=== PATIENT | female | born 1955 | race Caucasian/White ===

== ENCOUNTER → 2016-05-16 | Outpatient (CLI) | payer MEDICAID, OTHER ==
[~2016-05-16] MED LIST: CEPH500C PO; CYCL10TA9 PO; HYDR-757 PO; PRD20T PO; RIVA15TA PO; RIVA20TA4 PO; TRAM50TA2 PO
--- OUTSIDE RECORDS SUMMARY | 2016-05-16 11:12 | XMS REPORT | Continuity of Care Document ---
Author Author [facility] Organization [facility] Address Unknown Phone Unavailable Care Team Providers Care Rubber Engraver Name Role Phone Ifeoma Anderson PCP [phone] Source Comments Some departments are not documenting in the electronic medical record. If you do not see the information that you expected, contact Release of Information in the Health Information Management department at [phone] for further assistance in locating additional records.[facility] Active Allergies and Adverse Reactions No Known Allergies Current Medications No known medications Active Problems Not on file Social History Tobacco Use Types Packs/Day Years Used Date Never Smoker Alcohol Use Drinks/Week oz/Week Comments No 0 Standard 0.0 drinks or equivalent Last Filed Vital Signs Vital Sign Reading Time Taken Blood Pressure 128/84 10/31/2015 2:26 PM CDT Pulse 87 10/31/2015 2:26 PM CDT Temperature - - Respiratory Rate 14 10/31/2015 2:26 PM CDT Height 1.549 m (5' 1") 10/31/2015 2:26 PM CDT Weight 77.111 kg (170 lb) 10/31/2015 2:26 PM CDT Body Mass Index 32.14 10/31/2015 2:26 PM CDT Oxygen Saturation 98% 10/31/2015 2:26 PM CDT Plan of Care Health Maintenance Due Date Last Done Comments Hepatitis C Screening 1954 Physical (Comprehensive) 1961 Exam Pertussis Vaccine 1965 Tetanus Vaccine 12/09/1971 Cervical Cancer Screening 12/09/1975 Breast Cancer Screening 1994 Colorectal Cancer 2004 Screening Shingles Vaccine 2014 Influenza Vaccine 12/13/2015 Results from Last 3 Months Not on file
--- NOTE | 2016-05-16 14:30 | Diagnostic Imaging Report ---
PROCEDURE: US Thyroid. TECHNIQUE: Multiple real-time grayscale images were obtained of the thyroid in various projections. INDICATION: Thyroid nodule follow-up FINDINGS: Right lobe of the thyroid measures 3.7 x 1.4 x 1.4 cm. Left lobe of the thyroid measures 3.2 x 1.2 x 1.0 cm. There is a 10 x 12 x 11 mm nodule in the central aspect of the right lobe of the thyroid. It is isoechoic with some areas of cystic transformation consistent with a degenerating colloid nodule. There is no abnormal vascularity or microcalcification. IMPRESSION: Solitary thyroid nodule in the right lobe of the thyroid is not significantly changed from sonogram of 10/03/2015 and has features suggesting a degenerating colloid nodule. Dictated by: Dictated on workstation # [id number]
== END ==
LOC: RAD 11:09
PROVIDERS: ATTEND Family Medicine
DX: E04.1 Nontoxic single thyroid nodule (principal)
CPT/HCPCS: 76536

== ENCOUNTER 2017-04-03 09:35 | Emergency (ER) | payer MEDICAID, OTHER ==
[~2017-04-03] VITALS: Ht 154.9 cm; Wt 77.1 kg
[2017-04-03 10:12] LABS: BASOPHILS % (AUTO) 0 % (0-10); EOSINOPHILS % (AUTO) 0 % (0-10); LYMPHOCYTES # (AUTO) 2.3 X 10^3 (1.0-4.0); LYMPHOCYTES % (AUTO) 10 % (12-44); MEAN CORPUSCULAR HEMOGLOBIN 32 PG (25-34); MEAN CORPUSCULAR HGB CONC 34 G/DL (32-36); MEAN CORPUSCULAR VOLUME 92 FL (80-99); MEAN PLATELET VOLUME 10.3 FL (7.4-10.4); MONOCYTES # (AUTO) 1.8 X 10^3 (0.0-1.0); MONOCYTES % (AUTO) 8 % (0-12); NEUTROPHILS % (AUTO) 82 % (42-75); PLATELET COUNT 333 10^3/uL (130-400); RED BLOOD COUNT 4.67 10^6/uL (4.35-5.85); RED CELL DISTRIBUTION WIDTH 11.9 % (10.0-14.5); WHITE BLOOD COUNT 23.1 10^3/uL (4.3-11.0)
[2017-04-03] MEDS ORDERED: RANI75TA21 PO (10:22)
[2017-04-03 10:29] LABS: ALANINE AMINOTRANSFERASE 30 U/L (0-55); ALBUMIN 4.2 GM/DL (3.2-4.5); ANION GAP 14 MMOL/L (5-14); ASPARTATE AMINO TRANSFERASE 27 U/L (5-34); BILIRUBIN,TOTAL 0.5 MG/DL (0.1-1.0); BLOOD UREA NITROGEN 12 MG/DL (7-18); BUN/CREATININE RATIO 13; CALCIUM 9.7 MG/DL (8.5-10.1); CARBON DIOXIDE 19 MMOL/L (21-32); CHLORIDE 104 MMOL/L (98-107); CREATININE SERUM 0.93 MG/DL (0.60-1.30); GFR ESTIMATED > 60; GLUCOSE 154 MG/DL (70-105); POTASSIUM 4.4 MMOL/L (3.6-5.0); SODIUM 137 MMOL/L (135-145); TOTAL PROTEIN 7.7 GM/DL (6.4-8.2)
[2017-04-03] MEDS ORDERED: ONDANSETRON 4 MG/2 ML (SDV) Z0FRAN ONE (10:36)
--- NOTE | 2017-04-03 10:41 | Diagnostic Imaging Report ---
INDICATION: Fever. Cough. Back pain. COMPARISON: 11/14/2014/ FINDINGS: Single frontal view of the chest demonstrates normal heart size and pulmonary vascularity. The lungs are well aerated and clear. No large pleural effusion or pneumothorax is seen. The visualized osseous structures show no acute abnormalities. IMPRESSION: 1. No acute cardiopulmonary process. Dictated by: Dictated on workstation # [id number]
[2017-04-03 10:50] LABS: LYMPHOCYTES % (MANUAL) 15 %; NEUTROPHILS % (MANUAL) 82 %
--- NOTE | 2017-04-03 11:30 | ED General ---
General Chief Complaint: Fever-Adult/Adol Stated Complaint: SORE THROAT,NAUSEA Nursing Triage Note: PT HAS HAD FEVER, STATES TOOK MOTRIN APPROX 2 HOURS AGO, COUGHING UP YELLOW GREEN SPUTUM, HAS PAIN IN BACK Nursing Sepsis Screen: No Definite Risk Source of Information: Patient Exam Limitations: No Limitations History of Present Illness Time Seen by Provider: 11:00 Initial Comments The patient reports that today she has been ill for about a week. Initially it had to do with a sore throat and a slight cough. His progressed over the week. Over the last 2 days she has been coughing up colored phlegm and has felt chilled and sweaty. She has not taken her temperature. There has been some dyspnea. She has a past history of cigarette smoke. Timing/Duration: 6-7 Days Severity: Moderate Associated Systoms: Cough, Diaphoresis, Fever/Chills, Loss of Appetite, Shortness of Air Allergies and Home Medications Allergies Coded Allergies: No Known Drug Allergies (Unverified , 06/07/13) Home Medications Ranitidine HCl 75 Mg Tablet, Unknown Dose PO, (Reported) Constitutional: see HPI EENTM: nose congestion, throat pain Respiratory: see HPI, cough, dyspnea on exertion, orthopnea, phlegm, short of breath Cardiovascular: no symptoms reported Gastrointestinal: nausea, vomiting Musculoskeletal: muscle pain Skin: no symptoms reported Psychiatric/Neurological: No Symptoms Reported Hematologic/Lymphatic: No Symptoms Reported Immunological/Allergic: no symptoms reported Past Wefznme-Ybxgql-Dyrdqi Hx Patient Social History Recent Foreign Travel: No Contact w/Someone Who Travel: No Recent Infectious Disease Expo: No Recent Hopitalizations: No Seasonal Allergies Seasonal Allergies: No Respiratory Respiratory Disorders: Pulmonary Embolism Cardiovascular Cardiac Disorders: Deep Vein Thrombosis Neurological Neurological Disorders: Brain Tumor Blood Transfusions Adverse Reaction to a Blood Tr: No Family Medical History Significant Family History: No Pertinent Family Hx Physical Exam-Suspected Sepsis Physical Exam Vital Signs Vital Sign - Last 12Hours 04/03/17 09:55 Temp 98.8 Pulse 125 Resp 15 B/P (MAP) 142/80 (100) Capillary Refill : Less Than 3 Seconds Blood Pressure Mean: 100 General Appearance: Other (course and somewhat flushed) Eyes: Bilateral Eye Normal Inspection HEENT: Normal ENT Inspection Neck: Normal Inspection Respiratory: Decreased Breath Sounds Cardiovascular: Regular Rate, Rhythm, No Edema, No Gallop, No JVD, No Murmur Gastrointestinal: Normal Bowel Sounds, No Organomegaly, No Pulsatile Mass, Non Tender, Soft Back: Normal Inspection, No CVA Tenderness, No Vertebral Tenderness Extremity: Normal Capillary Refill, Normal Inspection, Normal Range of Motion, Non Tender, No Calf Tenderness, No Pedal Edema Neurologic/Psychiatric: Alert, Oriented x3 Skin: normal color, warm/dry Lymphatic: No Adenopathy Focused Exam Evaluation Lactate Level Laboratory Tests 04/03/17 09:55: Lactic Acid Level 1.42 Lactic Acid Level Laboratory Tests Test 04/03/17 09:55 Lactic Acid Level 1.42 MMOL/L (0.50-2.00) Progress/Results/Core Measures Suspected Sepsis Recent Fever Within 48 Hours: No Infection Criteria Present: None New/Unexplained Altered Menta: No Sepsis Screen: No Definite Risk Sepsis Diagnosis: SIRS Temperature:98.8 Pulse: 125 Respiratory Rate: 15 Laboratory Tests 04/03/17 09:55: White Blood Count 23.1H Blood Pressure 142 /80 Mean: 100 Laboratory Tests 04/03/17 09:55: Lactic Acid Level 1.42 Laboratory Tests 04/03/17 09:55: Creatinine 0.93, Platelet Count 333, Total Bilirubin 0.5 Results/Orders Lab Results Laboratory Tests Test 04/03/17 09:55 Range/Units White Blood Count 23.1 H 4.3-11.0 10^3/uL Red Blood Count 4.67 4.35-5.85 10^6/uL Hemoglobin 14.8 11.5-16.0 G/DL Hematocrit 43 35-52 % Mean Corpuscular Volume 92 80-99 FL Mean Corpuscular Hemoglobin 32 25-34 PG Mean Corpuscular Hemoglobin Concent 34 32-36 G/DL Red Cell Distribution Width 11.9 10.0-14.5 % Platelet Count 333 130-400 10^3/uL Mean Platelet Volume 10.3 7.4-10.4 FL Neutrophils (%) (Auto) 82 H 42-75 % Lymphocytes (%) (Auto) 10 L 12-44 % Monocytes (%) (Auto) 8 0-12 % Eosinophils (%) (Auto) 0 0-10 % Basophils (%) (Auto) 0 0-10 % Neutrophils # (Auto) 19.0 H 1.8-7.8 X 10^3 Lymphocytes # (Auto) 2.3 1.0-4.0 X 10^3 Monocytes # (Auto) 1.8 H 0.0-1.0 X 10^3 Eosinophils # (Auto) 0.0 0.0-0.3 10^3/uL Basophils # (Auto) 0.0 0.0-0.1 10^3/uL Neutrophils % (Manual) 82 % Lymphocytes % (Manual) 15 % Monocytes % (Manual) 3 % Blood Morphology Comment NORMAL Sodium Level 137 135-145 MMOL/L Potassium Level 4.4 3.6-5.0 MMOL/L Chloride Level 104 98-107 MMOL/L Carbon Dioxide Level 19 L 21-32 MMOL/L Anion Gap 14 5-14 MMOL/L Blood Urea Nitrogen 12 7-18 MG/DL Creatinine 0.93 0.60-1.30 MG/DL Estimat Glomerular Filtration Rate > 60 BUN/Creatinine Ratio 13 Glucose Level 154 H 70-105 MG/DL Lactic Acid Level 1.42 0.50-2.00 MMOL/L Calcium Level 9.7 8.5-10.1 MG/DL Total Bilirubin 0.5 0.1-1.0 MG/DL Aspartate Amino Transf (AST/SGOT) 27 5-34 U/L Alanine Aminotransferase (ALT/SGPT) 30 0-55 U/L Alkaline Phosphatase 105 40-136 U/L Total Protein 7.7 6.4-8.2 GM/DL Albumin 4.2 3.2-4.5 GM/DL Micro Results Microbiology 04/03/17 Influenza Types A,B Antigen (ALEJANDRO) - Final, Complete My Orders Orders - LANCE HOLCOMB MD Cbc With Automated Diff (04/03/17 10:04) Comprehensive Metabolic Panel (04/03/17 10:04) Ua Culture If Indicated (04/03/17 10:04) Blood Culture (04/03/17 10:04) Influenza A And B Antigens (04/03/17 10:04) Sputum Culture (04/03/17 10:04) Chest 1 View, Ap/Pa Only (04/03/17 10:04) Lactic Acid Analyzer (04/03/17 10:04) Manual Differential (04/03/17 09:55) Ondansetron Injection (Zofran Injectio (04/03/17 10:36) Ns Iv 1000 Ml (Sodium Chloride 0.9%) (04/03/17 11:45) Ceftriaxone Injection (Rocephin Injectio (04/03/17 11:45) Medications Given in ED Current Medications Medications Dose Ordered Sig/Nisa Route Start Time Stop Time Status Last Admin Dose Admin Ondansetron HCl 4 mg STK-MED ONCE .ROUTE 04/03/17 10:36 04/03/17 10:39 DC 04/03/17 10:40 4 MG Vital Signs/I&O Vital Sign - Last 12Hours 04/03/17 09:55 Temp 98.8 Pulse 125 Resp 15 B/P (MAP) 142/80 (100) Capillary Refill : Less Than 3 Seconds Blood Pressure Mean: 100 Departure Impression Impression: Primary Impression: bronchitis Disposition: 01 HOME, SELF-CARE Condition: Stable/Unchanged Departure-Patient Inst. Decision time for Depature: 12:31 Referrals: ELHAM MARTINO MD (PCP/Family) Primary Care Physician Add. Discharge Instructions: All discharge instructions reviewed with patient and/or family. Voiced understanding. Beginning tomorrow morning take the Omnicef twice daily until gone. Lots of liquids If condition declines return to emergency room Scripts Cefdinir (Cefdinir) 300 Mg Capsule 300 MG PO TWICE A DAY, #14 CAP Prov: LANCE HOLCOMB MD 04/03/17 LANCE HOLCOMB MD Apr 03, 2017 11:29
[2017-04-03] MEDS ORDERED: NS IV 1000 ML 1,000 ML IV SCH (11:45)
[2017-04-03] MEDS ORDERED: cefTRIAXone INJECTION 1,000 MG in NS (IVPB) 50 ML IV ONE (11:45)
[2017-04-03] MEDS ORDERED: CEFD300C3 PO (12:36)
[2017-04-03] MEDS ORDERED: ONDA8TAB9 PO (12:52)
[2017-04-03 13:38] VITALS: BP 142/80
== END 2017-04-03 13:38 | disposition home or self-care (01) ==
LOC: EDUNIT# 09:35 → ER 09:38
DX: J40 Bronchitis, not specified as acute or chronic (principal); Z86.718 Personal history of other venous thrombosis and embolism; Z86.711 Personal history of pulmonary embolism; Z86.012 Personal history of benign carcinoid tumor
CPT/HCPCS: 36415; 71010; 80053; 83605; 85007; 85027; 87040; 87804; 96374; 96375

== ENCOUNTER → 2017-05-05 | Outpatient (CLI) | payer MEDICAID ==
[~2017-05-05] MED LIST changes: +CEFD300C3 PO; +ONDA8TAB9 PO; +RANI75TA21 PO
--- NOTE | 2017-05-05 12:13 | Diagnostic Imaging Report ---
INDICATION: Routine screening. COMPARISON: Comparison is made with prior exams from 11/15/2013 and 01/21/2012. FINDINGS: Moderate density is noted bilaterally. The parenchymal pattern is stable. No dominant mass or malignant appearing microcalcifications are seen. The axillae are unremarkable. IMPRESSION: No mammographic features suspicious for malignancy are identified. ACR BI-RADS Category 1: Negative. Result letter will be mailed to the patient. Note: At least 10% of breast cancer is not imaged by mammography. Dictated by: Dictated on workstation # [id number]
== END ==
LOC: RAD 10:49
PROVIDERS: ATTEND Physician Assistant
DX: Z12.31 Encounter for screening mammogram for malignant neoplasm of breast (principal)
CPT/HCPCS: 77067

== ENCOUNTER → 2017-05-05 | Outpatient (CLI) | payer MEDICAID ==
--- NOTE | 2017-05-06 08:45 | Diagnostic Imaging Report ---
INDICATION: 19-ftff-eguw history of smoking. Screening protocol. Intermittent chest pain and shortness of air. COMPARISON: None. TECHNIQUE: Low-dose CT of the chest was performed per department protocol for low dose chest screening. COMPARISON: CT angio chest dated 10/18/2014. FINDINGS: Evaluation of lung carrera demonstrates small 6 mm groundglass micronodular density within the posterior left lower lobe. More superiorly within the anterolateral margins of the left lower lobe, there are 2 additional 6 mm groundglass micronodular densities as well (images 178 and 142, series 5). No other distinct pulmonary nodules or masses are seen. There is mild air trapping consistent with background of emphysematous disease. There is no focal consolidation, pleural effusion, or pneumothorax. Cardiomediastinal structures are suboptimally evaluated given the low-dose noncontrast nature of the exam, but the heart size is within normal limits. There is no large pericardial effusion. 8 mm paratracheal lymph node is noted interposed between the azygos vein and trachea. This is stable. Otherwise, no pathologically enlarged or morphologically abnormal adenopathy is seen within the mediastinum, cynthia, nor axilla. Bony structures show no acute abnormalities. Included portions of the upper abdomen are unremarkable. IMPRESSION: 1. Three separate 6 mm groundglass micronodules within the left lower lobe as described above. Continued annual screening with low-dose CT of the chest is recommended. 2. Otherwise, no acute cardiopulmonary process. LungRads Category: 2 Modifiers: None. Other significant findings: None. Dictated by: Dictated on workstation # [id number]
== END ==
LOC: RAD 10:51
PROVIDERS: ATTEND Physician Assistant
DX: Z12.2 Encounter for screening for malignant neoplasm of respiratory organs (principal); R92.8 Other abnormal and inconclusive findings on diagnostic imaging of breast; Z87.891 Personal history of nicotine dependence

== ENCOUNTER 2017-10-29 05:33 | Outpatient (CLI) | payer MEDICAID ==
[~2017-10-29] VITALS: Ht 154.9 cm; Wt 77.1 kg
[2017-10-29] MEDS ORDERED: RANI150T46 PO (10:36)
[2017-10-29] MEDS ORDERED: CALC500T7 PO (10:36)
== END 2017-10-29 10:43 ==
LOC: PREOP 05:33
PROVIDERS: ATTEND Surgery
DX: Z01.818 Encounter for other preprocedural examination (principal)

== ENCOUNTER 2017-11-02 09:09 | Emergency (ER) | payer MEDICAID ==
[~2017-11-02] VITALS: Ht 154.9 cm; Wt 77.1 kg
[~2017-11-02 09:09] MED LIST changes: +CALC500T7 PO; +RANI150T46 PO
--- OUTSIDE RECORDS SUMMARY | 2017-11-02 09:15 | XMS REPORT | Clinical Summary ---
Author Author [facility] Organization [facility] Address Unknown Phone Unavailable Care Team Providers Care Crankshaft Straightener Name Role Phone Ifeoma Anderson MD PCP Sade Helm MD Unavailable Source Comments Some departments are not documenting in the electronic medical record. If you do not see the information that you expected, contact Release of Information in the Health Information Management department at [phone] for further assistance in locating additional records.[facility] Allergies No Known Allergies Current Medications No known medications Active Problems Not on file Family History Medical History Relation Name Comments Cancer Father Relation Name Status Comments Father Mother Social History Tobacco Use Types Packs/Day Years Used Date Never Smoker Alcohol Use Drinks/Week oz/Week Comments No 0 Standard 0.0 drinks or equivalent Sex Assigned at Date Recorded Not on file Last Filed Vital Signs Vital Sign Reading Time Taken Blood Pressure 128/84 10/31/2015 2:26 PM CDT Pulse 87 10/31/2015 2:26 PM CDT Temperature - - Respiratory Rate 14 10/31/2015 2:26 PM CDT Oxygen Saturation 98% 10/31/2015 2:26 PM CDT Inhaled Oxygen - - Concentration Weight 77.1 kg (170 lb) 10/31/2015 2:26 PM CDT Height 154.9 cm (5' 1") 10/31/2015 2:26 PM CDT Body Mass Index 32.12 10/31/2015 2:26 PM CDT Plan of Treatment Health Maintenance Due Date Last Done Comments HEPATITIS C SCREENING 1955 PHYSICAL (COMPREHENSIVE) 1961 EXAM PERTUSSIS VACCINE 1965 HIV SCREENING 1969 TETANUS VACCINE 12/09/1971 CERVICAL CANCER SCREENING 1984 BREAST CANCER SCREENING 1994 COLORECTAL CANCER 2004 SCREENING SHINGLES RECOMBINANT 2004 VACCINE (1 of 2) INFLUENZA VACCINE 01/11/2018 Results Not on filefrom Last 3 Months
--- OUTSIDE RECORDS SUMMARY | 2017-11-02 09:17 | XMS REPORT | Clinical Summary ---
Author Author User, [employer] Organization Count Includes [facility] Physician [place] Address Unknown Phone Unavailable Allergies, Adverse Reactions, Alerts Allergy Name Reaction Description Start Date Severity Status Provider No Known Allergies Salazar Neo Conditions or Problems Problem Name Problem Code Onset Date Status Entry Date Provider Comment Standard Description Annotate NEUROPATHY, IDIOPATHIC PERIPHERAL 356.9 Resolved Che Loera Unspecified idiopathic peripheral neuropathy BACK PAIN 724.5 Resolved Che Loera Backache, unspecified ABDOMINAL PAIN, RIGHT LOWER QUADRANT 789.03 Resolved Che Loera Abdominal pain, right lower quadrant NAUSEA 787.02 Resolved Che Loera Nausea alone FLANK PAIN, LEFT 789.09 Resolved Che Loera Abdominal pain, other specified site; multiple sites ABNORMAL VAGINAL BLEEDING 626.9 Resolved Che Loera Unspecified disorders of menstruation and other abnormal bleeding from female genital tract SINUSITIS, SPHENOIDAL, ACUTE 461.3 Resolved Che Loera Acute sphenoidal sinusitis BRONCHITIS 490 Resolved Che Loera Bronchitis, not specified as acute or chronic INFLUENZA W/RESPIRATORY MANIFESTATION NEC 487.1 Inactive Che Loera Influenza with other respiratory manifestations LUMBAR RADICULOPATHY, LEFT 724.4 Active Che Loera Thoracic or lumbosacral neuritis or radiculitis, unspecified WELL WOMAN V70.0 Resolved Che Loera Routine general medical examination at a health care facility DIZZINESS 780.4 Active Che Loera Dizziness and giddiness NECK PAIN 723.1 Active Che Loera Cervicalgia DISORDERS OF MENINGES, NOT ELSEWHERE CLASSIFIED 349.2 Active Che Loera Disorders of meninges, not elsewhere classified ULCERATIVE (CHRONIC) PROCTITIS 556.2 Active Che Loera Ulcerative (chronic) proctitis THYROID NODULE 241.0 Active Che Loera Nontoxic uninodular goiter DVT 451.19 Active Che Loera Phlebitis and thrombophlebitis of other deep vessels of lower extremities OTHER PULMONARY EMBOLISM AND INFARCTION 415.19 Active Che Loera Other pulmonary embolism and infarction UTI 599.0 Active Che Loera Urinary tract infection, site not specified NONTRAUMATIC RUPTURE OF ACHILLES TENDON 727.67 Active Che Loera Nontraumatic rupture of achilles tendon Medication List Medication Instructions Start Date Stop Date Generic Name NDC Status Provider Patient Instruction XARELTO 20 MG TABS 1 po daily beginning 11/08/14 RIVAROXABAN 42851175556 Active Che Loera CALMOSEPTINE 0.44-20.625 % OINT Apply to affected areas TID prn MENTHOL-ZINC OXIDE 93708049274 Active Che Loera VALIUM 2 MG TAB 1 PO one hour before MRI and may repeat if needed DIAZEPAM 89081286753 No Longer Active Che Loera AUGMENTIN 875-125 MG TAB 1 PO BID AMOXICILLIN-POT CLAVULANATE 44715633988 No Longer Active Che ROSALES'S NASAL SPRAY (DEXAMETHASONE, GENTAMICIN, SALINE) 2 puffs each nostril TID for [address] ROSALES'S NASAL SPRAY ( DEXAMETHASONE, GENTAMICIN, SALINE) No Longer Active Che Loera ATENOLOL 25 MG TABS 1 po daily ATENOLOL 62206353047 No Longer Active Che Loera MULTIVITAMINS TABS 1 po daily MULTIPLE VITAMIN 71831271875 Active Che Loera Vital Signs Date Name Value Unit Range Description blood pressure, diastolic - 8462-4 75 mm[Hg] BP whatley blood pressure, systolic - 8480-6 130 mm[Hg] BP sys pulse rate E&M - 8867-4 78 /min Heart rate respiratory rate E&M - 9279-1 14 /min Resp rate temperature E&M 99.2 [degF] Body temperature weight E&M - 3141-9 169 [lb_av] Weight Measured blood pressure, diastolic - 8462-4 80 mm[Hg] BP whatley blood pressure, systolic - 8480-6 120 mm[Hg] BP sys pulse rate E&M - 8867-4 84 /min Heart rate respiratory rate E&M - 9279-1 14 /min Resp rate temperature E&M 97.8 [degF] Body temperature weight E&M - 3141-9 170 [lb_av] Weight Measured blood pressure, diastolic - 8462-4 88 mm[Hg] BP whatley blood pressure, systolic - 8480-6 134 mm[Hg] BP sys pulse rate E&M - 8867-4 74 /min Heart rate respiratory rate E&M - 9279-1 14 /min Resp rate weight E&M - 3141-9 173 [lb_av] Weight Measured blood pressure, diastolic - 8462-4 96 mm[Hg] BP whatley blood pressure, systolic - 8480-6 140 mm[Hg] BP sys pulse rate E&M - 8867-4 74 /min Heart rate respiratory rate E&M - 9279-1 14 /min Resp rate weight E&M - 3141-9 174 [lb_av] Weight Measured blood pressure, diastolic - 8462-4 85 mm[Hg] BP whatley blood pressure, systolic - 8480-6 135 mm[Hg] BP sys pulse rate E&M - 8867-4 102 /min Heart rate respiratory rate E&M - 9279-1 14 /min Resp rate temperature E&M 97.8 [degF] Body temperature weight E&M - 3141-9 176 [lb_av] Weight Measured Diagnostic Results Date Name Value Unit Range Description Clinical Lists Update: CBC,CMP,FLP,TSH,HGA1C,ESR - Chemistry protein, total, serum 6.9 g/dL glucose, plasma fasting 101 mg/dL chloride, serum 110 mmol/L cholesterol, serum 253 mg/dL bilirubin, serum, total 0.4 mg/dL carbon dioxide, venous blood 20 mmol/L triglyceride, serum, fasting 135 mg/dL creatinine, serum 0.88 mg/dL very low density lipoproteins 27 mg/dL albumin, serum 4.1 g/dL aspartate aminotransferase (SGOT), serum 20 U/L alkaline phosphatase, serum 80 U/L Estimated Glomerular Filtration Rate (calc) >60 mL/min/1.73m2 urea nitrogen, blood 20 mg/dL alanine aminotransferase (SGPT), serum 19 U/L calcium, serum 9.6 mg/dL sodium, serum 141 mmol/L potassium, serum 4.5 mmol/L LDL cholesterol, serum 175 mg/dL thyroid stimulating hormone, serum 2.06 u[iU]/mL hemoglobin A1C, blood, as % of total hemoglobin 5.7 % HDL cholesterol, serum 62 mg/dL Clinical Lists Update: CBC,CMP,FLP,TSH,HGA1C,ESR - Hematology erythrocyte sedimentation rate 15 mm/h hematocrit, blood 42 % hemoglobin, blood 14.6 g/dL platelet count 332 10*3/mm3 red blood cell distribution width 12.1 % erythrocyte (RBC) count 4.53 10*6/mm3 mean corpuscular volume, RBC 94 fL leukocyte count, blood 8.0 10*3/mm3 Clinical Lists Update: ER LABS - Chemistry albumin, serum 4.5 g/dL alkaline phosphatase, serum 82 U/L urea nitrogen, blood 11 mg/dL calcium, serum 9.9 mg/dL chloride, serum 105 mmol/L carbon dioxide, venous blood 27 mmol/L creatinine, serum 1.08 mg/dL potassium, serum 4.3 mmol/L protein, total, serum 7.3 g/dL aspartate aminotransferase (SGOT), serum 18 U/L alanine aminotransferase (SGPT), serum 20 U/L bilirubin, serum, total 0.6 mg/dL sodium, serum 139 mmol/L glucose, plasma fasting 169 mg/dL Estimated Glomerular Filtration Rate (calc) 52 mL/min/1.73m2 Clinical Lists Update: ER LABS - Coagulation PTT patient 26 s international normalized ratio (INR) 1.0 prothrombin time (patient) 13.1 s Clinical Lists Update: ER LABS - Hematology mean corpuscular volume, RBC 93 fL hemoglobin, blood 15.3 g/dL hematocrit, blood 46 % erythrocyte (RBC) count 4.88 10*6/mm3 red blood cell distribution width 12.2 % leukocyte count, blood 10.2 10*3/mm3 platelet count 311 10*3/mm3 Clinical Lists Update: ER LABS 10-19-14 - Chemistry Estimated Glomerular Filtration Rate (calc) >60 mL/min/1.73m2 glucose, plasma fasting 108 mg/dL sodium, serum 139 mmol/L bilirubin, serum, total 0.6 mg/dL alanine aminotransferase (SGPT), serum 18 U/L aspartate aminotransferase (SGOT), serum 17 U/L protein, total, serum 6.4 g/dL potassium, serum 4.3 mmol/L creatinine, serum 0.8 mg/dL carbon dioxide, venous blood 25 mmol/L chloride, serum 107 mmol/L calcium, serum 9.5 mg/dL urea nitrogen, blood 8 mg/dL alkaline phosphatase, serum 77 U/L albumin, serum 4.0 g/dL Clinical Lists Update: ER LABS 10-19-14 - Coagulation international normalized ratio (INR) 1.0 PTT patient 26 s prothrombin time (patient) 13.1 s Clinical Lists Update: ER LABS 10-19-14 - Hematology erythrocyte (RBC) count 4.75 10*6/mm3 leukocyte count, blood 12.0 10*3/mm3 hematocrit, blood 44 % hemoglobin, blood 14.9 g/dL platelet count 293 10*3/mm3 red blood cell distribution width 12.3 % mean corpuscular volume, RBC 93 fL Clinical Lists Update: ER LABS 10-19-14 - Urinalysis pH, urine, semiquantitative 5 nitrite, urine, semiquantitative neg ketones, urine, by test strip 1+ bilirubin, urine neg glucose, urine, semiquantitative neg specific gravity, urine 1.020 urobilinogen, urine, semiquantitative (dipstick) normal appearance, urine Cloudy Yellow WBC urine on microscopy 5-10 {Cells}/[HPF] RBC urine by microscopy 0-2 bacteria, urine microscopy few hyaline casts, urine none /[LPF] protein, urine, semiquantitative (dipstick) 2+ mucus on urinalysis small blood in urine (hemoglobin) by dipstick 1+ epithelial cells, urine 0-2 /[LPF] Clinical Lists Update: ER LABS 10-18-14 - Chemistry Estimated Glomerular Filtration Rate (calc) 52 mL/min/1.73m2 glucose, plasma fasting 169 mg/dL albumin, serum 4.5 g/dL alkaline phosphatase, serum 82 U/L urea nitrogen, blood 11 mg/dL calcium, serum 9.9 mg/dL chloride, serum 105 mmol/L carbon dioxide, venous blood 27 mmol/L creatinine, serum 1.08 mg/dL potassium, serum 4.3 mmol/L protein, total, serum 7.3 g/dL sodium, serum 139 mmol/L bilirubin, serum, total 0.6 mg/dL alanine aminotransferase (SGPT), serum 20 U/L aspartate aminotransferase (SGOT), serum 18 U/L Clinical Lists Update: ER LABS 10-18-14 - Coagulation international normalized ratio (INR) 1.0 PTT patient 26 s prothrombin time (patient) 13.1 s Clinical Lists Update: ER LABS 10-18-14 - Hematology leukocyte count, blood 10.2 10*3/mm3 hematocrit, blood 46 % hemoglobin, blood 15.3 g/dL platelet count 311 10*3/mm3 erythrocyte (RBC) count 4.88 10*6/mm3 red blood cell distribution width 12.2 % mean corpuscular volume, RBC 93 fL Clinical Lists Update: ER LABS 11-14-14 - Chemistry Estimated Glomerular Filtration Rate (calc) 56 mL/min/1.73m2 glucose, plasma fasting 110 mg/dL albumin, serum 4.2 g/dL alkaline phosphatase, serum 73 U/L urea nitrogen, blood 18 mg/dL calcium, serum 9.6 mg/dL chloride, serum 105 mmol/L carbon dioxide, venous blood 24 mmol/L anion gap, serum 9 sodium, serum 138 mmol/L bilirubin, serum, total 0.4 mg/dL alanine aminotransferase (SGPT), serum 18 U/L aspartate aminotransferase (SGOT), serum 20 U/L protein, total, serum 6.7 g/dL potassium, serum 4.3 mmol/L creatinine, serum 1.01 mg/dL Clinical Lists Update: ER LABS 11-14-14 - Hematology erythrocyte (RBC) count 4.52 10*6/mm3 leukocyte count, blood 9.9 10*3/mm3 mean corpuscular volume, RBC 93 fL red blood cell distribution width 12.0 % hemoglobin, blood 14.2 g/dL platelet count 358 10*3/mm3 hematocrit, blood 42 % Encounters Code Encounter Date Provider Facility CPT-52118 Ofc Vst, Est Level IV 21:36:45 CDT Che Loera DO, FACP CPT-54594 Ofc Vst, Est Level IV 11:23:40 CDT Che Marina Luz Maria Loera, DO, FACP CPT-94767 Ofc Vst, Est Level IV 17:08:05 OCCUPATIONAL THERAPY AIDE Che Marina Luz Maria Loera, DO, FACP CPT-48248 Ofc Vst, Est Level IV 12:58:01 OCCUPATIONAL THERAPY AIDE Che Marina Luz Maria Loera, DO, FACP CPT-60100 Ofc Vst, Est Level IV 17:05:52 OCCUPATIONAL THERAPY AIDE Che Marina Luz Maria Loera, DO, FACP CPT-13015 Ofc Vst, Est Level III 12:04:27 OCCUPATIONAL THERAPY AIDE Che Marina Luz Maria Loera, DO, FACP CPT-26371 Ofc Vst, Est Level III 08:05:55 OCCUPATIONAL THERAPY AIDE Che Marina Luz Maria Loera, DO, FACP CPT-46329 Ofc Vst, New Level III 15:16:23 CDT Che Marina Luz Maria Loera, DO, FACP CPT-62553 Ofc Vst, Est Level III 10:03:49 CDT Che Loera Count Includes [facility] Physician [place] CPT-04459 Ofc Vst, New Level III 09:46:58 CDT Che Loera [facility] [place] Procedures Code Procedure Name Date Entry Date Standard Description CPT-46367 Preventive, Est, (40-64) 12:36:52 CDT
--- OUTSIDE RECORDS SUMMARY | 2017-11-02 09:18 | XMS REPORT ---
Author Author SHANA EDGE [facility] [employer] Address Unknown Phone Unavailable Care Team Providers Care Early Breastfeeding Care Specialist Name Role Phone SHANA EDGE CP Unavailable Allergies, Adverse Reactions, Alerts Substance Reaction Event Type Sulfamethoxazole questionable allergy Drug Allergy Problems Problem Type Condition Code Onset Dates Condition Status Problem Meningioma D32.9 Active Problem Thyroid nodule E04.1 Active Problem DVT (deep venous thrombosis), unspecified laterality I82.409 Active Problem Pure hypercholesterolemia E78.0 Active Assessment Dental examination Z01.20 Active Medications Medication Code System Code Instructions Start Date End Date Status Dosage Nystatin [facility] [address]-32 572522 UNIT/GM Externally Three times a day until rash gone x 2 days Dec 15, 2014 1 application to affected area Xarelto [facility] [address]-09 20 MG Orally Once a day November 08, 2014 1 tablet with food Keflex [facility] [address]-00 500 MG Orally 3 times a day Jan 24, 2015 Feb 03, 2015 1 capsule Procedures Procedure Coding System Code Date INTRAORL-PERIAPICAL 1 FILM 65563 CPT-4 D0220 Jan 30, 2015 INTRAORL-PERIAPICAL EA ADD FILM CPT-4 D0230 Jan 30, 2015 LTD ORAL EVALUATION - PROBLEM FOCUS CPT-4 D0140 Jan 30, 2015 Vital Signs Date/Time: Jan 30, 2015 Blood Pressure Diastolic 89 mmHg Blood Pressure Systolic 131 mmHg Results No Known Results Summary Purpose [employer] Submission
--- OUTSIDE RECORDS SUMMARY | 2017-11-02 09:18 | XMS REPORT ---
Author Author YOHANA SANDS Organization [employer] Address Unknown Phone Unavailable Care Team Providers Care Peer Financial Counselor Name Role Phone YOHANA SANDS CP Unavailable Allergies, Adverse Reactions, Alerts Substance Reaction Event Type Sulfamethoxazole questionable allergy Drug Allergy Problems Problem Type Condition ICD-9 Code Onset Dates Condition Status Problem Meningioma 225.2 Active Problem Thyroid nodule 241.0 Active Problem Venous thromboembolism (VTE) 453.9 Active Problem Hyperlipidemia 272.4 Active Assessment Dental examination V72.2 Active Medications No Known Medications Procedures Procedure Coding System Code Date INTRAORL-PERIAPICAL EA ADD FILM CPT-4 D0230 Dec 29, 2014 INTRAORL-PERIAPICAL EA ADD FILM CPT-4 D0230 Dec 29, 2014 PERIODIC ORAL EXAMINATION CPT-4 D0120 Dec 25, 2014 TOPICAL FLUORIDE VARNISH CPT-4 D1206 Dec 25, 2014 Periodontal maint procedures CPT-4 D4910 Dec 25, 2014 INTRAORL-PERIAPICAL 1 FILM 17138 CPT-4 D0220 Dec 25, 2014 INTRAORL-PERIAPICAL 1 FILM 46626 CPT-4 D0220 Dec 25, 2014 BITEWINGS - FOUR FILMS CPT-4 D0274 Dec 25, 2014 INTRAORL-PERIAPICAL 1 FILM 21833 CPT-4 D0220 Dec 25, 2014 Vital Signs Date/Time: Dec 25, 2014 Blood Pressure Diastolic 73 mmHg Blood Pressure Systolic 129 mmHg Results No Known Results Summary Purpose [employer] Submission
--- OUTSIDE RECORDS SUMMARY | 2017-11-02 09:18 | XMS REPORT ---
Author Author ELHAM MARTINO Organization [facility] Address [address] [place] [address] Care Team Providers Care Pasteuriser Operator Name Role Phone ELHAM MARTINO Unavailable PROBLEMS Type Condition ICD9-CM Code WUW76-CP Code Onset Dates Condition Status SNOMED Code Problem Thyroid nodule E04.1 Active 069356887 Problem Postmenopausal bleeding N95.0 Active 26335399 Problem Personal history of pulmonary embolism Z86.711 Active 154338904 Problem Prediabetes R73.03 Active 305078041 Problem Meningioma D32.9 Active 574989771 Problem History of DVT (deep vein thrombosis) Z86.718 Active 177148775 Problem Moderate single current episode of major depressive disorder F32.1 Active 06149581 Problem Pure hypercholesterolemia E78.00 Active 315725075 Problem Scoliosis, unspecified scoliosis type, unspecified spinal region M41.9 Active 545182635 Problem Left leg weakness M62.81 Active 055320764 Problem Other chronic pain G89.29 Active 41945278 Problem Low back pain M54.5 Active 742882493 ALLERGIES Substance Reaction Event Type Date Status Sulfamethoxazole questionable allergy Drug Allergy Apr, Active SOCIAL HISTORY Never Assessed PLAN OF CARE Activity Details Follow Up Next Avail for wellness visit with Selin Reason: VITAL SIGNS Height 61 in 2016-05-06 Weight 178 lbs 2016-05-06 Temperature 98.0 degrees Fahrenheit 2016-05-06 Heart Rate 90 bpm 2016-05-06 Respiratory Rate 20 2016-05-06 BMI 33.63 kg/m2 2016-05-06 Blood pressure systolic 138 mmHg 2016-05-06 Blood pressure diastolic 84 mmHg 2016-05-06 MEDICATIONS Medication Instructions Dosage Frequency Start Date End Date Duration Status Zantac 150 Maximum Strength 150 MG Orally Once a day 1 tablet at bedtime 24h Active Aleve 220 MG Active RESULTS Name Result Date Reference Range Ultrasound : Thyroid 2016-05-16 PROCEDURES No Known procedures IMMUNIZATIONS No Known Immunizations MEDICAL (GENERAL) HISTORY Type Description Date Medical History Thyroid has growth on it. Biospy was done by Dr. 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 Flores, Echo done Medical History partial hearing loss from reaction to antibiotic as child Medical History DVT/PE x2 (approx 1984 & 2014) Medical History hx of basal cell carcinoma to left cheek (2013) Medical History partial tear/rupture to Achilles, left knee pain, treated by Dr. Alvarado, but no surgery, not cleared by cardiology Medical History hx of ovarian cysts Surgical History Biopsy of thyroid 06/2014 Surgical History skin cancer removal cheek 12/2013 Surgical History right knee surgery at age 2 (drained the joint to r/o rheumatic fever) Surgical History Left leg ablasion 08/2015 Hospitalization History hospitalization for febrile illness, r/o rheumatic fever (lost hearing, had to learn to speak and walk again) 1957 Hospitalization History DVT/PE 1984 Hospitalization History DVT/PE 10/2014
--- OUTSIDE RECORDS SUMMARY | 2017-11-02 09:18 | XMS REPORT ---
Author Author ELHAM MARTINO Organization [facility] Address [address] [place] [address] Care Team Providers Care Form Block Maker Name Role Phone ELHAM MARTINO Unavailable PROBLEMS Type Condition ICD9-CM Code [id number] Code Onset Dates Condition Status SNOMED Code Problem Thyroid nodule E04.1 Active 736453503 Problem Postmenopausal bleeding N95.0 Active 14912709 Problem Personal history of pulmonary embolism Z86.711 Active 711353246 Problem Prediabetes R73.03 Active 242009692 Problem Meningioma D32.9 Active 875391522 Problem History of DVT (deep vein thrombosis) Z86.718 Active 382916950 Problem Moderate single current episode of major depressive disorder F32.1 Active 09947477 Problem Pure hypercholesterolemia E78.00 Active 705663221 Problem Scoliosis, unspecified scoliosis type, unspecified spinal region M41.9 Active 528662049 Problem Left leg weakness M62.81 Active 050551920 Problem Other chronic pain G89.29 Active 03287627 Problem Low back pain M54.5 Active 351557115 ALLERGIES No Known Allergies SOCIAL HISTORY No smoking Hx information available PLAN OF CARE VITAL SIGNS MEDICATIONS No Known Medications RESULTS No Results PROCEDURES No Known procedures IMMUNIZATIONS No Known Immunizations
--- OUTSIDE RECORDS SUMMARY | 2017-11-02 09:18 | XMS REPORT ---
Author Author ELHAM MARTINO Organization [facility] Address [address] [place] [address] Care Team Providers Care Mid Level Java Developer Name Role Phone ELHAM MARTINO Unavailable PROBLEMS Type Condition ICD9-CM Code [id number] Code Onset Dates Condition Status SNOMED Code Problem Thyroid nodule E04.1 Active 808442133 Problem Postmenopausal bleeding N95.0 Active 41484967 Problem Personal history of pulmonary embolism Z86.711 Active 187020698 Problem Prediabetes R73.03 Active 233470106 Problem Meningioma D32.9 Active 459864327 Problem History of DVT (deep vein thrombosis) Z86.718 Active 065509630 Problem Moderate single current episode of major depressive disorder F32.1 Active 36032628 Problem Pure hypercholesterolemia E78.00 Active 905407779 Problem Scoliosis, unspecified scoliosis type, unspecified spinal region M41.9 Active 401544227 Problem Left leg weakness M62.81 Active 843866715 Problem Other chronic pain G89.29 Active 36975279 Problem Low back pain M54.5 Active 657717305 ALLERGIES No Information SOCIAL HISTORY Never Assessed PLAN OF CARE VITAL SIGNS MEDICATIONS No [...]
--- OUTSIDE RECORDS SUMMARY | 2017-11-02 09:18 | XMS REPORT | Clinical Summary ---
Author Author User, REBECA Organization [facility]ician [facility] Address Unknown Phone Unavailable Allergies, Adverse Reactions, [...] Loera Routine general medical examination at a [facility] care facility DIZZINESS 780.4 Active Che Loera [...] TABS 1 po daily beginning 11/08/14 RIVAROXABAN 19295216568 Active Che Loera CALMOSEPTINE 0.44-20.625 % OINT Apply to affected areas TID prn MENTHOL-ZINC OXIDE 47137560058 Active Che Loera VALIUM 2 MG TAB 1 PO one hour before MRI and may repeat if needed DIAZEPAM 82393479949 No Longer Active Che Loera AUGMENTIN 875-125 MG TAB 1 PO BID AMOXICILLIN-POT CLAVULANATE 64734199974 No Longer Active Che ROSALES'S NASAL SPRAY (DEXAMETHASONE, GENTAMICIN, SALINE) 2 puffs each nostril TID for [address] ROSALES'S NASAL SPRAY ( DEXAMETHASONE, GENTAMICIN, SALINE) No Longer Active Che Loera ATENOLOL 25 MG TABS 1 po daily ATENOLOL 10851325996 No Longer Active Che Loera MULTIVITAMINS TABS 1 po daily MULTIPLE VITAMIN 38110400215 Active Che Loera Vital Signs Date Name Value Unit Range Description blood pressure, diastolic - 8462-4 95 mm[Hg] BP whatley blood pressure, systolic - 8480-6 150 mm[Hg] BP sys pulse rate E&M - 8867-4 78 /min Heart rate respiratory rate E&M - 9279-1 14 /min Resp rate temperature E&M 98.6 [degF] Body temperature weight E&M - 3141-9 169 [lb_av] Weight Measured blood pressure, diastolic - 8462-4 75 mm[Hg] [...] Description Clinical Lists Update: CBC,CMP,FLP,TSH,HGA1C,ESR - Chemistry Estimated Glomerular Filtration Rate (calc) >60 mL/min/1.73m2 glucose, plasma fasting 101 mg/dL albumin, serum 4.1 g/dL alkaline phosphatase, serum 80 U/L urea nitrogen, blood 20 mg/dL calcium, serum 9.6 mg/dL chloride, serum 110 mmol/L cholesterol, serum 253 mg/dL carbon dioxide, venous blood 20 mmol/L very low density lipoproteins 27 mg/dL sodium, serum 141 mmol/L triglyceride, serum, fasting 135 mg/dL bilirubin, serum, total 0.4 mg/dL alanine aminotransferase (SGPT), serum 19 U/L aspartate aminotransferase (SGOT), serum 20 U/L protein, total, serum 6.9 g/dL potassium, serum 4.5 mmol/L LDL cholesterol, serum 175 mg/dL thyroid stimulating hormone, serum 2.06 u[iU]/mL hemoglobin A1C, blood, as % of total hemoglobin 5.7 % HDL cholesterol, serum 62 mg/dL creatinine, serum 0.88 mg/dL Clinical Lists Update: CBC,CMP,FLP,TSH,HGA1C,ESR - Hematology red blood cell distribution width 12.1 % hematocrit, blood 42 % hemoglobin, blood 14.6 g/dL platelet count 332 10*3/mm3 erythrocyte (RBC) count 4.53 10*6/mm3 leukocyte count, blood 8.0 10*3/mm3 mean corpuscular volume, RBC 94 fL erythrocyte sedimentation rate 15 mm/h Clinical Lists Update: ER LABS - Chemistry carbon dioxide, venous blood 27 mmol/L glucose, plasma fasting 169 mg/dL Estimated Glomerular Filtration Rate (calc) 52 mL/min/1.73m2 albumin, serum 4.5 g/dL alkaline phosphatase, serum 82 U/L urea nitrogen, blood 11 mg/dL calcium, serum 9.9 mg/dL chloride, serum 105 mmol/L sodium, serum 139 mmol/L creatinine, serum 1.08 mg/dL potassium, serum 4.3 mmol/L protein, total, serum 7.3 g/dL aspartate aminotransferase (SGOT), serum 18 U/L alanine aminotransferase (SGPT), serum 20 U/L bilirubin, serum, total 0.6 mg/dL Clinical Lists Update: ER LABS - Coagulation international normalized ratio (INR) 1.0 PTT patient 26 s prothrombin time (patient) 13.1 s Clinical Lists Update: ER LABS - Hematology hemoglobin, blood 15.3 g/dL hematocrit, blood 46 % platelet count 311 10*3/mm3 erythrocyte (RBC) count 4.88 10*6/mm3 leukocyte count, blood 10.2 10*3/mm3 mean corpuscular volume, RBC 93 fL red blood cell distribution width 12.2 % Clinical Lists Update: ER LABS 10-19-14 - Chemistry potassium, serum 4.3 mmol/L albumin, serum 4.0 g/dL aspartate aminotransferase (SGOT), serum 17 U/L alanine aminotransferase (SGPT), serum 18 U/L bilirubin, serum, total 0.6 mg/dL protein, total, serum 6.4 g/dL alkaline phosphatase, serum 77 U/L urea nitrogen, blood 8 mg/dL calcium, serum 9.5 mg/dL chloride, serum 107 mmol/L carbon dioxide, venous blood 25 mmol/L creatinine, serum 0.8 mg/dL Estimated Glomerular Filtration Rate (calc) >60 mL/min/1.73m2 glucose, plasma fasting 108 mg/dL sodium, serum 139 mmol/L Clinical Lists Update: ER LABS 10-19-14 - Coagulation PTT patient 26 s prothrombin time (patient) 13.1 s international normalized ratio (INR) 1.0 Clinical Lists Update: ER LABS 10-19-14 - Hematology red blood cell distribution width 12.3 % hemoglobin, blood 14.9 g/dL platelet count 293 10*3/mm3 mean corpuscular volume, RBC 93 fL leukocyte count, blood 12.0 10*3/mm3 erythrocyte (RBC) count 4.75 10*6/mm3 hematocrit, blood 44 % Clinical Lists Update: ER LABS 10-19-14 - Urinalysis glucose, urine, semiquantitative neg protein, urine, semiquantitative (dipstick) 2+ blood in urine (hemoglobin) by dipstick 1+ mucus on urinalysis small epithelial cells, urine 0-2 /[LPF] hyaline casts, urine none /[LPF] bacteria, urine microscopy few RBC urine by microscopy 0-2 WBC urine on microscopy 5-10 {Cells}/[HPF] appearance, urine Cloudy Yellow urobilinogen, urine, semiquantitative (dipstick) normal specific gravity, urine 1.020 pH, urine, semiquantitative 5 nitrite, urine, semiquantitative neg ketones, urine, by test strip 1+ bilirubin, urine neg Clinical Lists Update: ER LABS 10-18-14 - Chemistry Estimated Glomerular Filtration Rate (calc) 52 mL/min/1.73m2 glucose, plasma fasting 169 mg/dL sodium, serum 139 mmol/L bilirubin, serum, total 0.6 mg/dL alanine aminotransferase (SGPT), serum 20 U/L aspartate aminotransferase (SGOT), serum 18 U/L protein, total, serum 7.3 g/dL potassium, serum 4.3 mmol/L creatinine, serum 1.08 mg/dL carbon dioxide, venous blood 27 mmol/L chloride, serum 105 mmol/L calcium, serum 9.9 mg/dL urea nitrogen, blood 11 mg/dL alkaline phosphatase, serum 82 U/L albumin, serum 4.5 g/dL Clinical Lists Update: ER LABS 10-18-14 - Coagulation prothrombin time (patient) 13.1 s PTT patient 26 s international normalized ratio (INR) 1.0 Clinical Lists Update: ER LABS 10-18-14 - Hematology hemoglobin, blood 15.3 g/dL hematocrit, blood 46 % platelet count 311 10*3/mm3 erythrocyte (RBC) count 4.88 10*6/mm3 leukocyte count, blood 10.2 10*3/mm3 mean corpuscular volume, RBC 93 fL red blood cell distribution width 12.2 % Clinical Lists Update: ER LABS 11-14-14 - Chemistry bilirubin, serum, total 0.4 mg/dL sodium, serum 138 mmol/L aspartate aminotransferase (SGOT), serum 20 U/L protein, total, serum 6.7 g/dL alkaline phosphatase, serum 73 U/L albumin, serum 4.2 g/dL anion gap, serum 9 glucose, plasma fasting 110 mg/dL Estimated Glomerular Filtration Rate (calc) 56 mL/min/1.73m2 alanine aminotransferase (SGPT), serum 18 U/L potassium, serum 4.3 mmol/L creatinine, serum 1.01 mg/dL carbon dioxide, venous blood 24 mmol/L chloride, serum 105 mmol/L calcium, serum 9.6 mg/dL urea nitrogen, blood 18 mg/dL Clinical Lists Update: ER LABS 11-14-14 - Hematology hematocrit, blood 42 % hemoglobin, blood 14.2 g/dL platelet count 358 10*3/mm3 erythrocyte (RBC) count 4.52 10*6/mm3 leukocyte count, blood 9.9 10*3/mm3 mean corpuscular volume, RBC 93 fL red blood cell distribution width 12.0 % Encounters Code Encounter Date Provider Facility CPT-76168 Ofc Vst, Est Level IV 12:54:43 CDT Che Loera, DO, FACP CPT-08038 Ofc Vst, Est Level IV 21:36:45 CDT Che Marina Loera, DO, FACP CPT-40352 Ofc Vst, Est Level IV 11:23:40 CDT Che Loera, DO, FACP CPT-86464 Ofc Vst, Est Level IV 17:08:05 COMPILATION CLERK Che Loera, DO, FACP CPT-14601 Ofc Vst, Est Level IV 12:58:01 COMPILATION CLERK Che Loera, DO, FACP CPT-38018 Ofc Vst, Est Level IV 17:05:52 COMPILATION CLERK Che Loera, DO, FACP CPT-60745 Ofc Vst, Est Level III 12:04:27 COMPILATION CLERK Che Loera, DO, FACP CPT-70498 Ofc Vst, Est Level III 08:05:55 COMPILATION CLERK Che Loera, DO, FACP CPT-07745 Ofc Vst, New Level III 15:16:23 CDT Che Loera, DO, FACP CPT-51986 Ofc Vst, Est Level III 10:03:49 CDT Che Loera [facility] CPT-18562 Ofc Vst, New Level III 09:46:58 CDT Che Loera [facility] Procedures Code Procedure Name Date Entry Date Standard Description CPT-84651 Preventive, Est, (40-64) 12:36:52 CDT
--- OUTSIDE RECORDS SUMMARY | 2017-11-02 09:19 | XMS REPORT ---
Author Author ODETTE MICHEL [facility] eClinicalWorks Address Unknown Phone Unavailable Care Team Providers Care Awning Hanger Helper Name Role Phone ODETTE MICHEL CP Unavailable Allergies, Adverse Reactions, Alerts Substance Reaction Event Type Sulfamethoxazole questionable allergy Drug Allergy Problems Problem Type Condition ICD-9 Code Onset Dates Condition Status Problem Meningioma 225.2 Active Problem Thyroid nodule 241.0 Active Problem Venous thromboembolism (VTE) 453.9 Active Assessment Thyroid nodule 241.0 Active Assessment Venous thromboembolism (VTE) 453.9 Active Assessment Meningioma 225.2 Active Medications Medication Code System Code Instructions Start Date End Date Status Dosage Xarelto [facility] [address]-01 20 MG Orally Once a day November 08, 2014 1 tablet with food Procedures Procedure Coding System Code Date Office Visit, Est Pt., Level 4 CPT-4 34881 Dec 06, 2014 Vital Signs Date/Time: Dec 06, 2014 Temperature 98.3 F Weight 170.4 lbs Height 61 in BMI 32.19 Index Blood Pressure Diastolic 82 mmHg Blood Pressure Systolic 136 mmHg Cardiac Monitoring Heart Rate 88 bpm Results No Known Results Summary Purpose eClinicalWorks Submission
--- OUTSIDE RECORDS SUMMARY | 2017-11-02 09:19 | XMS REPORT ---
Author Author ELHAM MARTINO Organization [facility] Address [address] [place] [address] Care Team Providers Care Progressive Care Unit Registered Nurse Name Role Phone ELHAM MARTINO Unavailable PROBLEMS Type Condition ICD9-CM Code LEG96-ED Code Onset Dates Condition Status SNOMED Code Problem Postmenopausal bleeding N95.0 Active 86237490 Problem Scoliosis, unspecified scoliosis type, unspecified spinal region M41.9 Active 049797582 Problem Left leg weakness M62.81 Active 131102559 Problem Major depressive disorder, single episode, mild F32.0 Active 43825843 Problem Reflux esophagitis K21.0 Active 113093220 Problem Other chronic pain G89.29 Active 38126750 Problem Low back pain M54.5 Active 580343310 Problem Dysphagia, unspecified type R13.10 Active 40380139 Problem Pure hypercholesterolemia E78.00 Active 108493391 Problem Meningioma D32.9 Active 558771725 Problem History of DVT (deep vein thrombosis) Z86.718 Active 812450124 Problem Thyroid nodule E04.1 Active 943026076 Problem Prediabetes R73.03 Active 079516251 Problem Personal history of pulmonary embolism Z86.711 Active 706083527 ALLERGIES No Information ENCOUNTERS Encounter Location Date Diagnosis [facility] [id number] [place] [address]44- [address]293 Sep, [facility] [id number] [place] [address]444- [address]17 Sep, [facility] [id number] [place] [address]60 [address] August, Insect bite (nonvenomous), right lower leg, initial encounter S80.861A and Bitten or stung by nonvenomous insect and other nonvenomous arthropods, initial encounter W57.XXXA [place] [id number] [place] [address] 90531- 7976 August, Thyroid nodule E04.1 ; Prediabetes R73.03 ; Pure hypercholesterolemia E78.00 ; Low back pain M54.5 and Need for hepatitis C screening test Z11.59 [address] [place] [id number] [place] [address] 40608- 1458 04 Apr, 2017 Screening for breast cancer Z12.[address] [address] 29 Mar, 2017 Well woman exam (no gynecological exam) Z00.00 ; Pure hypercholesterolemia E78.00 ; Prediabetes R73.03 ; Acute bronchitis, unspecified organism J20.9 ; Thyroid nodule E04.1 ; Encounter for screening for lung cancer Z12.2 and Encounter for screening for malignant neoplasm of colon Z12.11 [address] [place] [id number] [place] [address] 12312- 9352 Mar, [place] [id number] [place] [address] 62474- 4992 15 Feb, 2017 Moderate single current episode of major depressive disorder F32.1 ; Major depressive disorder, single episode, mild F32.0 and Other chronic pain G89.29 [address] [place] [id number] [place] [address] 91929- 0046 13 Feb, 2017 Reflux esophagitis K21.0 ; Dysphagia, unspecified type R13.10 ; Bereavement Z63.4 ; Low back pain M54.5 and Other chronic pain G89.29 [address] [place] [id number] [place] [address] 27313- 3834 13 May, 2016 Fever, unspecified fever cause R50.9 and Sinus pressure J34.89 [address] [place] [id number] [place] [address] 58701- 4671 07 May, 2016 Thyroid nodule E04.1 [place] [id number] [place] [address] 17638- 8367 06 May, 2016 [place] [id number] [place] [address] 53993- 7421 Apr, Dizziness R42 ; Thyroid nodule E04.1 and History of DVT ( deep vein thrombosis) Z86.718 [facility] [id number] [place] [address] 81924- 6508 Apr, [place] [id number] [place] [address] 89519- 0879 Mar, Other chronic pain G89.29 and Moderate single current episode of major depressive disorder F32.1 [place] [id number] [place] [address] 12247- 5902 Mar, [place] [id number] [place] [address] 78204- 6994 Mar, [place] [id number] [place] [address] 69681- 0247 Mar, Pain of left calf M79.662 and Swelling of left lower extremity M79.89 [place] [id number] [place] [address] 29960- 7714 Feb, Low back pain M54.5 [place] [id number] [place] [address] 69965- 4810 Feb, Pure hypercholesterolemia E78.00 [place] [id number] [place] [address] 24789- 3541 Feb, Low back pain M54.5 ; Other chronic pain G89.29 and Pure hypercholesterolemia E78.00 [place] [address] [place] [address] 20424- 7143 August, Left leg weakness M62.81 and Scoliosis, unspecified scoliosis type, unspecified spinal region M41.9 [place] [id number] [place] [address] 92150- 8324 August, Left leg weakness M62.81 and Scoliosis of thoracic spine, unspecified scoliosis type M41.9 [place] [address] [address] August, [facility] [id number] [place] [address] 76997- 6594 17 May, 2015 [facility] [id number] [id number] 29 Apr, 2015 Dental examination Z01.20 [place] [id number] [place] [address] 64364- 8363 14 Apr, 2015 [place] [id number] [place] [address] 18022- 0368 07 Apr, 2015 DVT (deep venous thrombosis), left I82.402 ; Pain in right knee M25.561 ; Pain in left knee M25.562 ; Meningioma D32.9 and Family history of coronary artery disease Z82.49 [place] [id number] [place] [address] 47278- 6573 Mar, Well woman exam Z01.419 [place] [id number] [place] [address] 28470- 2722 Mar, [place] [id number] [place] [address] 71979- 5622 Feb, [place] [address] [place] [address] 89538- 6739 Feb, Well woman exam Z01.419 ; Encounter for screening for malignant neoplasm of cervix Z12.4 ; BMI 32.0-32.9,adult Z68.32 ; Personal history of pulmonary embolism Z86.711 ; History of blood clots Z86.718 ; History of thyroid nodule Z86.39 ; Postmenopausal bleeding N95.0 ; Right lower quadrant pain R10.31 ; Friable cervix N88.8 ; Dense breast tissue R92.2 ; Depressed mood F32.9 and Abdominal cramping R10.9 [place] [address] [place] [address] 45407- 3045 Feb, [place] [id number] [place] [address] 77988- 2529 Feb, [facility] [address] 8[address]- 8363 Jan, DVT (deep venous thrombosis), unspecified laterality I82.409 and Chest pain, unspecified chest pain type R07.9 [facility] [address] 95[address]- 0696 Jan, Insect bite W57.XXXA and DVT (deep venous thrombosis), left I82.402 [facility] [address] [id number] Jan, Dental examination Z01.20 [place] [address] 06462- 8773 Jan, Infected tooth K04.7 [facility] [address] 5[address]- 4663 Dec, [facility] [address] [id number] Dec, Dental examination V72.2 [facility] [address] 94480- 8382 Dec, Candidal skin infection 112.3 [facility] [address] 74160- 3511 Dec, Hyperlipidemia 272.4 [facility] [address] 38535- 8700 Nov, Venous thromboembolism (VTE) 453.9 ; Meningioma 225.2 and Thyroid nodule 241.0 [facility] [address] 47546- 6815 Oct, [facility] [address] 55603- 2206 Oct, [facility] [address] 58048- 5802 Sep, 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 [facility] [address] [address] 18 Sep, 2014 Upper back pain 724.5 and Chronic cough 786.2 [facility] [address] [id number] August, Conjunctivitis 372.30 [facility] [address] [address]- 3[address] Jul, [facility] [address] [address]- 8897 Jul, [facility] [id number] [place] [address] 20880- 7685 Jan, [facility] [id number] [place] [address] 11044- 2956 Jan, [facility] [id number] [place] [address] 47178- 9556 Jan, [facility] [address] [address]- 2786 Jan, [facility] [id number] [place] [address] 29052- 5377 Jan, [facility] [address] [address]- 4486 Jan, [facility] [address] [address]- 5[address] Mar, [facility] [address] [address]- [address] Mar, IMMUNIZATIONS No Known Immunizations SOCIAL HISTORY Never Assessed REASON FOR VISIT Mammogram order PLAN OF CARE VITAL SIGNS MEDICATIONS Unknown Medications RESULTS No Results PROCEDURES No Known procedures INSTRUCTIONS MEDICATIONS ADMINISTERED No Known Medications MEDICAL (GENERAL) HISTORY Type Description Date Medical [...]
--- OUTSIDE RECORDS SUMMARY | 2017-11-02 09:19 | XMS REPORT ---
Author Author TREY Muniz Organization [facility] Address [address] [place] [address] Care Team Providers Care Fire Control Technician B Name Role Phone TREY Muniz Unavailable PROBLEMS Type Condition ICD9-CM Code [id number] Code Onset Dates Condition Status SNOMED Code Problem Postmenopausal bleeding N95.0 Active 30919184 Problem Scoliosis, unspecified scoliosis type, unspecified spinal region M41.9 Active 912339549 Problem Left leg weakness M62.81 Active 602332833 Problem Major depressive disorder, single episode, mild F32.0 Active 34781515 Problem Reflux esophagitis K21.0 Active 488970682 Problem Other chronic pain G89.29 Active 96278407 Problem Low back pain M54.5 Active 043567180 Problem Dysphagia, unspecified type R13.10 Active 12384571 Problem Pure hypercholesterolemia E78.00 Active 511225208 Problem Meningioma D32.9 Active 167050674 Problem History of DVT (deep vein thrombosis) Z86.718 Active 962003711 Problem Thyroid nodule E04.1 Active 466869395 Problem Prediabetes R73.03 Active 272957896 Problem Personal history of pulmonary embolism Z86.711 Active 045099094 ALLERGIES Substance Reaction Event Type Date Status Sulfamethoxazole questionable allergy Drug Allergy Mar, Active ENCOUNTERS Encounter Location Date Diagnosis [facility] [address] [facility] [id number] [address] Sep, [facility] [id number] [place] [address] Sep, [facility] [id number] [address] August, Insect bite (nonvenomous), right lower leg, initial encounter S80.861A and Bitten or stung by nonvenomous insect and other nonvenomous arthropods, initial encounter W57.XXXA [place] [id number] [place] [address] 16135- [address] August, Thyroid nodule E04.1 ; Prediabetes R73.03 ; Pure hypercholesterolemia E78.00 ; Low back pain M54.5 and Need for hepatitis C screening test Z11.[address] [address]- [address] 04 Apr, 2017 Screening for breast cancer Z12.[address] [address]- [address] Mar, Well woman exam (no gynecological exam) Z00.00 ; Pure hypercholesterolemia E78.00 ; Prediabetes R73.03 ; Acute bronchitis, unspecified organism J20.9 ; Thyroid nodule E04.1 ; Encounter for screening for lung cancer Z12.2 and Encounter for screening for malignant neoplasm of colon Z12.11 [place] [id number] [place] [address]240- [address] Mar, [address] [address]- [address] 15 Feb, 2017 Moderate single current episode of major depressive disorder F32.1 ; Major depressive disorder, single episode, mild F32.0 and Other chronic pain G89.29 [place] [id number] [place] [address] 02582- 1660 Feb, Reflux esophagitis K21.0 ; Dysphagia, unspecified type R13.10 ; Bereavement Z63.4 ; Low back pain M54.5 and Other chronic pain G89.29 [place] [id number] [place] [address] 54673- 1639 13 May, 2016 Fever, unspecified fever cause R50.9 and Sinus pressure J34.89 [place] [id number] [place] [address] 32039- 1140 07 May, 2016 Thyroid nodule E04.1 [address] [address] May, [place] [address] [address] Apr, Dizziness R42 ; Thyroid nodule E04.1 and History of DVT ( deep vein thrombosis) Z86.718 [place] [address] 6[address]- 2631 Apr, [place] [address] 8[address]- 2449 Mar, Other chronic pain G89.29 and Moderate single current episode of major depressive disorder F32.[address] [address]- [address] Mar, [place] [address] 6[address]- 5632 Mar, [address] [address]- [address] Mar, Pain of left calf M79.662 and Swelling of left lower extremity M79.[address] 89[address]- 8951 Feb, Low back pain M54.[address] 7[address]39- 5971 Feb, Pure hypercholesterolemia E78.00 [place] [address] 28[address]- 9109 Feb, Low back pain M54.5 ; Other chronic pain G89.29 and Pure hypercholesterolemia E78.00 [place] [address] [address] August, Left leg weakness M62.81 and Scoliosis, unspecified scoliosis type, unspecified spinal region M41.[address] [address]- [address] August, Left leg weakness M62.81 and Scoliosis of thoracic spine, unspecified scoliosis type M41.9 [place] [id number] [place] [address] 68630- 9426 August, [place] [id number] [place] [address] 67046- 3495 May, [facility] [address] [place] [id number] Apr, Dental examination Z01.20 [place] [address] 61492- 56[address] Apr, [place] [address] 94[address]- 5399 Apr, DVT (deep venous thrombosis), left I82.402 ; Pain in right knee M25.561 ; Pain in left knee M25.562 ; Meningioma D32.9 and Family history of coronary artery disease Z82.49 [place] [address] [address]- 98[address] Mar, Well woman exam Z01.419 [place] [address] 0[address]24- 9675 Mar, [place] [address] 40[address]- 6[address] 24 Feb, 2015 [place] [address] 65061- 6880 Feb, Well woman exam Z01.419 ; Encounter [...] Depressed mood F32.9 and Abdominal cramping R10.9 [place] [address] 80393573- 97[address] Feb, [facility] [id number] [place] [address] 38679- 5133 Feb, [facility] [id number] [place] [address] 761812- 7946 Jan, DVT (deep venous thrombosis), unspecified laterality I82.409 and Chest pain, unspecified chest pain type R07.9 [facility] [id number] [place] [address] 78462- 4631 Jan, Insect bite W57.XXXA and DVT (deep venous thrombosis), left I82.402 [facility] [address] [id number] Jan, Dental examination Z01.20 [place] [id number] [place] [address] 26563- 8457 Jan, Infected tooth K04.7 [facility] [id number] [place] [address] 23268- 6821 Dec, [facility] [id number] [place] [id number] Dec, Dental examination V72.2 [facility] [id number] [place] [address] 13015- 5477 Dec, Candidal skin infection 112.3 [place] [id number] [place] [address] 78520- 0583 Dec, Hyperlipidemia 272.4 [facility] [id number] [place] [address] 03908- 7[address] Nov, Venous thromboembolism (VTE) 453.9 ; Meningioma 225.2 and Thyroid nodule 241.0 [facility] [id number] [place] [address] 53714- 3936 Oct, [facility] [id number] [place] [address] 71339824- 4983 Oct, [facility] [address] [place] [address] Sep, 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 [facility] [id number] [place] [address] 19768- 6474 Sep, Upper back pain 724.[address] [facility] [address] [id number] August, Conjunctivitis 372.30 [facility] [id number] [place] [address] 69946- 9500 Jul, [facility] [id number] [place] [address] 81253- 2220 Jul, [facility] [id number] [address] Jan, [facility] [address] [address] Jan, [facility] [address] [address] Jan, [facility] [address] [address] Jan, [facility] [address] [address] Jan, [facility] [address] [address] Jan, [facility] [address] [address] Mar, [facility] [address] [address] Mar, IMMUNIZATIONS No Known Immunizations SOCIAL HISTORY Never Assessed REASON FOR VISIT Breast exam- would like mammogram Chace REYNOSO, has had a cough and been on antibiotics for x 6 days and last dose was this morning but does not feel like she has fully gotten better- would like to know if she can extend the antibiotics for another few days PLAN OF CARE Activity Details Follow Up as discussed for CHM Reason: VITAL SIGNS Height 61 in 2017-04-10 Weight 171.8 lbs 2017-04-10 Temperature 97.8 degrees Fahrenheit 2017-04-10 Heart Rate 80 bpm 2017-04-10 Respiratory Rate 20 2017-04-10 BMI 32.46 kg/m2 2017-04-10 Blood pressure systolic 132 mmHg 2017-04-10 Blood pressure diastolic 90 mmHg 2017-04-10 MEDICATIONS Medication Instructions Dosage Frequency Start Date End Date Duration Status Aleve 220 MG Not-Taking Zantac 150 Maximum Strength 150 MG Orally Once a day 1 tablet at bedtime 24h Active Cefdinir 300 MG Orally every 12 hrs 1 capsule 12h Mar, Apr, 03 days Active Tums 500 MG Orally Once a day 1 tablet 24h Not-Taking Omeprazole 20 mg Orally Once a day 1 capsule 24h Feb, 30 day(s ) Not-Taking Cymbalta 30 MG Orally Twice a day 1 capsule 12h Mar, 30 day(s) Not-Taking Atorvastatin Calcium 20 MG Orally Once a day 1 tablet 24h Mar, Not-Taking RESULTS Name Result Date Reference Range A1C (IN HOUSE) 2017-04-10 A1C IN HOUSE 5.6 4.3 - 5.6 % Previous A1c Lot [id number] Exp date 06/2018 CT Scan : Chest, low dose (Screening) 2017-05-05 PROCEDURES Procedure Date Ordered Result Body Site GLYCATED HEMOGLOBIN TEST Apr 10, 2017 INSTRUCTIONS MEDICATIONS ADMINISTERED No Known Medications MEDICAL [...]
--- OUTSIDE RECORDS SUMMARY | 2017-11-02 09:19 | XMS REPORT ---
Author Author SHERRY APODACA [facility] [place] eClinicalWorks Address Unknown Phone Unavailable Care Team Providers Care Automation Specialist Name Role Phone SHERRY APODACA CP Unavailable Allergies, Adverse Reactions, Alerts Substance Reaction Event Type Sulfamethoxazole questionable allergy Drug Allergy Problems Problem Type Condition Code Onset Dates Condition Status Problem Meningioma D32.9 Active Problem Thyroid nodule E04.1 Active Problem DVT (deep venous thrombosis), unspecified laterality I82.409 Active Assessment DVT (deep venous thrombosis), left I82.402 Active Problem Pure hypercholesterolemia E78.0 Active Assessment Insect bite W57.XXXA Active Medications Medication Code System Code Instructions Start Date End Date Status Dosage Keflex [facility] [address]-58 250 MG Orally Four times a day Feb 06, 2015 1 capsule Xarelto [facility] [address]-51 20 MG Orally Once a day November 08, 2014 1 tablet with food Procedures Procedure Coding System Code Date Office Visit, Est Pt., Level 3 CPT-4 69518 Feb 01, 2015 Vital Signs Date/Time: Feb 01, 2015 Temperature 98.0 F Weight 170 lbs Height 61 in BMI 32.12 Index Blood Pressure Diastolic 80 mmHg Blood Pressure Systolic 130 mmHg Cardiac Monitoring Heart Rate 70 bpm Results No Known Results Summary Purpose eClinicalWorks Submission
--- OUTSIDE RECORDS SUMMARY | 2017-11-02 09:19 | XMS REPORT ---
Author Author RAUDEL DIXON Organization [facility] Address [address] [place] [address] Care Team Providers Care Steamboat Captain Name Role Phone RAUDEL DIXON Unavailable PROBLEMS Type Condition ICD9-CM Code CVE16-YR Code Onset Dates Condition Status SNOMED Code Problem Postmenopausal bleeding N95.0 Active 69652061 Problem Scoliosis, unspecified scoliosis type, unspecified spinal region M41.9 Active 007416765 Problem Left leg weakness M62.81 Active 622403399 Problem Major depressive disorder, single episode, mild F32.0 Active 02225701 Problem Reflux esophagitis K21.0 Active 993678098 Problem Other chronic pain G89.29 Active 70686781 Problem Low back pain M54.5 Active 052653642 Problem Dysphagia, unspecified type R13.10 Active 72864114 Problem Pure hypercholesterolemia E78.00 Active 234022126 Problem Meningioma D32.9 Active 708247740 Problem History of DVT (deep vein thrombosis) Z86.718 Active 712102750 Problem Thyroid nodule E04.1 Active 855785689 Problem Prediabetes R73.03 Active 775903298 Problem Personal history of pulmonary embolism Z86.711 Active 839923806 ALLERGIES No Information ENCOUNTERS Encounter Location Date Diagnosis [place] [id number] [place] [address] August, Thyroid nodule E04.1 ; Prediabetes R73.03 ; Pure hypercholesterolemia E78.00 ; Low back pain M54.5 and Need for hepatitis C screening test Z11.59 [place] [id number] [place] [address]33- 0657 Apr, Screening for breast cancer Z12.31 [place] [address] [place] [id number] [place] [address] 06412- 3593 29 Dec, 2017 Well woman exam (no gynecological exam) Z00.00 ; Pure hypercholesterolemia E78.00 ; Prediabetes R73.03 ; Acute bronchitis, unspecified organism J20.9 ; Thyroid nodule E04.1 ; Encounter for screening for lung cancer Z12.2 and Encounter for screening for malignant neoplasm of colon Z12.[address] 6[address]- 8695 28 Mar, [address] [address]- 9621 15 Feb, 2017 Moderate single current episode of major depressive disorder F32.1 ; Major depressive disorder, single episode, mild F32.0 and Other chronic pain G89.[address] [address]- 3347 13 Feb, 2017 Reflux esophagitis K21.0 ; Dysphagia, unspecified type R13.10 ; Bereavement Z63.4 ; Low back pain M54.5 and Other chronic pain G89.[address] 69605- 8077 13 May, 2016 Fever, unspecified fever cause R50.9 and Sinus pressure J34.[address] 93321- 6327 07 May, 2016 Thyroid nodule E04.[address] 55013- 8643 06 May, [address] 57522- 1103 Apr, Dizziness R42 ; Thyroid nodule E04.1 and History of DVT ( deep vein thrombosis) Z86.[address] 86380- 9878 09 Apr, [address] 14012- 5405 13 Mar, 2016 Other chronic pain G89.29 and Moderate single current episode of major depressive disorder F32.1 [facility] [address] [place] [address] 66756- 5604 Mar, [facility] [id number] [place] [address] 61962- 0944 Mar, [facility] [id number] [place] [address] 84094- 8753 Mar, Pain of left calf M79.662 and Swelling of left lower extremity M79.89 [facility] [id number] [place] [address] 18961- 0384 Feb, Low back pain M54.5 [place] [id number] [place] [address] 22960- 7211 Feb, Pure hypercholesterolemia E78.00 [place] [id number] [place] [address] 97640- 3436 Feb, Low back pain M54.5 ; Other chronic pain G89.29 and Pure hypercholesterolemia E78.00 [facility] [id number] [place] [address] 23097- 3034 August, Left leg weakness M62.81 and Scoliosis, unspecified scoliosis type, unspecified spinal region M41.9 [place] [id number] [place] [address] 61272- 5243 August, Left leg weakness M62.81 and Scoliosis of thoracic spine, unspecified scoliosis type M41.9 [place] [address] [place] [address] 50860- 9408 August, [facility] [id number] [place] [address] 86029- 3576 May, [facility] [id number] [place] [address] [id number] Apr, Dental examination Z01.20 [facility] [id number] [place] [address] 55326- 7040 Apr, [facility] [id number] [place] [address] 29375- 6912 Apr, DVT (deep venous thrombosis), left I82.402 ; Pain in right knee M25.561 ; Pain in left knee M25.562 ; Meningioma D32.9 and Family history of coronary artery disease Z82.49 [facility] [id number] [place] [address] 95231- 7367 Mar, Well woman exam Z01.419 [place] [address] 92525- 1540 Mar, [facility] [address] [address]164- 7968 Feb, [place] [address] 82728- 0093 Feb, Well woman exam Z01.419 ; Encounter [...] Depressed mood F32.9 and Abdominal cramping R10.9 [facility] [id number] [place] [address] 33789- 4279 Feb, [place] [address] 14928- 2579 Feb, [place] [address] 56735- 0231 Jan, DVT (deep venous thrombosis), unspecified laterality I82.409 and Chest pain, unspecified chest pain type R07.9 [place] [id number] [place] [address] 24265- 0579 Jan, Insect bite W57.XXXA and DVT (deep venous thrombosis), left I82.402 [facility] [address] [place] [address] [id number] Jan, Dental examination Z01.20 [facility] [address] 56941- 6501 Jan, Infected tooth K04.7 [facility] [id number] [place] [address] 19969- 0583 23 Dec, 2014 [facility] [address] [id number] 14 Dec, 2014 Dental examination V72.2 [facility] [address] 160717- 3794 04 Dec, 2014 Candidal skin infection 112.3 [place] [address] 38124539- 2665 03 Dec, 2014 Hyperlipidemia 272.4 [facility] [address] 77626- 1021 Nov, Venous thromboembolism (VTE) 453.9 ; Meningioma 225.2 and Thyroid nodule 241.0 [facility] [id number] [place] [address] 83134- 6843 Oct, [facility] [address] 02330- 0914 Oct, [facility] [id number] [place] [address] 44624- 6514 Sep, 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 [facility] [address] 97346- 7879 Sep, Upper back pain 724.5 and Chronic cough 786.2 [facility] [address] [id number] August, Conjunctivitis 372.30 [facility] [address] 34825519- 0521 14 Jul, 2014 [facility] [address] [id number]- 0418 Jul, [facility] [id number] [address]- 6[address] Jan, [facility] [address] [address]- 2546 Jan, [facility] [address] [address]- 2546 Jan, [facility] [id number] [address]- 2546 Jan, [facility] [address] [address]- 2546 Jan, [facility] [address] [address]- 2546 Jan, [facility] [address] [address]- 2546 Mar, [facility] [address] [address]- 2546 Mar, IMMUNIZATIONS No Known Immunizations SOCIAL HISTORY Never Assessed REASON FOR VISIT intake PLAN OF CARE Activity Details Follow Up 2 Weeks, 1 hour Reason: VITAL SIGNS MEDICATIONS Medication Instructions Dosage Frequency Start Date End Date Duration Status Tums 500 MG Orally Once a day 1 tablet 24h Active Omeprazole 20 mg Orally Once a day 1 capsule 24h Feb, 30 day(s ) Active RESULTS No Results PROCEDURES Procedure Date Ordered Result Body Site Psych diagnostic evaluation, established patient Feb 25, 2017 INSTRUCTIONS MEDICATIONS ADMINISTERED No Known Medications [...]
--- OUTSIDE RECORDS SUMMARY | 2017-11-02 09:19 | XMS REPORT ---
Author Author ODETTE MICHEL Organization [facility] Address [address] [place] [address] Care Team Providers Care Batch Freezer Name Role Phone ODETTE MICHEL Unavailable PROBLEMS Type Condition ICD9-CM Code XYH90-IN Code Onset Dates Condition Status SNOMED Code Problem History of DVT (deep vein thrombosis) Z86.718 Active 091647471 Problem Personal history of pulmonary embolism Z86.711 Active 154034851 Problem Postmenopausal bleeding N95.0 Active 92266871 Assessment Pure hypercholesterolemia E78.00 Feb, Active 380246194 Problem Prediabetes R73.03 Active 732304025 Problem Thyroid nodule E04.1 Active 005798929 Problem Meningioma D32.9 Active 732564912 Problem Moderate single current episode of major depressive disorder F32.1 Active 64951800 Problem Other chronic pain G89.29 Active 71297553 Problem Left leg weakness M62.81 Active 365969891 Problem Scoliosis, unspecified scoliosis type, unspecified spinal region M41.9 Active 292683078 Problem Low back pain M54.5 Active 441239327 Problem Pure hypercholesterolemia E78.00 Active 756747029 ALLERGIES Unknown Allergies SOCIAL HISTORY No smoking Hx information available PLAN OF CARE VITAL SIGNS MEDICATIONS Unknown Medications RESULTS No Results PROCEDURES Procedure Date Ordered Related Diagnosis Body Site COMPLETE CBC W/AUTO DIFF WBC Mar 12, 2016 LIPID PANEL Mar 12, 2016 VENIPUNCT, ROUTINE* Mar 12, 2016 COMPREHEN METABOLIC PANEL Mar 12, 2016 IMMUNIZATIONS No Known Immunizations
--- OUTSIDE RECORDS SUMMARY | 2017-11-02 09:19 | XMS REPORT ---
Author Author YANCY DEAL [facility] Address [address] [place] [address] Care Team Providers Care Element Winding Machine Tender Name Role Phone YANCY DEAL Unavailable PROBLEMS Type Condition ICD9-CM Code GRO72-ZF Code Onset Dates Condition Status SNOMED Code Problem History of DVT (deep vein thrombosis) Z86.718 Active 144382681 Problem Personal history of pulmonary embolism Z86.711 Active 371197215 Problem Postmenopausal bleeding N95.0 Active 38222635 Assessment Low back pain M54.5 Feb, Active 021164537 Problem Prediabetes R73.03 Active 168252168 Problem Thyroid nodule E04.1 Active 761005093 Problem Meningioma D32.9 Active 573733555 Problem Moderate single current episode of major depressive disorder F32.1 Active 24276022 Problem Other chronic pain G89.29 Active 28061937 Problem Left leg weakness M62.81 Active 959760773 Problem Scoliosis, unspecified scoliosis type, unspecified spinal region M41.9 Active 507479410 Problem Low back pain M54.5 Active 004766057 Problem Pure hypercholesterolemia E78.00 Active 093867578 ALLERGIES Unknown Allergies SOCIAL HISTORY No smoking Hx information available PLAN OF CARE VITAL SIGNS MEDICATIONS Unknown Medications RESULTS No Results PROCEDURES Procedure Date Ordered Related Diagnosis Body Site PT EVALUATION Mar 12, 2016 THERAPEUTIC EXERCISES Mar 12, 2016 IMMUNIZATIONS No Known Immunizations
--- OUTSIDE RECORDS SUMMARY | 2017-11-02 09:20 | XMS REPORT ---
Author Author ODETTE MICHEL [facility] eClinicalWorks Address Unknown Phone Unavailable Care Team Providers Care Foot Cutter Name Role Phone ODETTE MICHEL CP Unavailable Allergies, Adverse Reactions, Alerts Substance Reaction Event Type Sulfamethoxazole questionable allergy Drug Allergy Problems Problem Type Condition Code Onset Dates Condition Status Assessment Meningioma D32.9 Active Assessment Pain in right knee M25.561 Active Assessment Pain in left knee M25.562 Active Assessment Family history of coronary artery disease Z82.49 Active Problem Personal history of pulmonary embolism Z86.711 Active Problem Postmenopausal bleeding N95.0 Active Problem DVT (deep venous thrombosis), left I82.402 Active Problem Pure hypercholesterolemia E78.0 Active Assessment DVT (deep venous thrombosis), left I82.402 Active Problem Meningioma D32.9 Active Problem Thyroid nodule E04.1 Active Medications Medication Code System Code Instructions Start Date End Date Status Dosage Xarelto [facility] [address]-05 20 MG Orally Once a day November 08, 2014 1 tablet with food Procedures Procedure Coding System Code Date Office Visit, Est Pt., Level 4 CPT-4 74722 Apr 19, 2015 Vital Signs Date/Time: Apr 19, 2015 Temperature 98.6 F Weight 169.6 lbs Height 61 in BMI 32.04 Index Blood Pressure Diastolic 88 mmHg Blood Pressure Systolic 128 mmHg Cardiac Monitoring Heart Rate 82 bpm Results No Known Results Summary Purpose eClinicalWorks Submission
--- OUTSIDE RECORDS SUMMARY | 2017-11-02 09:20 | XMS REPORT ---
Author Author ODETTE MICHEL [facility] eClinicalWorks Address Unknown Phone Unavailable Care Team Providers Care Sandblast Carver Name Role Phone ODETTE MICHEL CP Unavailable Allergies, Adverse Reactions, Alerts Substance Reaction Event Type Sulfamethoxazole questionable allergy Drug Allergy Problems Problem Type Condition ICD-9 Code Onset Dates Condition Status Problem Meningioma 225.2 Active Problem Thyroid nodule 241.0 Active Problem Venous thromboembolism (VTE) 453.9 Active Problem Hyperlipidemia 272.4 Active Assessment Candidal skin infection 112.3 Active Medications Medication Code System Code Instructions Start Date End Date Status Dosage Xarelto [facility] [address]-47 20 MG Orally Once a day November 08, 2014 1 tablet with food Nystatin [facility] [address]-22 931358 UNIT/GM Externally Three times a day until rash gone x 2 days Dec 15, 2014 1 application to affected area Procedures Procedure Coding System Code Date Office Visit, Est Pt., Level 3 CPT-4 23122 Dec 15, 2014 Vital Signs Date/Time: Dec 15, 2014 Temperature 98.5 F Weight 167.0 lbs Height 61 in BMI 31.55 Index Blood Pressure Diastolic 88 mmHg Blood Pressure Systolic 136 mmHg Cardiac Monitoring Heart Rate 84 bpm Results No Known Results Summary Purpose eClinicalWorks Submission
--- OUTSIDE RECORDS SUMMARY | 2017-11-02 09:20 | XMS REPORT ---
Author Author ODETTE MICHEL eClinicalWorks Address Unknown Phone Unavailable Care Team Providers Care Cash Applications Coordinator Name Role Phone ODETTE MICHEL CP Unavailable Allergies, Adverse Reactions, Alerts Substance Reaction Event Type Sulfamethoxazole questionable allergy Drug Allergy Problems Problem Type Condition Code Onset Dates Condition Status Problem Thyroid nodule E04.1 Active Problem History of DVT (deep vein thrombosis) Z86.718 Active Problem Meningioma D32.9 Active Problem Low back pain M54.5 Active Problem Pure hypercholesterolemia E78.00 Active Problem Other chronic pain G89.29 Active Problem Personal history of pulmonary embolism Z86.711 Active Problem Postmenopausal bleeding N95.0 Active Problem Left leg weakness M62.81 Active Problem Scoliosis, unspecified scoliosis type, unspecified spinal region M41.9 Active Assessment Pure hypercholesterolemia E78.00 Active Assessment Other chronic pain G89.29 Active Assessment Low back pain M54.5 Active Medications Medication Code System Code Instructions Start Date End Date Status Dosage Aleve [facility] [address]-16 220 MG Orally not defined Procedures Procedure Coding System Code Date Office Visit, Est Pt., Level 3 CPT-4 77956 Feb 26, 2016 Vital Signs Date/Time: Feb 26, 2016 Cardiac Monitoring Heart Rate 82 bpm Weight 181.4 lbs Height 61 in BMI 34.27 Index Blood Pressure Diastolic 72 mmHg Blood Pressure Systolic 138 mmHg Results No Known Results Summary Purpose eClinicalWorks Submission
--- OUTSIDE RECORDS SUMMARY | 2017-11-02 09:20 | XMS REPORT ---
Author Author ODETTE MICHEL eClinicalWorks Address Unknown Phone Unavailable Care Team Providers Care Jr. Java Developer Name Role Phone ODETTE MICHEL CP Unavailable Allergies No Known Allergies Problems Problem Type Condition Code Onset Dates Condition Status Problem Pure hypercholesterolemia E78.0 Active Problem History of blood clots Z86.718 Active Problem History of thyroid nodule Z86.39 Active Problem Personal history of pulmonary embolism Z86.711 Active Problem Meningioma D32.9 Active Problem Thyroid nodule E04.1 Active Problem Postmenopausal bleeding N95.0 Active Problem DVT (deep venous thrombosis), unspecified laterality I82.409 Active Medications No Known Medications Results No Known Results Summary Purpose eClinicalWorks Submission
--- OUTSIDE RECORDS SUMMARY | 2017-11-02 09:20 | XMS REPORT ---
Author Author TREY Muniz Organization [facility] Address [address] [place] [address] Care Team Providers Care Microsoft Dynamics Consultant Name Role Phone TREY Muniz Unavailable PROBLEMS Type Condition ICD9-CM Code [id number] Code Onset Dates Condition Status SNOMED Code Problem Postmenopausal bleeding N95.0 Active 53075624 Problem Scoliosis, unspecified scoliosis type, unspecified spinal region M41.9 Active 713077352 Problem Left leg weakness M62.81 Active 329080642 Problem Major depressive disorder, single episode, mild F32.0 Active 48047856 Problem Reflux esophagitis K21.0 Active 066197645 Problem Other chronic pain G89.29 Active 11141867 Problem Low back pain M54.5 Active 048623993 Problem Dysphagia, unspecified type R13.10 Active 79215304 Problem Pure hypercholesterolemia E78.00 Active 177195410 Problem Meningioma D32.9 Active 259611409 Problem History of DVT (deep vein thrombosis) Z86.718 Active 532538630 Problem Thyroid nodule E04.1 Active 496415990 Problem Prediabetes R73.03 Active 369955656 Problem Personal history of pulmonary embolism Z86.711 Active 080357428 ALLERGIES No Information ENCOUNTERS Encounter Location Date Diagnosis [facility] [id number] [address] Sep, [facility] [id number] [address] Sep, [facility] [id number] [place] [address] August, Insect bite (nonvenomous), right lower leg, initial encounter S80.861A and Bitten or stung by nonvenomous insect and other nonvenomous arthropods, initial encounter W57.XXXA [address] [id number] [place] [address] August, Thyroid nodule E04.1 ; Prediabetes R73.03 ; Pure hypercholesterolemia E78.00 ; Low back pain M54.5 and Need for hepatitis C screening test Z11.59 [address] [address] [id number] [place] [address] 04 Apr, 2017 Screening for breast cancer Z12.[address] [address] 29 Mar, 2017 Well woman exam (no gynecological exam) Z00.00 ; Pure hypercholesterolemia E78.00 ; Prediabetes R73.03 ; Acute bronchitis, unspecified organism J20.9 ; Thyroid nodule E04.1 ; Encounter for screening for lung cancer Z12.2 and Encounter for screening for malignant neoplasm of colon Z12.[address] [address] Mar, [address] [address] 15 Feb, 2017 Moderate single current episode of major depressive disorder F32.1 ; Major depressive disorder, single episode, mild F32.0 and Other chronic pain G89.29 [address] [id number] [place] [address] 13 Feb, 2017 Reflux esophagitis K21.0 ; Dysphagia, unspecified type R13.10 ; Bereavement Z63.4 ; Low back pain M54.5 and Other chronic pain G89.29 [address] [id number] [place] [address] 13 May, 2016 Fever, unspecified fever cause R50.9 and Sinus pressure J34.89 [address] [id number] [place] [address]- [address] 07 May, 2016 Thyroid nodule E04.[address] [address] May, [id number] [place] [address] Apr, Dizziness R42 ; Thyroid nodule E04.1 and History of DVT ( deep vein thrombosis) Z86.718 [place] [id number] [place] [address] Apr, [address] [address] [address] Mar, Other chronic pain G89.29 and Moderate single current episode of major depressive disorder F32.1 [address] [address] Mar, [address] [address] [address] Mar, [place] [address] [address] Mar, Pain of left calf M79.662 and Swelling of left lower extremity M79.89 [place] [id number] [place] [address] Feb, Low back pain M54.5 [place] [id number] [place] [address] Feb, Pure hypercholesterolemia E78.00 [place] [id number] [place] [address] 269[address] Feb, Low back pain M54.5 ; Other chronic pain G89.29 and Pure hypercholesterolemia E78.00 [place] [id number] [place] [address] 15[address]- 2017 August, Left leg weakness M62.81 and Scoliosis, unspecified scoliosis type, unspecified spinal region M41.9 [place] [id number] [place] [address] August, Left leg weakness M62.81 and Scoliosis of thoracic spine, unspecified scoliosis type M41.9 [place] [id number] [place] [address] August, [place] [id number] [place] [address] 8[address] May, [facility] [address] [place] [id number] Apr, Dental examination Z01.20 [address] [address] [address] 14 Apr, 2015 [place] [address] [address] Apr, DVT (deep venous thrombosis), left I82.402 ; Pain in right knee M25.561 ; Pain in left knee M25.562 ; Meningioma D32.9 and Family history of coronary artery disease Z82.49 [address] [address] [address] Mar, Well woman exam Z01.419 [place] [id number] [place] [address] Mar, [place] [address] [address] Feb, [place] [id number] [place] [address] 7[address] Feb, Well woman exam Z01.419 ; Encounter [...] Depressed mood F32.9 and Abdominal cramping R10.9 [place] [id number] [place] [address]- 2[address] Feb, [place] [id number] [place] [address] 15238- 46[address] Feb, [facility] [id number] [place] [address] 67[address] Jan, DVT (deep venous thrombosis), unspecified laterality I82.409 and Chest pain, unspecified chest pain type R07.9 [facility] [address] [address] Jan, Insect bite W57.XXXA and DVT (deep venous thrombosis), left I82.402 [facility] [address] [id number] Jan, Dental examination Z01.20 [facility] [id number] [place] [address] 14698- 4713 Jan, Infected tooth K04.7 [facility] [address] [address] Dec, [facility] [id number] [place] [id number] Dec, Dental examination V72.2 [place] [id number] [place] [address] 76799- [address]6 Dec, Candidal skin infection 112.3 [place] [id number] [place] [address]- [address] Dec, Hyperlipidemia 272.4 [facility] [id number] [place] [address] 45609[address] 6[address] Nov, Venous thromboembolism (VTE) 453.9 ; Meningioma 225.2 and Thyroid nodule 241.0 [facility] [address] [id number] Oct, [facility] [id number] [place] [address] [id number]- [address]996 Oct, [facility] [address] [address] Sep, 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 [facility] [address] [address] Sep, Upper back pain 724.5 and Chronic cough 786.2 [facility] [address] [id number] August, Conjunctivitis 372.30 [facility] [id number] [place] [address] 70662[address] 9[address] Jul, [facility] [address] [address] Jul, [facility] [id number] [place] [address] 859298- 1810 Jan, [facility] [id number] [address] Jan, [facility] [address] [address] Jan, [facility] [address] [address] Jan, [facility] [address] [address] Jan, [facility] [address] [address] Jan, [facility] [address] [address] Mar, [facility] [id number] [address] Mar, IMMUNIZATIONS No Known Immunizations SOCIAL HISTORY Never Assessed REASON FOR VISIT Mammogram order PLAN OF CARE VITAL SIGNS MEDICATIONS Unknown Medications RESULTS Name Result Date Reference Range Mammogram, Bilateral Screening 2017-05-05 PROCEDURES No Known procedures INSTRUCTIONS MEDICATIONS ADMINISTERED [...]
--- OUTSIDE RECORDS SUMMARY | 2017-11-02 09:20 | XMS REPORT ---
Author Author ODETTE MICHEL [facility] eClinicalWorks Address Unknown Phone Unavailable Care Team Providers Care Residential Installer Name Role Phone ODETTE MICHEL Unavailable Allergies No Known Allergies Problems Problem Type Condition Code Onset Dates Condition Status Problem Meningioma D32.9 Active Problem Thyroid nodule E04.1 Active Problem DVT (deep venous thrombosis), unspecified laterality I82.409 Active Problem Pure hypercholesterolemia E78.0 Active Medications No Known Medications Results No Known Results Summary Purpose eClinicalWorks Submission
--- OUTSIDE RECORDS SUMMARY | 2017-11-02 09:20 | XMS REPORT ---
Author Author ODETTE MICHEL [facility] eClinicalWorks Address Unknown Phone Unavailable Care Team Providers Care Financial Service Rep Name Role Phone ODETTE MICHEL CP Unavailable Allergies No Known Allergies Problems Problem Type Condition ICD-9 Code Onset Dates Condition Status Problem Meningioma 225.2 Active Problem Thyroid nodule 241.0 Active Problem Venous thromboembolism (VTE) 453.9 Active Problem Hyperlipidemia 272.4 Active Assessment Hyperlipidemia 272.4 Active Medications No Known Medications Results No Known Results Summary Purpose eClinicalWorks Submission
--- OUTSIDE RECORDS SUMMARY | 2017-11-02 09:20 | XMS REPORT ---
Author Author ODETTE MICHEL [employer]ClinicalWorks Address Unknown Phone Unavailable Care Team Providers Care Audio Visual Production Specialist Name Role Phone ODETTE MICHEL CP Unavailable [...]
--- OUTSIDE RECORDS SUMMARY | 2017-11-02 09:20 | XMS REPORT ---
Author Author ODETTE MICHEL Organization [facility] Address [address] [place] [address] Care Team Providers Care Extruder Operator Name Role Phone ODETTE MICHEL Unavailable PROBLEMS Type Condition ICD9-CM Code [id number] Code Onset Dates Condition Status SNOMED Code Problem Thyroid nodule E04.1 Active 409985975 Problem Postmenopausal bleeding N95.0 Active 49305383 Problem Personal history of pulmonary embolism Z86.711 Active 035362768 Problem Prediabetes R73.03 Active 103685502 Problem Meningioma D32.9 Active 618940179 Problem History of DVT (deep vein thrombosis) Z86.718 Active 989141606 Problem Moderate single current episode of major depressive disorder F32.1 Active 04650912 Problem Pure hypercholesterolemia E78.00 Active 023220769 Problem Scoliosis, unspecified scoliosis type, unspecified spinal region M41.9 Active 742606813 Problem Left leg weakness M62.81 Active 920907199 Problem Other chronic pain G89.29 Active 76854910 Problem Low back pain M54.5 Active 634654384 ALLERGIES No Known Allergies SOCIAL HISTORY No smoking Hx information available PLAN OF CARE VITAL SIGNS MEDICATIONS No Known Medications RESULTS No Results PROCEDURES No Known procedures IMMUNIZATIONS No Known Immunizations
--- OUTSIDE RECORDS SUMMARY | 2017-11-02 09:20 | XMS REPORT ---
Author Author GLADYS BLAKE [facility] eClinicalWorks Address Unknown Phone Unavailable Care Team Providers Care Behavioral Health Worker Name Role Phone GLADYS BLAKE Unavailable Allergies No Known Allergies Problems Problem Type Condition Code Onset Dates Condition Status Problem Pure hypercholesterolemia E78.0 Active Assessment Well woman exam Z01.419 Active Problem History of blood clots Z86.718 [...]
--- OUTSIDE RECORDS SUMMARY | 2017-11-02 09:20 | XMS REPORT ---
Author Author ODETTE MICHEL [facility] eClinicalWorks Address Unknown Phone Unavailable Care Team Providers Care Assembly Line Supervisor Name Role Phone ODETTE MICHEL CP Unavailable Allergies No Known Allergies Problems Problem Type Condition Code Onset Dates Condition Status Problem Personal history of pulmonary embolism Z86.711 Active Problem Postmenopausal bleeding N95.0 Active Problem DVT (deep venous thrombosis), left I82.402 Active Problem Pure hypercholesterolemia E78.0 Active Problem Meningioma D32.9 Active Problem Thyroid nodule E04.1 Active Medications No Known Medications Results No Known Results Summary Purpose eClinicalWorks Submission
--- OUTSIDE RECORDS SUMMARY | 2017-11-02 09:20 | XMS REPORT ---
Author Author ODETTE MICHEL [facility] eClinicalWorks Address Unknown Phone Unavailable Care Team Providers Care Senior Field Service Engineer Name Role Phone ODETTE MICHEL CP Unavailable Allergies, Adverse Reactions, Alerts Substance Reaction Event Type Sulfamethoxazole questionable allergy Drug Allergy Problems Problem Type Condition Code Onset Dates Condition Status Problem Meningioma D32.9 Active Problem Thyroid nodule E04.1 Active Problem DVT (deep venous thrombosis), unspecified laterality I82.409 Active Assessment Chest pain, unspecified chest pain type R07.9 Active Problem Pure hypercholesterolemia E78.0 Active Assessment DVT (deep venous thrombosis), unspecified laterality I82.409 Active Medications Medication Code System Code Instructions Start Date End Date Status Dosage Xarelto [facility] [address]-42 20 MG Orally Once a day November 08, 2014 1 tablet with food Procedures Procedure Coding System Code Date Office Visit, Est Pt., Level 3 CPT-4 02462 Feb 09, 2015 Vital Signs Date/Time: Feb 09, 2015 Temperature 98.2 F Weight 170.0 lbs Height 61 in BMI 32.12 Index Blood Pressure Diastolic 70 mmHg Blood Pressure Systolic 136 mmHg Results No Known Results Summary Purpose eClinicalWorks Submission
--- OUTSIDE RECORDS SUMMARY | 2017-11-02 09:20 | XMS REPORT ---
Author Author ELHAM MARTINO Organization [facility] Address [address] [place] [address] Care Team Providers Care Sales Representative Education Courses Name Role Phone ELHAM MARTINO Unavailable PROBLEMS Type Condition ICD9-CM Code MWM08-[id number] Code Onset Dates Condition Status SNOMED Code Problem Thyroid nodule E04.1 Active 637654349 Problem Postmenopausal bleeding N95.0 Active 38017739 Problem Personal history of pulmonary embolism Z86.711 Active 468103948 Problem Prediabetes R73.03 Active 370314460 Problem Meningioma D32.9 Active 574180985 Problem History of DVT (deep vein thrombosis) Z86.718 Active 758900519 Problem Moderate single current episode of major depressive disorder F32.1 Active 58364489 Problem Pure hypercholesterolemia E78.00 Active 280817547 Problem Scoliosis, unspecified scoliosis type, unspecified spinal region M41.9 Active 859945512 Problem Left leg weakness M62.81 Active 860463365 Problem Other chronic pain G89.29 Active 61575993 Problem Low back pain M54.5 Active 750717514 ALLERGIES Substance Reaction Event Type Date Status Sulfamethoxazole questionable allergy Drug Allergy May, Active SOCIAL HISTORY Never Assessed PLAN OF CARE Activity Details Follow Up Next available for wellness exam Reason: VITAL SIGNS Height 61 in 2016-05-26 Weight 183 lbs 2016-05-26 Temperature 99.3 degrees Fahrenheit 2016-05-26 Heart Rate 80 bpm 2016-05-26 Respiratory Rate 20 2016-05-26 BMI 34.57 kg/m2 2016-05-26 Blood pressure systolic 118 mmHg 2016-05-26 Blood pressure diastolic 80 mmHg 2016-05-26 MEDICATIONS Medication Instructions Dosage Frequency Start Date End Date Duration Status Zantac 150 Maximum Strength 150 MG Orally Once a day 1 tablet at bedtime 24h Active Aleve 220 MG Active RESULTS Name Result Date Reference Range INFLUENZA A & B (IN HOUSE) 2016-05-26 INFLUENZA A negative INFLUENZA B negative Control + Lot # [id number] Exp date 10/09/2017 STREP A (IN HOUSE) 2016-05-26 STREP A negative Control + Lot # [id number] Exp date 06/10/2017 PROCEDURES Procedure Date Ordered Result Body Site STREP A ASSAY W/OPTIC May 26, 2016 INFLUENZA ASSAY W/OPTIC May 26, 2016 IMMUNIZATIONS No Known Immunizations MEDICAL (GENERAL) HISTORY [...]
--- OUTSIDE RECORDS SUMMARY | 2017-11-02 09:21 | XMS REPORT ---
Author Author SHERRY APODACA [facility] eClinicalWorks Address Unknown Phone Unavailable Care Team Providers Care Personal Protection Specialist Name Role Phone SHERRY APODACA CP Unavailable Allergies, Adverse Reactions, Alerts Substance Reaction Event Type Sulfamethoxazole questionable allergy Drug Allergy Problems Problem Type Condition Code Onset Dates Condition Status Problem Meningioma 225.2 Active Problem Thyroid nodule 241.0 Active Problem Venous thromboembolism (VTE) 453.9 Active Problem Hyperlipidemia 272.4 Active Assessment Infected tooth K04.7 Active Medications Medication Code System Code Instructions Start Date End Date Status Dosage Nystatin [facility] [address]-08 298961 UNIT/GM Externally Three times a day until rash gone x 2 days Dec 15, 2014 1 application to affected area Xarelto [facility] [address]-50 20 MG Orally Once a day November 08, 2014 1 tablet with food Keflex [facility] [address]-36 500 MG Orally 3 times a day Jan 24, 2015 Feb 03, 2015 1 capsule Procedures Procedure Coding System Code Date Office Visit, Est Pt., Level 3 CPT-4 65041 Jan 24, 2015 Vital Signs Date/Time: Jan 24, 2015 Temperature 98.3 F Weight 166.5 lbs Height 61 in BMI 31.46 Index Blood Pressure Diastolic 80 mmHg Blood Pressure Systolic 122 mmHg Cardiac Monitoring Heart Rate 80 bpm Results No Known Results Summary Purpose eClinicalWorks Submission
--- OUTSIDE RECORDS SUMMARY | 2017-11-02 09:21 | XMS REPORT ---
Author Author ODETTE MICHEL [facility] eClinicalWorks Address Unknown Phone Unavailable Care Team Providers Care Molder Labels Name Role Phone ODETTE MICHEL Unavailable Allergies No Known Allergies Problems Problem Type Condition Code Onset Dates Condition Status Problem Meningioma D32.9 Active Problem Thyroid nodule E04.1 Active Problem DVT (deep venous thrombosis), unspecified laterality I82.409 Active Problem Pure hypercholesterolemia E78.0 Active Medications No Known Medications Results No Known Results Summary Purpose eClinicalWorks Submission
--- OUTSIDE RECORDS SUMMARY | 2017-11-02 09:21 | XMS REPORT ---
Author Author GLADYS BLAKE [facility] [employer] Address Unknown Phone Unavailable Care Team Providers Care Indirect Sales Exec Name Role Phone GLADYS BLAKE CP Unavailable Allergies, Adverse Reactions, Alerts Substance Reaction Event Type Sulfamethoxazole questionable allergy Drug Allergy Problems Problem Type Condition Code Onset Dates Condition Status Assessment Encounter for screening for malignant neoplasm of cervix Z12.4 Active Problem Pure hypercholesterolemia E78.0 Active Assessment Well woman exam Z01.419 Active Problem History of blood clots Z86.718 Active Problem History of thyroid nodule Z86.39 Active Problem Personal history of pulmonary embolism Z86.711 Active Problem Meningioma D32.9 Active Problem Thyroid nodule E04.1 Active Problem Postmenopausal bleeding N95.0 Active Problem DVT (deep venous thrombosis), unspecified laterality I82.409 Active Assessment Dense breast tissue R92.2 Active Assessment Friable cervix N88.8 Active Assessment Abdominal cramping R10.9 Active Assessment Depressed mood F32.9 Active Assessment History of thyroid nodule Z86.39 Active Assessment History of blood clots Z86.718 Active Assessment Right lower quadrant pain R10.31 Active Assessment Personal history of pulmonary embolism Z86.711 Active Assessment Postmenopausal bleeding N95.0 Active Assessment BMI 32.0-32.9,adult Z68.32 Active Medications Medication Code System Code Instructions Start Date End Date Status Dosage Xarelto [facility] [place] [address]-05 20 MG Orally Once a day November 08, 2014 1 tablet with food Procedures Procedure Coding System Code Date GLYCATED HEMOGLOBIN TEST CPT-4 88838 Mar 05, 2015 COMPLETE CBC W/AUTO DIFF WBC CPT-4 74633 Mar 05, 2015 SPECIMEN HANDLING CPT-4 71270 Mar 05, 2015 No Charge CPT-4 05314 Mar 05, 2015 COMPREHEN METABOLIC PANEL CPT-4 48362 Mar 05, 2015 Preventive Care Est Pt. Age 40-64 CPT-4 41902 Mar 05, 2015 VENIPUNCT, ROUTINE* CPT-4 67344 Mar 05, 2015 Vital Signs Date/Time: Mar 05, 2015 Temperature 98.7 F Weight 170.9 lbs Height 61 in BMI 32.29 Index Blood Pressure Diastolic 86 mmHg Blood Pressure Systolic 128 mmHg Cardiac Monitoring Heart Rate 80 bpm Results Name Result Date Reference Range Unit Abnormality Flag ROUTINE VENIPUNCTURE Summary Purpose [employer] Submission
--- OUTSIDE RECORDS SUMMARY | 2017-11-02 09:24 | XMS REPORT | Continuity of Care Document ---
Author Author Formerly [facility] Address Unknown Phone Unavailable Allergies Active Description Code Type Severity Reaction Onset Reported/Identified Relationship to Patient Clinical Status Yes No Known Drug Allergies [id number] Drug Allergy Unknown N/A 06/07/2013 Medications There is no data. Problems Date Dx Coded Attending Type Code Diagnosis Diagnosed By 09/18/2010 VICK TORIBIO APRN V06.5 DT, TETANUS-DIPHTHERIA [Td] ,TDAP 03/20/2011 VICK TORIBIO APRN 462 PHARYNGITIS 03/20/2011 VICK TORIBIO APRN 465.9 UPPER RESPIRATORY INFECTION 06/07/2013 PHOENIX GALARZA, MARICRUZ Howe Ot 729.5 PAIN IN LIMB 06/07/2013 PHOENIX GALARZA, MARICRUZ Howe Ot V12.55 PERSONAL HISTORY OF PULMONARY EMBOLISM 01/25/2014 VICK TORIBIO APRN 789.00 ABDOMINAL PAIN UNSPECIFIED SITE 03/08/2014 VICK TORIBIO APRN Ot 789.00 03/28/2014 VICK TORIBIO APRN Ot 789.00 05/31/2014 Ot 786.05 05/31/2014 Ot 786.2 05/31/2014 Ot 627.1 05/31/2014 Ot 787.91 05/31/2014 Ot 627.1 05/31/2014 Ot V76.12 05/31/2014 JOYCE LANG DO Ot 722.52 05/31/2014 PRECIOUS GRUBBS, JOYCE Ot V76.12 05/31/2014 VICK TORIBIO APRN Ot 789.00 06/06/2014 Ot 285.9 06/06/2014 Ot 368.9 06/06/2014 Ot 723.1 06/06/2014 Ot 780.2 06/06/2014 Ot 780.4 06/06/2014 Ot 782.0 06/06/2014 Ot 790.29 06/06/2014 Ot V58.69 08/03/2014 Ot 285.9 08/03/2014 Ot 368.9 08/03/2014 Ot 723.1 08/03/2014 Ot 780.2 08/03/2014 Ot 780.4 08/03/2014 Ot 782.0 08/03/2014 Ot 790.29 08/03/2014 Ot V58.69 08/03/2014 Ot 225.2 08/03/2014 Ot 241.0 08/08/2014 JOYCE ROSALES MD Ot 241.0 08/11/2014 Ot 786.05 08/11/2014 Ot 786.2 08/11/2014 Ot 627.1 08/11/2014 Ot 787.91 08/11/2014 Ot 627.1 08/11/2014 Ot V76.12 08/11/2014 JOYCE LANG DO Ot 722.52 08/11/2014 JOYCE LANG DO Ot V76.12 08/11/2014 VICK TORIBIO APRN Ot 789.00 08/11/2014 Ot 285.9 08/11/2014 Ot 368.9 08/11/2014 Ot 723.1 08/11/2014 Ot 780.2 08/11/2014 Ot 780.4 08/11/2014 Ot 782.0 08/11/2014 Ot 790.29 08/11/2014 Ot V58.69 08/11/2014 Ot 225.2 08/11/2014 Ot 241.0 08/11/2014 JOYCE ROSALES MD Ot 241.0 08/11/2014 Ot 285.9 08/11/2014 Ot 368.9 08/11/2014 Ot 723.1 08/11/2014 Ot 780.2 08/11/2014 Ot 780.4 08/11/2014 Ot 782.0 08/11/2014 Ot 790.29 08/11/2014 Ot V58.69 08/11/2014 Ot 225.2 08/11/2014 Ot 241.0 08/11/2014 Ot 225.2 09/01/2014 Ot 285.9 09/01/2014 Ot 368.9 09/01/2014 Ot 723.1 09/01/2014 Ot 780.2 09/01/2014 Ot 780.4 09/01/2014 Ot 782.0 09/01/2014 Ot 790.29 09/01/2014 Ot V58.69 09/01/2014 Ot 225.2 09/01/2014 Ot 241.0 09/27/2014 CONNIE GALARZA, JOYCE Youssef Ot 241.0 10/03/2014 ATTILA VERA GRADUATE STUDIES DEAN Ot 308.9 ACUTE STRESS REACT NOS 10/03/2014 ATTILA VERA GRADUATE STUDIES DEAN Ot 724.2 LUMBAGO 10/06/2014 HASMUKH BAUTISTA MD Ot 225.2 10/06/2014 HASMUKH BAUTISTA MD Ot 278.00 10/06/2014 HASMUKH BAUTISTA MD Ot 786.50 10/06/2014 HASMUKH BAUTISTA MD Ot V17.3 10/18/2014 RADHA SOLIS Ot 415.19 OTH PULMON EMBOLISM/INFARCT 10/18/2014 RADHA SOLIS Ot 453.41 ACUTE VENOUS EMBOLISM THROMBOSIS DEEP 10/18/2014 RADHA SOLIS Ot 453.42 ACUTE VENOUS EMBOLISM THROMBOSIS DEEP 10/18/2014 RADHA SOLIS Ot 729.5 PAIN IN LIMB 10/19/2014 Ot 786.05 10/19/2014 Ot 786.2 10/19/2014 Ot 627.1 10/19/2014 Ot 787.91 10/19/2014 Ot 627.1 10/19/2014 Ot V76.12 10/19/2014 JOYCE LANG DO Ot 722.52 10/19/2014 JOYCE LANG DO Ot V76.12 10/19/2014 VICK TORIBIO APRN Ot 789.00 10/19/2014 Ot 285.9 10/19/2014 Ot 368.9 10/19/2014 Ot 723.1 10/19/2014 Ot 780.2 10/19/2014 Ot 780.4 10/19/2014 Ot 782.0 10/19/2014 Ot 790.29 10/19/2014 Ot V58.69 10/19/2014 Ot 225.2 10/19/2014 Ot 241.0 10/19/2014 JOYCE ROSALES MD Ot 241.0 10/19/2014 HASMUKH BAUTISTA MD Ot 225.2 10/19/2014 HASMUKH BAUTISTA MD Ot 278.00 10/19/2014 HASMUKH BAUTISTA MD Ot 786.50 10/19/2014 HASMUKH BAUTISTA MD Ot V17.3 10/19/2014 DIAMOND SHELBY FAMILY PRACTITIONER Ot 721.2 10/19/2014 DINO PALOMO MD Ot 415.19 OTH PULMON EMBOLISM/INFARCT 10/19/2014 DINO PALOMO MD Ot 453.40 ACUTE VENOUS EMBOLISM THROMBOSIS UNSP 10/19/2014 DINO PALOMO MD Ot 599.0 URIN TRACT INFECTION NOS 10/19/2014 DINO PALOMO MD Ot 780.2 SYNCOPE AND COLLAPSE 10/19/2014 DINO PALOMO MD Ot 780.4 DIZZINESS AND GIDDINESS 10/19/2014 DINO PALOMO MD Ot V58.69 OTH MED,LT,CURRENT USE 10/27/2014 DIAMOND SHELBY FAMILY PRACTITIONER Ot 721.2 10/31/2014 DAIMOND SHELBY FAMILY PRACTITIONER Ot 721.2 10/31/2014 DIAMOND SHELBY FAMILY PRACTITIONER Ot 721.2 10/31/2014 HASMKUH BAUTISTA MD Ot 225.2 10/31/2014 HASMUKH BAUTISTA MD Ot 278.00 10/31/2014 HASMUKH BAUTISTA MD Ot 786.50 10/31/2014 HASMUKH BAUTISTA MD Ot V17.3 11/14/2014 LANCE HOLCOMB MD Ot 786.50 CHEST PAIN NOS 11/14/2014 LANCE HOLCOMB MD Ot 786.52 PAINFUL RESPIRATION 11/14/2014 LANCE HOLCOMB MD Ot V12.51 HX-VENOUS THROMBOSIS EMBOLISM 11/14/2014 LANCE HOLCOMB MD Ot V12.55 PERSONAL HISTORY OF PULMONARY EMBOLISM 11/14/2014 LANCE HOLCOMB MD Ot V58.61 ANTICOAGULANTS,LT,CURRENT USE 11/22/2014 CONNIE GALARZA, JOYCE P Ot 241.0 11/22/2014 HASMUKH BAUTISTA MD Ot 225.2 11/22/2014 HASMUKH BAUTISTA MD Ot 278.00 11/22/2014 HASMUKH BAUTISTA MD Ot 786.50 11/22/2014 HASMUKH BAUTISTA MD Ot V17.3 11/22/2014 DIAMOND SHELBY FAMILY PRACTITIONER Ot 721.2 11/22/2014 DIAMOND SHELBY FAMILY PRACTITIONER Ot 721.2 11/22/2014 HASMUKH BAUTISTA MD Ot 225.2 11/22/2014 MICHELE GALARZA, HASMUKH Torres Ot 278.00 11/22/2014 HASMUKH BAUTISTA MD Ot 786.50 11/22/2014 HASMUKH BAUTISTA MD Ot V17.3 11/22/2014 CONNIE GALARZA, JOYCE Youssef Ot 241.0 12/04/2014 CONNIE GALARZA, JOYCE Youssef Ot 241.0 12/04/2014 HASMUKH BAUTISTA MD Ot 225.2 12/04/2014 HASMUKH BAUTISTA MD Ot 278.00 12/04/2014 HASMUKH BAUTISTA MD Ot 786.50 12/04/2014 HASMUKH BAUTISTA MD Ot V17.3 12/04/2014 DIAMOND SHELBY Ot 721.2 12/21/2014 HASMUKH BAUTISTA MD Ot 225.2 12/21/2014 HASMUKH BAUTISTA MD Ot 278.00 12/21/2014 HASMUKH BAUTISTA MD Ot 786.50 12/21/2014 HASMUKH BAUTISTA MD Ot V17.3 12/28/2014 GENEVIEVE MARCUS DPM Ot 726.72 02/19/2015 Ot 786.05 02/19/2015 Ot 786.2 02/19/2015 Ot 627.1 02/19/2015 Ot 787.91 02/19/2015 Ot 627.1 02/19/2015 Ot V76.12 02/19/2015 LANG DO, JOYCE Ot 722.52 02/19/2015 PRECIOUS GRUBBS, JOYCE Ot V76.12 02/19/2015 VICK TORIBIO APRN Ot 789.00 02/19/2015 Ot 285.9 02/19/2015 Ot 368.9 02/19/2015 Ot 723.1 02/19/2015 Ot 780.2 02/19/2015 Ot 780.4 02/19/2015 Ot 782.0 02/19/2015 Ot 790.29 02/19/2015 Ot V58.69 02/19/2015 Ot 225.2 02/19/2015 Ot 241.0 02/19/2015 CONNIE GALARZA, JOYCE P Ot 241.0 02/19/2015 HASMUKH BAUTISTA MD Ot 225.2 02/19/2015 HASMUKH BAUTISTA MD Ot 278.00 02/19/2015 MICHELE GALARZA, HASMUKH Torres Ot 786.50 02/19/2015 MICHELE GALARZA, HASMUKH Torres Ot V17.3 02/19/2015 MICHELE GALARZA, HASMUKH Torres Ot 225.2 02/19/2015 MICHELE GALARZA, HASMUKH Torres Ot 278.00 02/19/2015 MICHELE GALARZA, HASMUKH Torres Ot 786.50 02/19/2015 MICHELE GALARZA, HASMUKH Torres Ot V17.3 02/19/2015 DIAOMND SHELBY FAMILY PRACTITIONER Ot 721.2 02/19/2015 AMRIT DPM, GENEVIEVE Q Ot 726.72 02/20/2015 ODETTE MICHEL MD Ot I82.409 02/21/2015 ODETTE MICHEL MD Ot I82.409 04/04/2015 ODETTE MICHEL MD Ot I82.402 04/17/2015 GLADYS BLAKE APRN Ot N95.0 04/17/2015 GLADYS BLAKE APRN Ot R10.31 04/24/2015 ODETTE MICHEL MD Ot I82.402 04/24/2015 GLADYS BLAKE APRN Ot N95.0 04/24/2015 GLADYS BLAKE APRN Ot R10.31 04/27/2015 PHOENIX GALARZA, MARICRUZ Howe Ot M79.662 PAIN IN LEFT LOWER LEG 04/27/2015 PHOENIX GALARZA, MARICRUZ Howe Ot Z53.21 PROC/TRTMT NOT CRD OUT D/T PT LV BEF SEE 04/27/2015 ATTILA VERA APRN Ot I87.002 POSTTHROMBOTIC SYNDROME W/O COMPLICATION 04/27/2015 ATTILA VERA APRN Ot I87.009 04/27/2015 ATTILA VERA APRN Ot M72.2 PLANTAR FASCIAL FIBROMATOSIS 04/27/2015 ATTILA VERA APRN Ot Z79.01 USP (CURRENT) USE OF ANTICOAGULANT 04/27/2015 Ot 627.1 04/27/2015 Ot 787.91 04/27/2015 Ot 627.1 04/27/2015 Ot V76.12 04/27/2015 JOYCE LANG DO Ot 722.52 04/27/2015 LANGJOYCE MCFADDEN DO Ot V76.12 04/27/2015 MALUVICK GRADUATE STUDIES DEAN Ot 789.00 04/27/2015 Ot 285.9 04/27/2015 Ot 368.9 04/27/2015 Ot 723.1 04/27/2015 Ot 780.2 04/27/2015 Ot 780.4 04/27/2015 Ot 782.0 04/27/2015 Ot 790.29 04/27/2015 Ot V58.69 04/27/2015 Ot 225.2 04/27/2015 Ot 241.0 04/27/2015 CONNIE GALARZA, JOYCE Youssef Ot 241.0 04/27/2015 MICHELE GALARZA, HASMUKH Torres Ot 225.2 04/27/2015 MICHELE GALARZA, HASMUKH J Ot 278.00 04/27/2015 MICHELE GALARZA, HASMUKH J Ot 786.50 04/27/2015 MICHELE GALARZA, HASMUKH Torres Ot V17.3 04/27/2015 MICHELE GALARZA, HASMUKH Torres Ot 225.2 04/27/2015 MICHELE GALARZA, HASMUKH J Ot 278.00 04/27/2015 MICHELE GALARZA, HASMUKH J Ot 786.50 04/27/2015 MICHELE GALARZA, HASMUKH Torres Ot V17.3 04/27/2015 DIAMOND SHELBY A FAMILY PRACTITIONER Ot 721.2 04/27/2015 AMRIT DPM, GENEVIEVE Q Ot 726.72 04/27/2015 ANAND GALARZA, ODETTE Orta Ot I82.402 04/27/2015 GLADYS BLAKE APRN Ot N95.0 04/27/2015 GLADYS BLAKE APRN Ot R10.31 07/02/2015 ATTILA VERA GRADUATE STUDIES DEAN Ot I87.002 07/02/2015 ATTLIA VERA GRADUATE STUDIES DEAN Ot M72.2 07/02/2015 ATTILA VERA GRADUATE STUDIES DEAN Ot Z79.01 07/18/2015 GLADYS BLAKE GRADUATE STUDIES DEAN Ot N95.0 07/18/2015 GLADYS BLAKE GRADUATE STUDIES DEAN Ot R10.31 07/20/2015 ZOFIA DURBIN MD Ot I26.99 07/20/2015 ZOFIA DURBIN MD Ot I82.402 07/24/2015 Ot 627.1 07/24/2015 Ot 787.91 07/24/2015 Ot 627.1 07/24/2015 Ot V76.12 07/24/2015 LANG DO, JOYCE Ot 722.52 07/24/2015 LANG DO, JOYCE Ot V76.12 07/24/2015 MALU VICKSHANNAN Hercules APRN Ot 789.00 07/24/2015 Ot 285.9 07/24/2015 Ot 368.9 07/24/2015 Ot 723.1 07/24/2015 Ot 780.2 07/24/2015 Ot 780.4 07/24/2015 Ot 782.0 07/24/2015 Ot 790.29 07/24/2015 Ot V58.69 07/24/2015 Ot 225.2 07/24/2015 Ot 241.0 07/24/2015 CONNIE GALARZA, JOYCE Youssef Ot 241.0 07/24/2015 RAMAKRISHNA GALARZA, ZOFIA Ot I26.99 07/24/2015 RAMAKRISHNA GALARZA, ZOFIA Ot I82.402 07/24/2015 MICHELE GALARZA, HASMUKH Torres Ot 225.2 07/24/2015 MICHELE GALARZA, HASMUKH J Ot 278.00 07/24/2015 MICHELE GALARZA, HASMUKH Torres Ot 786.50 07/24/2015 MICHELE GALARZA, HASMUKH Torres Ot V17.3 07/24/2015 MICHELE GALARZA, HASMUKH Torres Ot 225.2 07/24/2015 MICHELE GALARZA, HASMUKH Torres Ot 278.00 07/24/2015 MICHELE GALARZA, HASMUKH Torres Ot 786.50 07/24/2015 MICHELE GALARZA, HASMUKH Torres Ot V17.3 07/24/2015 DIAMOND SHELBY FAMILY PRACTITIONER Ot 721.2 07/24/2015 AMRIT DPM, GENEVIEVE Q Ot 726.72 07/24/2015 ANAND GALARZA, ODETTE Orta Ot I82.402 07/24/2015 GLADYS BLAKE APRN Ot N95.0 07/24/2015 GLADYS BLAKE APRN Ot R10.31 08/13/2015 RAMAKRISHNA GALARZA, ZOFIA Ot I26.99 OTHER PULMONARY EMBOLISM WITHOUT ACUTE C 08/13/2015 RAMAKRISHNA GALARZA, ZOFIA Ot I82.402 ACUTE EMBOLISM AND THOMBOS UNSP DEEP VEI 09/19/2015 Ot 627.1 POSTMENOPAUSAL BLEEDING 09/19/2015 Ot 787.91 DIARRHEA 09/19/2015 Ot 627.1 POSTMENOPAUSAL BLEEDING 09/19/2015 Ot V76.12 OTH SCREEN MAMMO-MALIGN NEOPLASM OF [place] 09/19/2015 JOYCE LANG DO Ot 722.52 LUMB/LUMBOSAC DISC DEGEN 09/19/2015 JOYCE LANG DO Ot V76.12 OTH SCREEN MAMMO-MALIGN NEOPLASM OF [place] 09/19/2015 VICK TORIBIO GRADUATE STUDIES DEAN Ot 789.00 ABDOMINAL PAIN, UNSPECIFIED SITE 09/19/2015 Ot 285.9 ANEMIA NOS 09/19/2015 Ot 368.9 VISUAL DISTURBANCE NOS 09/19/2015 Ot 723.1 CERVICALGIA 09/19/2015 Ot 780.2 SYNCOPE AND COLLAPSE 09/19/2015 Ot 780.4 DIZZINESS AND GIDDINESS 09/19/2015 Ot 782.0 SKIN SENSATION DISTURB 09/19/2015 Ot 790.29 OTHER ABNORMAL GLUCOSE 09/19/2015 Ot V58.69 OT MED,LT, CURRENT USE 09/19/2015 Ot 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 09/19/2015 Ot 241.0 NONTOX UNINODULAR GOITER 09/19/2015 CONNIE GALARZA, JOYCE Youssef Ot 241.0 NONTOX UNINODULAR GOITER 09/19/2015 HASMUKH BAUTISTA MD Ot 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 09/19/2015 HASMUKH BAUTISTA MD Ot 278.00 OBESITY, NOS 09/19/2015 HASMUKH BAUTISTA MD Ot 786.50 CHEST PAIN NOS 09/19/2015 HASMUKH BAUTITSA MD Ot V17.3 FAM HX-ISCHEM HEART DIS 09/19/2015 HASMUKH BAUTISTA MD Ot 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 09/19/2015 HASMUKH BAUTISTA MD Ot 278.00 OBESITY, NOS 09/19/2015 HASMUKH BAUTISTA MD Ot 786.50 CHEST PAIN NOS 09/19/2015 HASMUKH BAUTISTA MD Ot V17.3 FAM HX-ISCHEM HEART DIS 09/19/2015 DIAMOND SHELBY FAMILY PRACTITIONER Ot 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 SPONDYLOSIS 09/19/2015 AMRIT DPM, GENEVIEVE Q Ot 726.72 TIBIALIS TENDINITIS 09/19/2015 ANAND GALARZA, ODETTE Orta Ot I82.402 ACUTE EMBOLISM AND THOMBOS UNSP DEEP VEI 09/19/2015 GLADYS BLAKE GRADUATE STUDIES DEAN Ot N95.0 POSTMENOPAUSAL BLEEDING 09/19/2015 GLADYS BLAKE GRADUATE STUDIES DEAN Ot R10.31 RIGHT LOWER QUADRANT PAIN 09/19/2015 RAMAKRISHNA GALARZA, AYALAANIBAL Ot I26.99 OTHER PULMONARY EMBOLISM WITHOUT ACUTE C 09/19/2015 RAMAKRISHNA GALARZA, AYALAANIBAL Ot I82.402 ACUTE EMBOLISM AND THOMBOS UNSP DEEP VEI 09/20/2015 JAQUELINE COLLINS FAMILY PRACTITIONER Ot M41.9 SCOLIOSIS, UNSPECIFIED 09/20/2015 JAQUELINE COLLINS FAMILY PRACTITIONER Ot M62.81 MUSCLE WEAKNESS (GENERALIZED) 09/20/2015 OLIVIA GALARZA, MILEY Bryan Ot R60.0 LOCALIZED EDEMA 09/26/2015 JAQUELINE COLLINS FAMILY PRACTITIONER Ot M41.9 SCOLIOSIS, UNSPECIFIED 09/26/2015 JAQUELINE COLLINS FAMILY PRACTITIONER Ot M51.36 OTHER INTERVERTEBRAL DISC DEGENERATION, 09/26/2015 JAQUELINE COLLINS FAMILY PRACTITIONER Ot M62.81 MUSCLE WEAKNESS (GENERALIZED) 10/06/2015 MILEY BAKER MD Ot R60.0 LOCALIZED EDEMA 10/06/2015 JAQUELINE COLLINS FAMILY PRACTITIONER Ot M41.9 SCOLIOSIS, UNSPECIFIED 10/06/2015 JOSE RAFAEL COLLINSA FAMILY PRACTITIONER Ot M51.36 OTHER INTERVERTEBRAL DISC DEGENERATION, 10/06/2015 JOSE RAFAEL COLLINSA FAMILY PRACTITIONER Ot M62.81 MUSCLE WEAKNESS (GENERALIZED) 10/10/2015 MILEY BAKER MD Ot R60.0 LOCALIZED EDEMA 10/18/2015 MILEY BAKER MD Ot E04.1 NONTOXIC SINGLE THYROID NODULE 10/25/2015 JAQUELINE COLLINS FAMILY PRACTITIONER Ot M41.9 SCOLIOSIS, UNSPECIFIED 10/25/2015 JAQUELINE COLLINS FAMILY PRACTITIONER Ot M51.36 OTHER INTERVERTEBRAL DISC DEGENERATION, 10/25/2015 JAQUELINE COLLINS FAMILY PRACTITIONER Ot M62.81 MUSCLE WEAKNESS (GENERALIZED) 10/25/2015 MILEY BAKER MD Ot E04.1 NONTOXIC SINGLE THYROID NODULE 02/04/2016 ATTILA VERA GRADUATE STUDIES DEAN Ot M47.26 OTHER SPONDYLOSIS WITH RADICULOPATHY, AIDA 02/04/2016 ATTILA VERA GRADUATE STUDIES DEAN Ot M54.5 LOW BACK PAIN 02/04/2016 Ot 627.1 POSTMENOPAUSAL BLEEDING 02/04/2016 Ot 787.91 DIARRHEA 02/04/2016 Ot 627.1 POSTMENOPAUSAL BLEEDING 02/04/2016 Ot V76.12 OTH SCREEN MAMMO-MALIGN NEOPLASM OF [place] 02/04/2016 PRECIOUS GRUBBS JOYCE Ot 722.52 LUMB/LUMBOSAC DISC DEGEN 02/04/2016 PRECIOUS GRUBBS JOYCE Ot V76.12 OTH SCREEN MAMMO-MALIGN NEOPLASM OF [place] 02/04/2016 VICK TORIBIO GRADUATE STUDIES DEAN Ot 789.00 ABDOMINAL PAIN, UNSPECIFIED SITE 02/04/2016 Ot 285.9 ANEMIA NOS 02/04/2016 Ot 368.9 VISUAL DISTURBANCE NOS 02/04/2016 Ot 723.1 CERVICALGIA 02/04/2016 Ot 780.2 SYNCOPE AND COLLAPSE 02/04/2016 Ot 780.4 DIZZINESS AND GIDDINESS 02/04/2016 Ot 782.0 SKIN SENSATION DISTURB 02/04/2016 Ot 790.29 OTHER ABNORMAL GLUCOSE 02/04/2016 Ot V58.69 OT MED,LT, CURRENT USE 02/04/2016 Ot 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 02/04/2016 Ot 241.0 NONTOX UNINODULAR GOITER 02/04/2016 CONNIE GALARZA, JYOCE Youssef Ot 241.0 NONTOX UNINODULAR GOITER 02/04/2016 HASMUKH BAUTISTA MD Ot 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 02/04/2016 HASMUKH BAUTISTA MD Ot 278.00 OBESITY, NOS 02/04/2016 HASMUKH BAUTISTA MD Ot 786.50 CHEST PAIN NOS 02/04/2016 HASMUKH BAUTISTA MD Ot V17.3 FAM HX-ISCHEM HEART DIS 02/04/2016 HASMUKH BAUTISTA MD Ot 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 02/04/2016 HASMUKH BAUTISTA MD Ot 278.00 OBESITY, NOS 02/04/2016 HASMUKH BAUTISTA MD Ot 786.50 CHEST PAIN NOS 02/04/2016 HASMUKH BAUTISTA MD Ot V17.3 FAM HX-ISCHEM HEART DIS 02/04/2016 DIAMOND SHELBY FAMILY PRACTITIONER Ot 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 SPONDYLOSIS 02/04/2016 AMRIT DPM, GENEVIEVE Q Ot 726.72 TIBIALIS TENDINITIS 02/04/2016 ANAND GALARZA, ODETTE Orta Ot I82.402 ACUTE EMBOLISM AND THOMBOS UNSP DEEP VEI 02/04/2016 GLADYS BLAKE GRADUATE STUDIES DEAN Ot N95.0 POSTMENOPAUSAL BLEEDING 02/04/2016 GLADYS BLAKE GRADUATE STUDIES DEAN Ot R10.31 RIGHT LOWER QUADRANT PAIN 02/04/2016 RAMAKRISHNA GALARZA, AYALAANIBAL Ot I26.99 OTHER PULMONARY EMBOLISM WITHOUT ACUTE C 02/04/2016 RAMAKRISHNA GALARZA, [facility] Ot I82.402 ACUTE EMBOLISM AND THOMBOS UNSP DEEP VEI 02/04/2016 JAQUELINE COLLINS Ot M41.9 SCOLIOSIS, UNSPECIFIED 02/04/2016 JAQUELINE COLLINSP Ot M62.81 MUSCLE WEAKNESS (GENERALIZED) 02/04/2016 OLIVIA GALARZA, MILEY Bryan Ot R60.0 LOCALIZED EDEMA 02/04/2016 JAQUELINE COLLINS Ot M41.9 SCOLIOSIS, UNSPECIFIED 02/04/2016 JAQUELINE COLLINS FAMILY PRACTITIONER Ot M51.36 OTHER INTERVERTEBRAL DISC DEGENERATION, 02/04/2016 JAQUELINE COLLINS FAMILY PRACTITIONER Ot M62.81 MUSCLE WEAKNESS (GENERALIZED) 02/04/2016 OLIVIA GALARZA, MILEY Bryan Ot E04.1 NONTOXIC SINGLE THYROID NODULE 02/06/2016 ATTILA VERA GRADUATE STUDIES DEAN Ot M47.26 OTHER SPONDYLOSIS WITH RADICULOPATHY, AIDA 02/06/2016 ATTILA VERA GRADUATE STUDIES DEAN Ot M54.5 LOW BACK PAIN 02/11/2016 ATTILA VERA GRADUATE STUDIES DEAN Ot M25.551 PAIN IN RIGHT HIP 02/12/2016 ATTILA VERA GRADUATE STUDIES DEAN Ot M25.551 PAIN IN RIGHT HIP 02/21/2016 Ot 627.1 POSTMENOPAUSAL BLEEDING 02/21/2016 Ot 787.91 DIARRHEA 02/21/2016 Ot 627.1 POSTMENOPAUSAL BLEEDING 02/21/2016 Ot V76.12 OTH SCREEN MAMMO-MALIGN NEOPLASM OF [place] 02/21/2016 JOYCE LANG DO Ot 722.52 LUMB/LUMBOSAC DISC DEGEN 02/21/2016 JOYCE LANG DO Ot V76.12 OTH SCREEN MAMMO-MALIGN NEOPLASM OF [place] 02/21/2016 VICK TORIBIO GRADUATE STUDIES DEAN Ot 789.00 ABDOMINAL PAIN, UNSPECIFIED SITE 02/21/2016 Ot 285.9 ANEMIA NOS 02/21/2016 Ot 368.9 VISUAL DISTURBANCE NOS 02/21/2016 Ot 723.1 CERVICALGIA 02/21/2016 Ot 780.2 SYNCOPE AND COLLAPSE 02/21/2016 Ot 780.4 DIZZINESS AND GIDDINESS 02/21/2016 Ot 782.0 SKIN SENSATION DISTURB 02/21/2016 Ot 790.29 OTHER ABNORMAL GLUCOSE 02/21/2016 Ot V58.69 OTH MED,LT, CURRENT USE 02/21/2016 Ot 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 02/21/2016 Ot 241.0 NONTOX UNINODULAR GOITER 02/21/2016 CONNIE GALARZA, JOYCE Youssef Ot 241.0 NONTOX UNINODULAR GOITER 02/21/2016 HASMUKH BAUTISTA MD Ot 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 02/21/2016 HASMUKH BAUTISTA MD Ot 278.00 OBESITY, NOS 02/21/2016 HASMUKH BAUTISTA MD Ot 786.50 CHEST PAIN NOS 02/21/2016 HASMUKH BAUTISTA MD Ot V17.3 FAM HX-ISCHEM HEART DIS 02/21/2016 HASMUKH BAUTISTA MD Ot 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 02/21/2016 HASMUKH BAUTISTA MD Ot 278.00 OBESITY, NOS 02/21/2016 HASMUKH BAUTISTA MD Ot 786.50 CHEST PAIN NOS 02/21/2016 HASMUKH BAUTISTA MD Ot V17.3 FAM HX-ISCHEM HEART DIS 02/21/2016 DIAMOND SHELBY FAMILY PRACTITIONER Ot 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 SPONDYLOSIS 02/21/2016 AMRIT DPM, GENEVIEVE Q Ot 726.72 TIBIALIS TENDINITIS 02/21/2016 ANAND GALARZA, ODETTE Orta Ot I82.402 ACUTE EMBOLISM AND THOMBOS UNSP DEEP VEI 02/21/2016 GLADYS BLAKE APRN Ot N95.0 POSTMENOPAUSAL BLEEDING 02/21/2016 GLADYS BLAKE APRN Ot R10.31 RIGHT LOWER QUADRANT PAIN 02/21/2016 RAMAKRISHNA GALARZA, ZOFIA Ot I26.99 OTHER PULMONARY EMBOLISM WITHOUT ACUTE C 02/21/2016 ZOFIA DURBIN MD Ot I82.402 ACUTE EMBOLISM AND THOMBOS UNSP DEEP VEI 02/21/2016 JAQUELINE COLLINSP Ot M41.9 SCOLIOSIS, UNSPECIFIED 02/21/2016 JAQUELINE COLLINS FAMILY PRACTITIONER Ot M62.81 MUSCLE WEAKNESS (GENERALIZED) 02/21/2016 OLIVIA GALARZA, MILEY Bryan Ot R60.0 LOCALIZED EDEMA 02/21/2016 JAQUELINE COLLINS FAMILY PRACTITIONER Ot M41.9 SCOLIOSIS, UNSPECIFIED 02/21/2016 JAQUELINE COLLINS FAMILY PRACTITIONER Ot M51.36 OTHER INTERVERTEBRAL DISC DEGENERATION, 02/21/2016 JAQUELINE COLLINS FAMILY PRACTITIONER Ot M62.81 MUSCLE WEAKNESS (GENERALIZED) 02/21/2016 OLIVIA GALARZA, MILEY Bryan Ot E04.1 NONTOXIC SINGLE THYROID NODULE 03/18/2016 ANAND GALARZA, ODETTE Orta Ot M79.662 PAIN IN LEFT LOWER LEG 03/18/2016 ANAND GALARZA, ODETTE Orta Ot M79.89 OTHER SPECIFIED SOFT TISSUE DISORDERS 04/15/2016 ODETTE MICHEL MD Ot M79.662 PAIN IN LEFT LOWER LEG 04/15/2016 ODETTE MICHEL MD N Ot M79.89 OTHER SPECIFIED SOFT TISSUE DISORDERS 05/19/2016 ELHAM MARTINO MD Ot E04.1 NONTOXIC SINGLE THYROID NODULE 06/17/2016 ELHAM MARTINO MD Ot E04.1 NONTOXIC SINGLE THYROID NODULE 07/25/2016 ELHAM MARTINO MD Ot E04.1 NONTOXIC SINGLE THYROID NODULE 07/25/2016 Ot 627.1 POSTMENOPAUSAL BLEEDING 07/25/2016 Ot 787.91 DIARRHEA 07/25/2016 Ot 627.1 POSTMENOPAUSAL BLEEDING 07/25/2016 Ot V76.12 OTH SCREEN MAMMO-MALIGN NEOPLASM OF [place] 07/25/2016 JOYCE LANG DO Ot 722.52 LUMB/LUMBOSAC DISC DEGEN 07/25/2016 JOYCE LANG DO Ot V76.12 OTH SCREEN MAMMO-MALIGN NEOPLASM OF [place] 07/25/2016 VICK TORIBIO APRN Ot 789.00 ABDOMINAL PAIN, UNSPECIFIED SITE 07/25/2016 Ot 285.9 ANEMIA NOS 07/25/2016 Ot 368.9 VISUAL DISTURBANCE NOS 07/25/2016 Ot 723.1 CERVICALGIA 07/25/2016 Ot 780.2 SYNCOPE AND COLLAPSE 07/25/2016 Ot 780.4 DIZZINESS AND GIDDINESS 07/25/2016 Ot 782.0 SKIN SENSATION DISTURB 07/25/2016 Ot 790.29 OTHER ABNORMAL GLUCOSE 07/25/2016 Ot V58.69 OTH MED,LT, CURRENT USE 07/25/2016 Ot 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 07/25/2016 Ot 241.0 NONTOX UNINODULAR GOITER 07/25/2016 CONNIE GALARZA, JOYCE P Ot 241.0 NONTOX UNINODULAR GOITER 07/25/2016 MICHELE GALARZA, HASMUKH Torres Ot 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 07/25/2016 HASMUKH BAUTISTA MD Ot 278.00 OBESITY, NOS 07/25/2016 MICHELE GALARZA, HASMUKH Torres Ot 786.50 CHEST PAIN NOS 07/25/2016 HASMUKH BAUTISTA MD Ot V17.3 FAM HX-ISCHEM HEART DIS 07/25/2016 HASMUKH BAUTISTA MD Ot 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 07/25/2016 HASMUKH BAUTISTA MD Ot 278.00 OBESITY, NOS 07/25/2016 HASMUKH BAUTISTA MD Ot 786.50 CHEST PAIN NOS 07/25/2016 HASMUKH BAUTISTA MD Ot V17.3 FAM HX-ISCHEM HEART DIS 07/25/2016 DIAMOND SHELBY FAMILY PRACTITIONER Ot 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 SPONDYLOSIS 07/25/2016 AMRIT DPM, GENEVIEVE Q Ot 726.72 TIBIALIS TENDINITIS 07/25/2016 ANAND GALARZA, ODETTE Otra Ot I82.402 ACUTE EMBOLISM AND THOMBOS UNSP DEEP VEI 07/25/2016 GLADYS BLAKE GRADUATE STUDIES DEAN Ot N95.0 POSTMENOPAUSAL BLEEDING 07/25/2016 GLADYS BLAKE GRADUATE STUDIES DEAN Ot R10.31 RIGHT LOWER QUADRANT PAIN 07/25/2016 RAMAKRISHNA GALARZA, ZOFIA Ot I26.99 OTHER PULMONARY EMBOLISM WITHOUT ACUTE C 07/25/2016 RAMAKRISHNA GALARZA, ZOFIA Ot I82.402 ACUTE EMBOLISM AND THOMBOS UNSP DEEP VEI 07/25/2016 JAQUELINE COLLINS Ot M41.9 SCOLIOSIS, UNSPECIFIED 07/25/2016 JAQUELINE COLLINSP Ot M62.81 MUSCLE WEAKNESS (GENERALIZED) 07/25/2016 OLIVIA GALARZA, MILEY Bryan Ot R60.0 LOCALIZED EDEMA 07/25/2016 JAQUELINE COLLINS Ot M41.9 SCOLIOSIS, UNSPECIFIED 07/25/2016 JAQUELINE COLLINS Ot M51.36 OTHER INTERVERTEBRAL DISC DEGENERATION, 07/25/2016 JAQUELINE COLLINS Ot M62.81 MUSCLE WEAKNESS (GENERALIZED) 07/25/2016 OLIVIA GALARZA, MILEY Bryan Ot E04.1 NONTOXIC SINGLE THYROID NODULE 07/25/2016 ANAND GALARZA, ODETTE Orta Ot M79.662 PAIN IN LEFT LOWER LEG 07/25/2016 ANAND GALARZA, ODETTE Orta Ot M79.89 OTHER SPECIFIED SOFT TISSUE DISORDERS 07/25/2016 GUNNER GALARZA, ELHAM Hercules Ot E04.1 NONTOXIC SINGLE THYROID NODULE 08/01/2016 GUNNER GALARZA, ELHAM Hercules Ot E04.1 NONTOXIC SINGLE THYROID NODULE 11/27/2016 Ot 627.1 POSTMENOPAUSAL BLEEDING 11/27/2016 Ot 787.91 DIARRHEA 11/27/2016 Ot 627.1 POSTMENOPAUSAL BLEEDING 11/27/2016 Ot V76.12 OTH SCREEN MAMMO-MALIGN NEOPLASM OF [place] 11/27/2016 JOYCE LANG DO Ot 722.52 LUMB/LUMBOSAC DISC DEGEN 11/27/2016 JOYCE LANG DO Ot V76.12 OTH SCREEN MAMMO-MALIGN NEOPLASM OF [place] 11/27/2016 IVCK TORIBIO APRN Ot 789.00 ABDOMINAL PAIN, UNSPECIFIED SITE 11/27/2016 Ot 285.9 ANEMIA NOS 11/27/2016 Ot 368.9 VISUAL DISTURBANCE NOS 11/27/2016 Ot 723.1 CERVICALGIA 11/27/2016 Ot 780.2 SYNCOPE AND COLLAPSE 11/27/2016 Ot 780.4 DIZZINESS AND GIDDINESS 11/27/2016 Ot 782.0 SKIN SENSATION DISTURB 11/27/2016 Ot 790.29 OTHER ABNORMAL GLUCOSE 11/27/2016 Ot V58.69 OTH MED,LT, CURRENT USE 11/27/2016 Ot 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 11/27/2016 Ot 241.0 NONTOX UNINODULAR GOITER 11/27/2016 CONNIE GALARZA, JOYCE Youssef Ot 241.0 NONTOX UNINODULAR GOITER 11/27/2016 MICHELE GALARZA, HASMUKH Torres Ot 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 11/27/2016 HASMUKH BAUTISTA MD Ot 278.00 OBESITY, NOS 11/27/2016 MICHELE GALARZA, HASMUKH Torres Ot 786.50 CHEST PAIN NOS 11/27/2016 HASMUKH BAUTISTA MD Ot V17.3 FAM HX-ISCHEM HEART DIS 11/27/2016 HASMUKH BAUTISTA MD Ot 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 11/27/2016 HASMUKH BAUTISTA MD Ot 278.00 OBESITY, NOS 11/27/2016 MICHELE GALARZA, HASMUKH Torres Ot 786.50 CHEST PAIN NOS 11/27/2016 HASMUKH BAUTISTA MD Ot V17.3 FAM HX-ISCHEM HEART DIS 11/27/2016 DIAMOND SHELBY FAMILY PRACTITIONER Ot 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 SPONDYLOSIS 11/27/2016 AMRIT WRIGHT, GENEVIEVE Lloyd Ot 726.72 TIBIALIS TENDINITIS 11/27/2016 ANAND GALARZA, ODETTE Orta Ot I82.402 ACUTE EMBOLISM AND THOMBOS UNSP DEEP VEI 11/27/2016 GLADYS BLAKE GRADUATE STUDIES DEAN Ot N95.0 POSTMENOPAUSAL BLEEDING 11/27/2016 GLADYS BLAKE APRN Ot R10.31 RIGHT LOWER QUADRANT PAIN 11/27/2016 RAMAKRISHNA GALARZA, ZOFIA Ot I26.99 OTHER PULMONARY EMBOLISM WITHOUT ACUTE C 11/27/2016 RAMAKRISHNA GALARZA, ZOFIA Ot I82.402 ACUTE EMBOLISM AND THOMBOS UNSP DEEP VEI 11/27/2016 JAQUELINE COLLINS Ot M41.9 SCOLIOSIS, UNSPECIFIED 11/27/2016 JAQUELINE COLLINS Ot M62.81 MUSCLE WEAKNESS (GENERALIZED) 11/27/2016 MILEY BAKER MD Ot R60.0 LOCALIZED EDEMA 11/27/2016 JAQUELINE COLLINS Ot M41.9 SCOLIOSIS, UNSPECIFIED 11/27/2016 JAQUELINE COLLINS Ot M51.36 OTHER INTERVERTEBRAL DISC DEGENERATION, 11/27/2016 JAQUELINE COLLINS Ot M62.81 MUSCLE WEAKNESS (GENERALIZED) 11/27/2016 MILEY BAKER MD Ot E04.1 NONTOXIC SINGLE THYROID NODULE 11/27/2016 ANAND GALARZA, ODETTE Orta Ot M79.662 PAIN IN LEFT LOWER LEG 11/27/2016 ANAND GALARZA, ODETTE Orta Ot M79.89 OTHER SPECIFIED SOFT TISSUE DISORDERS 11/27/2016 GUNNER GALARZA, ELHAM R Ot E04.1 NONTOXIC SINGLE THYROID NODULE 12/16/2016 ANAND GALARZA, ODETTE Orta Ot M79.662 PAIN IN LEFT LOWER LEG 12/16/2016 ANAND GALARZA, ODETTE Orta Ot M79.89 OTHER SPECIFIED SOFT TISSUE DISORDERS 04/03/2017 Ot 627.1 POSTMENOPAUSAL BLEEDING 04/03/2017 Ot 787.91 DIARRHEA 04/03/2017 Ot 627.1 POSTMENOPAUSAL BLEEDING 04/03/2017 Ot V76.12 OTH SCREEN MAMMO-MALIGN NEOPLASM OF [place]EPHANIA 04/03/2017 LANG DO, JOYCE Ot 722.52 LUMB/LUMBOSAC DISC DEGEN 04/03/2017 LANGJOYCE MCFADDEN DO Ot V76.12 OTH SCREEN MAMMO-MALIGN NEOPLASM OF [place]PHANIA 04/03/2017 VICK TORIBIO GRADUATE STUDIES DEAN Ot 789.00 ABDOMINAL PAIN, UNSPECIFIED SITE 04/03/2017 Ot 285.9 ANEMIA NOS 04/03/2017 Ot 368.9 VISUAL DISTURBANCE NOS 04/03/2017 Ot 723.1 CERVICALGIA 04/03/2017 Ot 780.2 SYNCOPE AND COLLAPSE 04/03/2017 Ot 780.4 DIZZINESS AND GIDDINESS 04/03/2017 Ot 782.0 SKIN SENSATION DISTURB 04/03/2017 Ot 790.29 OTHER ABNORMAL GLUCOSE 04/03/2017 Ot V58.69 OTH MED,LT, CURRENT USE 04/03/2017 Ot 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 04/03/2017 Ot 241.0 NONTOX UNINODULAR GOITER 04/03/2017 CONNIE GALARZA, JOYCE Youssef Ot 241.0 NONTOX UNINODULAR GOITER 04/03/2017 HASMUKH BAUTISTA MD Ot 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 04/03/2017 HASMUKH BAUTISTA MD Ot 278.00 OBESITY, NOS 04/03/2017 HASMUKH BAUTISTA MD Ot 786.50 CHEST PAIN NOS 04/03/2017 HASMUKH BAUTISTA MD Ot V17.3 FAM HX-ISCHEM HEART DIS 04/03/2017 HASMUKH BAUTISTA MD Ot 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 04/03/2017 HASMUKH BAUTISTA MD Ot 278.00 OBESITY, NOS 04/03/2017 MICHELE GALARZA, HASMUKH Torres Ot 786.50 CHEST PAIN NOS 04/03/2017 MICHELE GALARZA, HASMUKH Torres Ot V17.3 FAM HX-ISCHEM HEART DIS 04/03/2017 DIAMOND SHELBY Jamaal FAMILY PRACTITIONER Ot 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 SPONDYLOSIS 04/03/2017 AMRIT DPM, GENEVIEVE Q Ot 726.72 TIBIALIS TENDINITIS 04/03/2017 ANAND GALARZA, ODETTE Orta Ot I82.402 ACUTE EMBOLISM AND THOMBOS UNSP DEEP VEI 04/03/2017 GLADYS BLAKE APRN Ot N95.0 POSTMENOPAUSAL BLEEDING 04/03/2017 GLADYS BLAKE GRADUATE STUDIES DEAN Ot R10.31 RIGHT LOWER QUADRANT PAIN 04/03/2017 RAMAKRISHNA GALARZA, ZOFIA Ot I26.99 OTHER PULMONARY EMBOLISM WITHOUT ACUTE C 04/03/2017 RAMAKRISHNA GALARZA, ZOFIA Ot I82.402 ACUTE EMBOLISM AND THOMBOS UNSP DEEP VEI 04/03/2017 JAQUELINE COLLINS Ot M41.9 SCOLIOSIS, UNSPECIFIED 04/03/2017 JAQUELINE COLLINS Ot M62.81 MUSCLE WEAKNESS (GENERALIZED) 04/03/2017 OLIVIA GALARZA, MILEY Bryan Ot R60.0 LOCALIZED EDEMA 04/03/2017 JAQUELINE COLLINS Ot M41.9 SCOLIOSIS, UNSPECIFIED 04/03/2017 JAQUELINE COLLINS Ot M51.36 OTHER INTERVERTEBRAL DISC DEGENERATION, 04/03/2017 JAQUELINE COLLINS Ot M62.81 MUSCLE WEAKNESS (GENERALIZED) 04/03/2017 OLIVIA GALARZA, MILEY Bryan Ot E04.1 NONTOXIC SINGLE THYROID NODULE 04/03/2017 ODETTE MICHEL MD Ot M79.662 PAIN IN LEFT LOWER LEG 04/03/2017 ODETTE MICHEL MD Ot M79.89 OTHER SPECIFIED SOFT TISSUE DISORDERS 04/03/2017 GUNNER GALARZA, ELHAM Hercules Ot E04.1 NONTOXIC SINGLE THYROID NODULE 04/03/2017 LANCE HOLCOMB MD Ot J02.9 ACUTE PHARYNGITIS, UNSPECIFIED 04/03/2017 LANCE HOLCOMB MD Ot J40 BRONCHITIS, NOT SPECIFIED ACUTE OR CH 04/03/2017 LANCE HOLCOMB MD Ot Z86.012 PERSONAL HISTORY OF BENIGN CARCINOID EFRA 04/03/2017 LANCE HOLCOMB MD Ot Z86.711 PERSONAL HISTORY OF PULMONARY EMBOLISM 04/03/2017 LANCE HOLCOMB MD Ot Z86.718 PERSONAL HISTORY OF OTHER VENOUS THROMBO 04/10/2017 LANCE HOLCOMB MD Ot J02.9 ACUTE PHARYNGITIS, UNSPECIFIED 04/10/2017 LANCE HOLCOMB MD Ot J40 BRONCHITIS, NOT SPECIFIED ACUTE OR CH 04/10/2017 LANCE HOLCOMB MD Ot Z86.012 PERSONAL HISTORY OF BENIGN CARCINOID EFRA 04/10/2017 LANCE HOLCOMB MD Ot Z86.711 PERSONAL HISTORY OF PULMONARY EMBOLISM 04/10/2017 LANCE HOLCOMB MD Ot Z86.718 PERSONAL HISTORY OF OTHER VENOUS THROMBO 04/12/2017 LANCE HOLCOMB MD Ot J02.9 ACUTE PHARYNGITIS, UNSPECIFIED 04/12/2017 LANCE HOLCOMB MD Ot J40 BRONCHITIS, NOT SPECIFIED ACUTE OR CH 04/12/2017 LANCE HOLCOMB MD Ot Z86.012 PERSONAL HISTORY OF BENIGN CARCINOID EFRA 04/12/2017 LANCE HOLCOMB MD Ot Z86.711 PERSONAL HISTORY OF PULMONARY EMBOLISM 04/12/2017 LANCE HOLCOMB MD Ot Z86.718 PERSONAL HISTORY OF OTHER VENOUS THROMBO 05/06/2017 TREY ROSE Ot Z12.31 ENCNTR SCREEN MAMMOGRAM FOR MALIGNANT NE 05/07/2017 TREY ROSE Ot R92.8 OTH ABN AND INCONCLUSIVE FINDINGS ON DX 05/07/2017 TREY ROSE Ot Z12.2 ENCNTR SCREEN FOR MALIGNANT NEOPLASM OF 05/07/2017 TREY ROSE Ot Z87.891 PERSONAL HISTORY OF NICOTINE DEPENDENCE 05/11/2017 TREY ROSE Ot Z12.31 ENCNTR SCREEN MAMMOGRAM FOR MALIGNANT NE 05/15/2017 TREY ROSE Ot R92.8 OTH ABN AND INCONCLUSIVE FINDINGS ON DX 05/15/2017 TREY ROSE Ot Z12.2 ENCNTR SCREEN FOR MALIGNANT NEOPLASM OF 05/15/2017 TREY ROSE Ot Z87.891 PERSONAL HISTORY OF NICOTINE DEPENDENCE 05/21/2017 TREY ROSE Ot Z12.31 ENCNTR SCREEN MAMMOGRAM FOR MALIGNANT NE Procedures Code Description [place] [address] ROUTINE VENIPUNCTURE 01/25/[address] ABDOMEN & PELVIS W/O CONTRAST 01/25/2014 56655 UA W/ CULTURE IF INDICATED 01/25/2014 28367 SED/ESR RATE (IN HOUSE) 01/25/2014 2234599 GFR CALC (RESULT ONLY) 01/25/2014 69329 CMP 01/25/2014 53854 CBC 01/25/2014 Results Test Result Range Complete blood count (CBC) with automated white blood cell (WBC) differential - 02/11/16 14:35 Blood leukocytes automated count (number/volume) 10.2 10*3/uL 4.3-11.0 Blood erythrocytes automated count (number/volume) 4.64 10*6/uL 4.35-5.85 Venous blood hemoglobin measurement (mass/volume) 14.6 g/dL 11.5-16.0 Blood hematocrit (volume fraction) 44 % 35-52 Automated erythrocyte mean corpuscular volume 94 [foz_us] 80-99 Automated erythrocyte mean corpuscular hemoglobin (mass per erythrocyte) 32 pg 25-34 Automated erythrocyte mean corpuscular hemoglobin concentration measurement ( mass/volume) 33 g/dL 32-36 Automated erythrocyte distribution width ratio 12.2 % 10.0-14.5 Automated blood platelet count (count/volume) 331 10*3/uL 130-400 Automated blood platelet mean volume measurement 9.9 [foz_us] 7.4-10.4 Automated blood neutrophils/100 leukocytes 48 % 42-75 Automated blood lymphocytes/100 leukocytes 41 % 12-44 Blood monocytes/100 leukocytes 10 % 0-12 Automated blood eosinophils/100 leukocytes 2 % 0-10 Automated blood basophils/100 leukocytes 0 % 0-10 Blood neutrophils automated count (number/volume) 4.9 10*3 1.8-7.8 Blood lymphocytes automated count (number/volume) 4.2 10*3 1.0-4.0 Blood monocytes automated count (number/volume) 1.0 10*3 0.0-1.0 Automated eosinophil count 0.2 10*3/uL 0.0-0.3 Automated blood basophil count (count/volume) 0.0 10*3/uL 0.0-0.1 CBC With Differential/Platelet - 03/12/16 08:35 WBC 7.9 x10E3/uL 3.4-10.8 RBC 4.69 x10E6/uL 3.77-5.28 Hemoglobin 14.8 g/dL 11.1-15.9 Hematocrit 44.1 % 34.0-46.6 MCV 94 fL 79-97 MCH 31.6 pg 26.6-33.0 MCHC 33.6 g/dL 31.5-35.7 RDW 13.1 % 12.3-15.4 Platelets 324 x10E3/uL 150-379 Neutrophils 36 % Lymphs 53 % Monocytes 9 % Eos 2 % Basos 0 % Neutrophils (Absolute) 2.8 x10E3/uL 1.4-7.0 Lymphs (Absolute) 4.1 x10E3/uL 0.7-3.1 Monocytes(Absolute) 0.7 x10E3/uL 0.1-0.9 Eos (Absolute) 0.2 x10E3/uL 0.0-0.4 Baso (Absolute) 0.0 x10E3/uL 0.0-0.2 Immature Granulocytes 0 % Immature Grans (Abs) 0.0 x10E3/uL 0.0-0.1 Comp. Metabolic Panel (14) - 03/12/16 08:35 Glucose, Serum 106 mg/dL 65-99 BUN 19 mg/dL 8-27 Creatinine, Serum 0.93 mg/dL 0.57-1.00 eGFR If NonAfricn Am 67 mL/min/1.73 >59 eGFR If Africn Am 77 mL/min/1.73 >59 BUN/Creatinine Ratio 20 11-26 Sodium, Serum 143 mmol/L 136-144 Potassium, Serum 4.7 mmol/L 3.5-5.2 Chloride, Serum 104 mmol/L 97-106 Carbon Dioxide, Total 26 mmol/L 18-29 Calcium, Serum 9.9 mg/dL 8.7-10.3 Protein, Total, Serum 6.6 g/dL 6.0-8.5 Albumin, Serum 4.2 g/dL 3.6-4.8 Globulin, Total 2.4 g/dL 1.5-4.5 A/G Ratio 1.8 1.1-2.5 Bilirubin, Total 0.4 mg/dL 0.0-1.2 Alkaline Phosphatase, S 82 IU/L 39-117 AST (SGOT) 20 IU/L 0-40 ALT (SGPT) 25 IU/L 0-32 Lipid Panel - 03/12/16 08:35 Cholesterol, Total 303 mg/dL 100-199 Triglycerides 209 mg/dL 0-149 HDL Cholesterol 54 mg/dL >39 VLDL Cholesterol Mao 42 mg/dL 5-40 LDL Cholesterol Calc 207 mg/dL 0-99 Comment: Comment Influenza virus A and B antigen detection - 04/03/17 09:48 FLU RESULT NEGATIVE FOR INFLUENZA A AND B ANTIGENS BY [facility] Complete blood count (CBC) with automated white blood cell (WBC) differential - 04/03/17 09:55 Blood leukocytes automated count (number/volume) 23.1 10*3/uL 4.3-11.0 Blood erythrocytes automated count (number/volume) 4.67 10*6/uL 4.35-5.85 Venous blood hemoglobin measurement (mass/volume) 14.8 g/dL 11.5-16.0 Blood hematocrit (volume fraction) 43 % 35-52 Automated erythrocyte mean corpuscular volume 92 [foz_us] 80-99 Automated erythrocyte mean corpuscular hemoglobin (mass per erythrocyte) 32 pg 25-34 Automated erythrocyte mean corpuscular hemoglobin concentration measurement ( mass/volume) 34 g/dL 32-36 Automated erythrocyte distribution width ratio 11.9 % 10.0-14.5 Automated blood platelet count (count/volume) 333 10*3/uL 130-400 Automated blood platelet mean volume measurement 10.3 [foz_us] 7.4-10.4 Automated blood neutrophils/100 leukocytes 82 % 42-75 Automated blood lymphocytes/100 leukocytes 10 % 12-44 Blood monocytes/100 leukocytes 8 % 0-12 Automated blood eosinophils/100 leukocytes 0 % 0-10 Automated blood basophils/100 leukocytes 0 % 0-10 Blood neutrophils automated count (number/volume) 19.0 10*3 1.8-7.8 Blood lymphocytes automated count (number/volume) 2.3 10*3 1.0-4.0 Blood monocytes automated count (number/volume) 1.8 10*3 0.0-1.0 Automated eosinophil count 0.0 10*3/uL 0.0-0.3 Automated blood basophil count (count/volume) 0.0 10*3/uL 0.0-0.1 Blood lactic acid measurement (moles/volume) - 04/03/17 09:55 Blood lactic acid measurement (moles/volume) 1.42 mmol/L 0.50-2.00 Comprehensive metabolic panel - 04/03/17 09:55 Serum or plasma sodium measurement (moles/volume) 137 mmol/L 135-145 Serum or plasma potassium measurement (moles/volume) 4.4 mmol/L 3.6-5.0 Serum or plasma chloride measurement (moles/volume) 104 mmol/L 98-107 Carbon dioxide 19 mmol/L 21-32 Serum or plasma anion gap determination (moles/volume) 14 mmol/L 5-14 Serum or plasma urea nitrogen measurement (mass/volume) 12 mg/dL 7-18 Serum or plasma creatinine measurement (mass/volume) 0.93 mg/dL 0.60-1.30 Serum or plasma urea nitrogen/creatinine mass ratio 13 NRG Serum or plasma creatinine measurement with calculation of estimated glomerular filtration rate > NRG Serum or plasma glucose measurement (mass/volume) 154 mg/dL 70-105 Serum or plasma calcium measurement (mass/volume) 9.7 mg/dL 8.5-10.1 Serum or plasma total bilirubin measurement (mass/volume) 0.5 mg/dL 0.1-1.0 Serum or plasma alkaline phosphatase measurement (enzymatic activity/volume) 105 U/L 40-136 Serum or plasma aspartate aminotransferase measurement (enzymatic activity/ volume) 27 U/L 5-34 Serum or plasma alanine aminotransferase measurement (enzymatic activity/volume ) 30 U/L 0-55 Serum or plasma protein measurement (mass/volume) 7.7 g/dL 6.4-8.2 Serum or plasma albumin measurement (mass/volume) 4.2 g/dL 3.2-4.5 Blood manual differential performed detection - 04/03/17 09:55 Blood monocytes/100 leukocytes 3 % NRG Manual blood segmented neutrophils/100 leukocytes 82 % NRG Manual blood lymphocytes/100 leukocytes 15 % NRG Blood erythrocyte morphology finding identification NORMAL NRG Bacterial blood culture - 04/03/17 09:55 Bacterial blood culture NG NRG Bacterial blood culture - 04/03/17 10:23 Bacterial blood culture NG NRG VITAMIN D, 25-H - 09/01/17 11:31 VITAMIN D,25-OH,TOTAL,IA 28 ng/mL 30-100 Encounters ACCT No. Visit Date/Time Discharge Status Pt. Type Provider Facility Loc./Unit Complaint [id number] 01/25/2014 10:45:00 01/25/2014 23:59:59 CLS Outpatient MALU GRADUATE STUDIES DEANVICK [id number] 03/13/2016 08:44:00 Document Registration [id number] 10/06/2017 09:20:00 10/06/2017 23:59:59 CLS Outpatient ELHAM MARTINO [facility] [id number] 09/01/2017 09:00:00 Document Registration [id number] 05/05/2017 10:51:00 05/05/2017 23:59:59 CLS Outpatient TREY ROSE [facility] RAD SCREENING [id number] 05/05/2017 10:49:00 05/05/2017 23:59:59 CLS Outpatient TREY ROSE [facility] RAD SCREENING [id number] 04/03/2017 09:38:00 04/03/2017 13:38:00 DIS Emergency LANCE HOLCOMB MD [facility] ER SORE THROAT,NAUSEA [id number] 05/16/2016 11:09:00 05/16/2016 23:59:59 CLS Outpatient ELHAM MARTINO MD [facility] RAD F/U PREVIOUS NODULE [id number] 03/14/2016 10:32:00 03/14/2016 23:59:59 CLS Outpatient ODETTE MICHEL MD [facility] RAD PAIN OF LT CALF, SWELLING OF LT LOWER EXTREMITY [id number] 02/11/2016 12:06:00 02/11/2016 15:17:00 DIS Emergency ATTILA VERA APRN [facility] ER RIGHT SIDE PAIN [id number] 02/04/2016 14:01:00 02/04/2016 16:04:00 DIS Emergency ATTILA VERA APRN [facility] ER BACK PAIN [id number] 10/03/2015 11:09:00 10/03/2015 23:59:59 CLS Outpatient MILEY BAKER MD [facility] RAD THYROID NODULE [id number] 09/22/2015 15:00:00 09/22/2015 23:59:59 CLS Outpatient JAQUELINE COLLINS [facility] RAD LEFT LEG WEAKNESS, SCOLIOSIS [id number] 09/19/2015 10:48:00 09/19/2015 23:59:59 CLS Outpatient JAQUELINE COLLINS [facility] RAD LEFT LEG WEAKNESS, SCOLIOSIS [id number] 09/18/2015 10:30:00 09/18/2015 23:59:59 CLS Outpatient MILEY BAKER MD [facility] RAD ABD PAIN, LE EDEMA [id number] 08/14/2015 00:09:00 08/14/2015 23:59:59 CLS Preadmit RAMAKRISHNA GALARZA, ZOFIA [facility] ONC [id number] 06/13/2015 13:51:00 08/13/2015 00:01:00 DIS Outpatient RAMAKRISHNA GALARZA, ZOFIA [facility] ONC [id number] 04/27/2015 15:08:00 05/01/2015 17:06:00 DIS Emergency ATTILA VERA GRADUATE STUDIES DEAN [facility] ER L LEG AND KNEE PAIN [id number] 04/27/2015 11:27:00 04/27/2015 12:10:00 DIS Emergency PHOENIX GALARZA, MARICRUZ Howe [facility] ER LEFT LEG/BOTH KNEES PAIN [id number] 04/03/2015 13:06:00 04/03/2015 23:59:59 CLS Outpatient GLADYS BLAKE GRADUATE STUDIES DEAN [facility] RAD POSTMENOPAUSAL BLEEDING,RLQ PAIN [id number] 02/19/2015 10:01:00 02/19/2015 23:59:59 CLS Outpatient ANAND GALARZA, ODETTE Orta [facility] RAD DVT [id number] 12/15/2014 10:27:00 12/15/2014 23:59:59 CLS Outpatient GENEVIEVE MARCUS DPM Q [facility] RAD ACHILLIES TENDON TEAR [id number] 12/07/2014 13:40:00 12/07/2014 23:59:59 CLS Outpatient HASMUKH BAUTISTA MD [facility] CARD CP,MENINGIOMA, [id number] 11/14/2014 15:22:00 11/14/2014 17:14:00 DIS Emergency ZHANG GALARZA, LANCE Sim [facility] ER CP [id number] 10/19/2014 06:42:00 10/19/2014 08:45:00 DIS Emergency DEWEY GALARZA, DINO Bryan [facility] ER CP,DIZZY [id number] 10/18/2014 11:42:00 10/18/2014 16:51:00 DIS Emergency RADHA SOLIS [facility] ER LEFT LEG PAIN/ SWELLING [id number] 10/13/2014 11:01:00 10/13/2014 23:59:59 CLS Outpatient DIAMOND SHELBY [facility] RAD DJD OF THORACIC SPINE [id number] 10/03/2014 19:30:00 10/03/2014 20:48:00 DIS Emergency ATTILA VERA APRN [facility] ER BACK PAIN [id number] 09/21/2014 14:07:00 09/21/2014 23:59:59 CLS Outpatient MICHELE GALARZA, HASMUKH Torres [facility] RAD CP SYNDROME,MENIGINOMA [id number] 08/04/2014 10:34:00 08/04/2014 23:59:59 CLS Outpatient CONNIE GALARZA, JOYCE Youssef [facility] RAD RIGHT THYROID NODULE [id number] 01/30/2014 12:37:00 01/30/2014 23:59:59 CLS Outpatient VICK TORIBIO GRADUATE STUDIES DEAN [facility] RAD ABD PAIN [id number] 11/15/2013 10:13:00 11/15/2013 23:59:59 CLS Outpatient JOYCE LANG DO [facility] RAD ROUTINE,LUMBAR RADICULOPATHY [id number] 06/07/2013 09:33:00 06/07/2013 12:10:00 DIS Emergency PHOENIX GALARZA, MARICRUZ Howe [facility] ER LEFT CALF PAIN [id number] 11/05/2017 08:00:00 PEN Preadmit ALBINO FARIAS DO [facility] ENDO SCREENING/REFLUX [id number] 06/16/2014 15:10:00 Document Registration [id number] 06/09/2014 10:03:00 Document Registration [id number] 05/31/2014 06:54:00 Document Registration [id number] 01/21/2012 12:51:00 Document Registration [id number] 10/31/2011 09:04:00 Document Registration [id number] 10/16/2009 15:20:00 Document Registration
[2017-11-02] MEDS ORDERED: ASPIRIN 81 MG CHEW (CHILDREN'S ASA) PO ONE (10:15)
[2017-11-02 10:20] LABS: BASOPHILS % (AUTO) 0 % (0-10); EOSINOPHILS # (AUTO) 0.1 10^3/uL (0.0-0.3); EOSINOPHILS % (AUTO) 2 % (0-10); HEMATOCRIT 44 % (35-52); HEMOGLOBIN 14.9 G/DL (11.5-16.0); LYMPHOCYTES # (AUTO) 3.1 X 10^3 (1.0-4.0); LYMPHOCYTES % (AUTO) 44 % (12-44); MEAN CORPUSCULAR HEMOGLOBIN 32 PG (25-34); MEAN CORPUSCULAR HGB CONC 34 G/DL (32-36); MEAN CORPUSCULAR VOLUME 94 FL (80-99); MONOCYTES # (AUTO) 0.8 X 10^3 (0.0-1.0); MONOCYTES % (AUTO) 11 % (0-12); NEUTROPHILS # (AUTO) 3.1 X 10^3 (1.8-7.8); NEUTROPHILS % (AUTO) 44 % (42-75); PLATELET COUNT 350 10^3/uL (130-400); RED BLOOD COUNT 4.72 10^6/uL (4.35-5.85); RED CELL DISTRIBUTION WIDTH 12.5 % (10.0-14.5); WHITE BLOOD COUNT 7.1 10^3/uL (4.3-11.0)
[2017-11-02 10:26] LABS: PROTHROMBIN TIME PATIENT 12.9 SEC (12.2-14.7)
[2017-11-02 10:32] LABS: ALANINE AMINOTRANSFERASE 18 U/L (0-55); ALBUMIN 4.3 GM/DL (3.2-4.5); ALKALINE PHOSPHATASE 82 U/L (40-136); AMYLASE 74 U/L (25-125); BILIRUBIN,TOTAL 0.5 MG/DL (0.1-1.0); BUN/CREATININE RATIO 17; CALCIUM 9.9 MG/DL (8.5-10.1); CARBON DIOXIDE 26 MMOL/L (21-32); CHLORIDE 109 MMOL/L (98-107); CREATININE SERUM 0.92 MG/DL (0.60-1.30); GFR ESTIMATED > 60; GLUCOSE 112 MG/DL (70-105); LIPASE 16 U/L (8-78); MAGNESIUM 2.3 MG/DL (1.8-2.4); POTASSIUM 4.2 MMOL/L (3.6-5.0); SODIUM 142 MMOL/L (135-145); TOTAL PROTEIN 7.2 GM/DL (6.4-8.2)
[2017-11-02 10:38] LABS: MYOGLOBIN SERUM 42.3 NG/ML (10.0-92.0)
--- NOTE | 2017-11-02 10:38 | ED General ---
General Chief Complaint: Abdominal/GI Problems Stated Complaint: LT CALF SWOLLEN/ABD PAIN Nursing Triage Note: PT CO OF ABD PAIN, L UPPER ABD STARTED YESTERDAY, TENDER TO TOUCH RATES 3-10. PT ALSO CO OF L CALF PAIN AND SWELLING NOTICED YESTERDAY STATES HAS HX OF BLOOD CLOT IN L LEG AND PULMONARY EMBOLI. RATES CALF PAIN / Nursing Sepsis Screen: No Definite Risk Source of Information: Patient Exam Limitations: No Limitations History of Present Illness Date Seen by Provider: Nov 02, 2017 Time Seen by Provider: 10:00 Initial Comments Here with complaint of left leg pain and swelling. Has history of blood clots and is concerned about that. Also has some epigastric abdominal pain is been going on for a couple of weeks but worse over the past couple days. Denies nausea or vomiting. Denies breathing problems. Timing/Duration: 1 Week, Getting Worse Severity: Moderate Associated Systoms: No Chest Pain, No Cough, No Fever/Chills, No Nausea/ Vomiting, No Shortness of Air, No Weakness Allergies and Home Medications Allergies Coded Allergies: No Known Drug Allergies (Unverified , 10/29/17) Home Medications Calcium Carbonate 200 Mg Tab.chew, 200 MG PO PRN, (Reported) Ranitidine HCl 150 Mg Tablet, 150 MG PO DAILY, (Reported) Patient Home Medication List Home Medication List Reviewed: Yes Review of Systems Constitutional: see HPI; No chills, No fever EENTM: no symptoms reported Respiratory: no symptoms reported Cardiovascular: no symptoms reported Gastrointestinal: see HPI, abdominal pain (epigastric); No constipation, No diarrhea, No nausea, No vomiting Genitourinary: no symptoms reported Musculoskeletal: see HPI; No joint pain; muscle pain; No muscle stiffness Skin: No change in color, No lesions Psychiatric/Neurological: No Symptoms Reported All Other Systems Reviewed Negative Unless Noted: Yes Past Hkdcqbc-Qjstsh-Msliim Hx Past Med/Social Hx: Reviewed Nursing Past Med/Soc Hx Patient Social History Alcohol Use: Denies Use Recreational Drug Use: No Smoking Status: Former Smoker Former Smoker, Quit: Oct 29, 1992 Recent Foreign Travel: No Contact w/Someone Who Travel: No Recent Infectious Disease Expo: No Recent Hopitalizations: No Physical Abuse: No Sexual Abuse: No Seasonal Allergies Seasonal Allergies: No Past Medical History Surgeries: Yes (R KNEE A CHILD) Respiratory: Yes Pulmonary Embolism Cardiac: Yes Deep Vein Thrombosis Neurological: Yes (DX IN MAY 2014 MONITOR IT ONLY) Brain Tumor Reproductive Disorders: No Sexually Transmitted Disease: No HIV/AIDS: No Genitourinary: No Gastrointestinal: Yes Gastroesophageal Reflux Musculoskeletal: Yes Arthritis, Chronic Back Pain Endocrine: Yes (NODULE ON THYROID) Loss of Vision: Bilateral Hearing Impairment: Denies Cancer: Yes (BASAL CELL) Skin Did You Recieve Any Treatments: Yes Psychosocial: No Nursing Suicide Risk Score: 0 Integumentary: No Blood Disorders: Yes (pe and dvt) Adverse Reaction/Blood Tranf: No (N/A) Family Medical History Reviewed Nursing Family Hx No Pertinent Family Hx Physical Exam Vital Signs Vital Signs - First Documented 11/02/17 09:30 Temp 97.2 Pulse 96 Resp 18 B/P (MAP) 134/95 (108) Pulse Ox 98 Capillary Refill : Less Than 3 Seconds Height, Weight, BMI Height: 5'1.00" Weight: 170lbs. 0.0oz. [id number]; 32.1 BMI Method:Stated General Appearance: No Apparent Distress, WD/WN HEENT: PERRL/EOMI, Pharynx Normal Neck: Non Tender, Supple Respiratory: Chest Non Tender, Lungs Clear, Normal Breath Sounds Cardiovascular: Regular Rate, Rhythm, No Murmur Gastrointestinal: Soft, Tenderness (epigastric) Back: Normal Inspection, No CVA Tenderness, No Vertebral Tenderness Extremity: Normal Range of Motion, Non Tender Neurologic/Psychiatric: Alert, Oriented x3 Skin: Normal Color, Warm/Dry Progress/Results/Core Measures Suspected Sepsis Recent Fever Within 48 Hours: No Infection Criteria Present: None New/Unexplained Altered Menta: No Sepsis Screen: No Definite Risk SIRS Temperature:97.2 Pulse: 96 Respiratory Rate: 18 Laboratory Tests 11/02/17 09:43: White Blood Count 7.1 Blood Pressure 134 /95 Mean: 108 Laboratory Tests 11/02/17 09:43: Creatinine 0.92, INR Comment 1.0, Platelet Count 350, Total Bilirubin 0.5 Results/Orders Lab Results Laboratory Tests Test 11/02/17 09:43 Range/Units White Blood Count 7.1 4.3-11.0 10^3/uL Red Blood Count 4.72 4.35-5.85 10^6/uL Hemoglobin 14.9 11.5-16.0 G/DL Hematocrit 44 35-52 % Mean Corpuscular Volume 94 80-99 FL Mean Corpuscular Hemoglobin 32 25-34 PG Mean Corpuscular Hemoglobin Concent 34 32-36 G/DL Red Cell Distribution Width 12.5 10.0-14.5 % Platelet Count 350 130-400 10^3/uL Mean Platelet Volume 10.0 7.4-10.4 FL Neutrophils (%) (Auto) 44 42-75 % Lymphocytes (%) (Auto) 44 12-44 % Monocytes (%) (Auto) 11 0-12 % Eosinophils (%) (Auto) 2 0-10 % Basophils (%) (Auto) 0 0-10 % Neutrophils # (Auto) 3.1 1.8-7.8 X 10^3 Lymphocytes # (Auto) 3.1 1.0-4.0 X 10^3 Monocytes # (Auto) 0.8 0.0-1.0 X 10^3 Eosinophils # (Auto) 0.1 0.0-0.3 10^3/uL Basophils # (Auto) 0.0 0.0-0.1 10^3/uL Prothrombin Time 12.9 12.2-14.7 SEC INR Comment 1.0 0.8-1.4 Activated Partial Thromboplast Time 26 24-35 SEC Sodium Level 142 135-145 MMOL/L Potassium Level 4.2 3.6-5.0 MMOL/L Chloride Level 109 H 98-107 MMOL/L Carbon Dioxide Level 26 21-32 MMOL/L Anion Gap 7 5-14 MMOL/L Blood Urea Nitrogen 16 7-18 MG/DL Creatinine 0.92 0.60-1.30 MG/DL Estimat Glomerular Filtration Rate > 60 BUN/Creatinine Ratio 17 Glucose Level 112 H 70-105 MG/DL Calcium Level 9.9 8.5-10.1 MG/DL Magnesium Level 2.3 1.8-2.4 MG/DL Total Bilirubin 0.5 0.1-1.0 MG/DL Aspartate Amino Transf (AST/SGOT) 20 5-34 U/L Alanine Aminotransferase (ALT/SGPT) 18 0-55 U/L Alkaline Phosphatase 82 40-136 U/L Myoglobin 42.3 10.0-92.0 NG/ML Troponin I < 0.30 <0.30 NG/ML Total Protein 7.2 6.4-8.2 GM/DL Albumin 4.3 3.2-4.5 GM/DL Amylase Level 74 25-125 U/L Lipase 16 8-78 U/L My Orders Orders - DINO PALOMO MD Cbc With Automated Diff (11/02/17 10:10) Magnesium (11/02/17 10:10) Chest 1 View, Ap/Pa Only (11/02/17 10:10) Ekg Tracing (11/02/17 10:10) Cardiac Profile 1 (11/02/17 10:10) Comprehensive Metabolic Panel (11/02/17 10:10) Myoglobin Serum (11/02/17 10:10) Protime With Inr (11/02/17 10:10) Partial Thromboplastin Time (11/02/17 10:10) O2 (11/02/17 10:10) Monitor-Rhythm Ecg Trace Only (11/02/17 10:10) Lipid Panel (11/03/17 06:00) Aspirin Chewable Tablet (Baby Aspirin Ch (11/02/17 10:15) Saline Lock/Iv-Start (11/02/17 10:10) Lipase (11/02/17 10:10) Amylase (11/02/17 10:10) Us Venous Lower Ext Lt (11/02/17 10:10) Medications Given in ED Current Medications Medications Dose Ordered Sig/Nisa Route Start Time Stop Time Status Last Admin Dose Admin Aspirin 324 mg ONCE ONCE PO 11/02/17 10:15 11/02/17 10:16 DC 11/02/17 10:33 324 MG Vital Signs/I&O 11/02/17 09:30 Temp 97.2 Pulse 96 Resp 18 B/P (MAP) 134/95 (108) Pulse Ox 98 Capillary Refill : Less Than 3 Seconds Blood Pressure Mean: 108 Progress Note : Progress Note Seen and evaluated. IV, labs, EKG and chest x-ray ordered. ASA 324 mg by mouth given. Ultrasound left lower extremity ordered. Monitor patient. 1125: Overall negative workup and exam. Patient feeling better. She does have history of reflux and this may be worsened. She has EGD and colonoscopy scheduled for . We discussed ftun-raw-fdcvoix treatment for reflux for higher level treatment using omeprazole until further instructions from Dr. Martínez. Discharged home with return precautions. Patient verbalize understanding instructions and agreement with plan. ECG Initial ECG Impression Date: Nov 02, 2017 Initial ECG Impression Time: 10:29 Initial ECG Rate: 78 Initial ECG Rhythm: Normal Sinus Initial ECG Impression: Normal Initial ECG Comparisson: Unchanged Comment Sinus rhythm with normal axis. No evidence of ST elevation OK. Unchanged from previous of 14 November 2014. Interpreted by me. Diagnostic Imaging Diagonstic Imaging: Xray Plain Films/CT/US/NM/MRI: chest Comments VIA [place], [place] NAME: MIAN WESTON [facility] REC#: [id number] PT STATUS: REG ER : 1955 PHYSICIAN: DINO PALOMO MD ADMIT DATE: 11/02/17/ER Draft Date of Exam:11/02/17 CHEST 1 VIEW, AP/PA ONLY INDICATION: Abdominal pain. COMPARISON: 04/03/2017. FINDINGS: Upright portable view of the chest is obtained. Heart size is normal. The pulmonary vessels appear unremarkable. There is no pneumothorax, mediastinal widening or pleural fluid. The lungs are clear. IMPRESSION: Negative chest. Dictated on workstation # [id number] Dict: 11/02/17 1037 Trans: 11/02/[address] [place] [address] [id number] Interpreted by: GEN BAKER DO Electronically signed by: Diagonstic Imaging: Ultrasound Plain Films/CT/US/NM/MRI: leg Comments NAME: MIAN WESTON [facility] REC#: [id number] PT STATUS: REG ER : 1955 PHYSICIAN: DINO PALOMO MD ADMIT DATE: 11/02/17/ER Signed Date of Exam: 11/02/17 US VENOUS LOWER EXT LT PROCEDURE: US left lower extremity venous. TECHNIQUE: Multiple real-time grayscale images were obtained over the left lower extremity in various projections. Additional duplex Doppler and color Doppler images were also obtained. INDICATION: Left leg pain. FINDINGS: The left common femoral, superficial femoral, popliteal veins and tibial veins demonstrate normal response to compression, augmentation, and Valsalva. There are no abnormal left lower extremity fluid collections or masses. IMPRESSION: No evidence of deep venous thrombosis in the left lower extremity. Dictated by: Dictated on workstation # [id number] Dict: 11/02/17 1108 Trans: 11/02/17 1113 Interpreted by: BEATRIZ PETERS MD Electronically signed by: BEATRIZ PETERS MD 11/02/17 1113 Departure Impression Primary Impression: Leg pain Additional Impression: Epigastric abdominal pain Disposition: 01 HOME, SELF-CARE Condition: Improved Departure-Patient Inst. Decision time for Depature: 11:32 Referrals: ELHAM MARTINO MD (PCP/Family) Primary Care Physician Patient Instructions: Acute Abdomen (Belly Pain), Adult (DC) Add. Discharge Instructions: All discharge instructions reviewed with patient and/or family. Voiced understanding. Follow-up with your Dr. in a few days for recheck. Keep appointment for upper and lower endoscopy as previously scheduled. You may initiate omeprazole 20 mg 1 tablet daily as needed for stomach upset symptoms. You might need to stay on this long-term but you can talk with Dr. Farias about that. Return for worse pain, fever, vomiting, weakness, breathing problems or other concerns as needed. Copy Copies To 1: ALBINO FARIAS TIMOTHY D MD Nov 02, 2017 10:38
--- NOTE | 2017-11-02 11:12 | Diagnostic Imaging Report ---
PROCEDURE: US left lower extremity venous. TECHNIQUE: Multiple real-time grayscale images were obtained over the left lower extremity in various projections. Additional duplex Doppler and color Doppler images were also obtained. INDICATION: Left leg pain. FINDINGS: The left common femoral, superficial femoral, popliteal veins and tibial veins demonstrate normal response to compression, augmentation, and Valsalva. There are no abnormal left lower extremity fluid collections or masses. IMPRESSION: No evidence of deep venous thrombosis in the left lower extremity. Dictated by: Dictated on workstation # [id number]
[2017-11-02 11:39] VITALS: BP 134/95
== END 2017-11-02 11:39 | disposition home or self-care (01) ==
LOC: EDUNIT# 09:09 → ER 09:11
DX: M79.605 Pain in left leg (principal); R10.13 Epigastric pain; K21.9 Gastro-esophageal reflux disease without esophagitis; Z85.828 Personal history of other malignant neoplasm of skin; Z87.891 Personal history of nicotine dependence; Z86.718 Personal history of other venous thrombosis and embolism
CPT/HCPCS: 36415; 71045; 80053; 82150; 83690; 83735; 83874; 84484; 85025; 85610; 85730; 93005; 93041

== ENCOUNTER 2017-11-05 08:47 | Day surgery (SDC) | payer MEDICAID ==
[~2017-11-05] VITALS: Ht 154.9 cm; Wt 77.1 kg
--- OUTSIDE RECORDS SUMMARY | 2017-11-05 08:50 | XMS REPORT | Clinical Summary ---
Author Author [facility] Organization [facility] Address Unknown Phone Unavailable Care Team Providers Care Electrical Instrument Maker Name Role Phone Ifeoma Anderson MD PCP Sade Helm MD Unavailable Source Comments Some departments are not documenting in the electronic medical record. If you do not see the information that you expected, contact Release of Information in the Health Information Management department at [phone] for further assistance in locating additional records.[facility] Allergies No Known Allergies Current Medications No [...]
--- OUTSIDE RECORDS SUMMARY | 2017-11-05 08:53 | XMS REPORT ---
Author Author ELAHM MARTINO Organization [facility] Address [address] [place] [address] Care Team Providers Care National Business Director Name Role Phone ELHAM MARTINO Unavailable PROBLEMS Type Condition ICD9-CM Code ZAM30-DU Code Onset Dates Condition Status SNOMED Code Problem Postmenopausal bleeding N95.0 Active 85323333 Problem Scoliosis, unspecified scoliosis type, unspecified spinal region M41.9 Active 969231979 Problem Left leg weakness M62.81 Active 456028933 Problem Major depressive disorder, single episode, mild F32.0 Active 52806580 Problem Reflux esophagitis K21.0 Active 139454710 Problem Other chronic pain G89.29 Active 38051681 Problem Low back pain M54.5 Active 126839808 Problem Dysphagia, unspecified type R13.10 Active 59150118 Problem Pure hypercholesterolemia E78.00 Active 304653649 Problem Meningioma D32.9 Active 203650660 Problem History of DVT (deep vein thrombosis) Z86.718 Active 099379823 Problem Thyroid nodule E04.1 Active 037108209 Problem Prediabetes R73.03 Active 705412842 Problem Personal history of pulmonary embolism Z86.711 Active 794184955 ALLERGIES Substance Reaction Event Type Date Status Sulfamethoxazole questionable allergy Drug Allergy Feb, Active ENCOUNTERS Encounter Location Date Diagnosis [facility] [id number] [place] [phone] Sep, Reflux esophagitis K21.0 and Dysphagia, unspecified type R13.10 [facility] [id number] [place] [address] Sep, [facility] [address] [place] [phone] August, Insect bite (nonvenomous), right lower leg, initial encounter S80.861A and Bitten or stung by nonvenomous insect and other nonvenomous arthropods, initial encounter W57.XXXA [address] [address] August, Thyroid nodule E04.1 ; Prediabetes R73.03 ; Pure hypercholesterolemia E78.00 ; Low back pain M54.5 and Need for hepatitis C screening test Z11.[address] [address] 04 Apr, 2017 Screening for breast cancer Z12.[address] [address] 29 Mar, 2017 Well woman exam (no gynecological exam) Z00.00 ; Pure hypercholesterolemia E78.00 ; Prediabetes R73.03 ; Acute bronchitis, unspecified organism J20.9 ; Thyroid nodule E04.1 ; Encounter for screening for lung cancer Z12.2 and Encounter for screening for malignant neoplasm of colon Z12.[address] [address] Mar, [address] [address] 15 Feb, 2017 Moderate single current episode of major depressive disorder F32.1 ; Major depressive disorder, single episode, mild F32.0 and Other chronic pain G89.[address] [address] 13 Feb, 2017 Reflux esophagitis K21.0 ; Dysphagia, unspecified type R13.10 ; Bereavement Z63.4 ; Low back pain M54.5 and Other chronic pain G89.[address] [address] 13 May, 2016 Fever, unspecified fever cause R50.9 and Sinus pressure J34.[address] [address] 07 May, 2016 Thyroid nodule E04.1 [facility] [id number] [place] [address] May, [place] [address] [address] Apr, Dizziness R42 ; Thyroid nodule E04.1 and History of DVT ( deep vein thrombosis) Z86.718 [place] [address] [address] Apr, [place] [address] [address] Mar, Other chronic pain G89.29 and Moderate single current episode of major depressive disorder F32.1 [place] [address] [address] Mar, [place] [address] [address] Mar, [place] [address] [address] Mar, Pain of left calf M79.662 and Swelling of left lower extremity M79.89 [place] [address] [address] Feb, Low back pain M54.[address] [address] Feb, Pure hypercholesterolemia E78.00 [place] [address] [address] Feb, Low back pain M54.5 ; Other chronic pain G89.29 and Pure hypercholesterolemia E78.00 [place] [address] [address] August, Left leg weakness M62.81 and Scoliosis, unspecified scoliosis type, unspecified spinal region M41.[address] [address] August, Left leg weakness M62.81 and Scoliosis of thoracic spine, unspecified scoliosis type M41.9 [facility] [id number] [place] [address] August, [place] [id number] [place] [address]- [address] 17 May, 2015 [facility] [id number] [place] [phone] Apr, Dental examination Z01.20 [place] [address] [address] Apr, [place] [address] [address] Apr, DVT (deep venous thrombosis), left I82.402 ; Pain in right knee M25.561 ; Pain in left knee M25.562 ; Meningioma D32.9 and Family history of coronary artery disease Z82.49 [place] [id number] [place] [address]- [address] 15 Mar, 2015 Well woman exam Z01.419 [place] [address] [address] Mar, [place] [id number] [place] [address]- [address] Feb, [place] [id number] [place] [address]41- [address] Feb, Well woman exam Z01.419 ; Encounter [...] F32.9 and Abdominal cramping R10.9 [place] [address] [place] [address] Feb, [facility] [id number] [place] [address]- [address] Feb, [facility] [id number] [place] [address]- [address] Jan, DVT (deep venous thrombosis), unspecified laterality I82.409 and Chest pain, unspecified chest pain type R07.9 [facility] [address] [address] Jan, Insect bite W57.XXXA and DVT (deep venous thrombosis), left I82.402 [facility] [address] [id number] Jan, Dental examination Z01.20 [place] [id number] [place] [address]- [address] Jan, Infected tooth K04.7 [facility] [address] [address] Dec, [facility] [id number] [place] [phone] Dec, Dental examination V72.2 [place] [id number] [place] [address] Dec, Candidal skin infection 112.3 [place] [id number] [place] [address] 03454- 8947 Dec, Hyperlipidemia 272.4 [facility] [id number] [place] [address] Nov, Venous thromboembolism (VTE) 453.9 ; Meningioma 225.2 and Thyroid nodule 241.0 [facility] [id number] [place] [address] [phone] Oct, [facility] [id number] [place] [address] 04349- [address]365 Oct, [place] [address] [address] Sep, 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 [facility] [id number] [place] [address]- [address] Sep, Upper back pain 724.5 and Chronic cough 786.2 [facility] [address] [place] [address] [phone] August, Conjunctivitis 372.30 [facility] [id number] [place] [address] 60[address]- [address] Jul, [facility] [id number] [place] [address]37- [address] Jul, [facility] [id number] [place] [address] 73548- 8[address] Jan, [facility] [id number] [place] [address] 90446- [address] Jan, [facility] [id number] [place] [address] 48261- [address] Jan, [facility] [id number] [place] [address] 83254- 4316 Jan, [facility] [address] [place] [address] 59470- [address] Jan, [facility] [address] [place] [address] 36748- 3096 Jan, [facility] [address] [address] Mar, [facility] [id number] [place] [address]01- [address] Mar, IMMUNIZATIONS No Known Immunizations SOCIAL HISTORY Never Assessed REASON FOR VISIT wellness visit per progress notes-tcuppettRN, -Mid to upper back pain recently that is constant PLAN OF CARE Activity Details Follow Up 2 Months with Selin xiong Reason: VITAL SIGNS Height 61 in 2017-02-23 Weight 177.7 lbs 2017-02-23 Temperature 97.8 degrees Fahrenheit 2017-02-23 Heart Rate 84 bpm 2017-02-23 Respiratory Rate 20 2017-02-23 BMI 33.57 kg/m2 2017-02-23 Blood pressure systolic 138 mmHg 2017-02-23 Blood pressure diastolic 90 mmHg 2017-02-23 MEDICATIONS Medication Instructions Dosage Frequency Start Date End Date Duration Status Aleve 220 MG Not-Taking Omeprazole 20 mg Orally Once a day 1 capsule 24h Feb, 30 day(s ) Active Zantac 150 Maximum Strength 150 MG Orally Once a day 1 tablet at bedtime 24h Active Atorvastatin Calcium 20 MG Orally Once a day 1 tablet 24h Mar, Not-Taking Tums 500 MG Orally Once a day 1 tablet 24h Active Cymbalta 30 MG Orally Twice a day 1 capsule 12h Mar, 30 day(s) Not-Taking RESULTS Name Result Date Reference Range H PYLORI (IN HOUSE) 2017-02-23 H. PYLORI negative Control + Lot # [id number] Exp date 02/2017 PROCEDURES Procedure Date Ordered Result Body Site IMMUNOASSAY,INFECTIOUS AGENT Feb 23, 2017 INSTRUCTIONS MEDICATIONS ADMINISTERED No Known Medications [...]
[2017-11-05] MEDS ORDERED: LACTATED RINGERS 1,000 ML IV STA (08:57)
[2017-11-05] MEDS ORDERED: HURRICAINE EXT TUBE (BENZOCAINE) XX PRN (09:00)
[2017-11-05] MEDS ORDERED: D5 LR IV SOLUTION 1,000 ML IV ONE (09:27)
[2017-11-05 09:33] VITALS: BP 141/94
[2017-11-05] MEDS ORDERED: PROPOFOL INJECTION 50 ML IV ONE (09:44)
--- NOTE | 2017-11-05 09:47 | Progress Note-Pre Operative ---
Pre-Operative Progress Note H&P Reviewed The H&P was reviewed, patient examined and no changes noted. Time Seen by Provider: 09:44 Date H&P Reviewed: Nov 05, 2017 Time H&P Reviewed: 09:46 Pre-Operative Diagnosis: Gastritis, Screening Colonoscopy ALBINO FARIAS DO Nov 05, 2017 09:47
[2017-11-05] MEDS ORDERED: LIDOCAINE PF 2% 5 ML (XYLOCAINE) VIAL ONE (09:50)
[2017-11-05] MEDS ORDERED: GLYCOPYRROLATE 0.2 MG/ML (ROBINUL) 2 ML VIAL ONE (10:02)
--- NOTE | 2017-11-05 10:26 | Progress Note-Post Operative ---
Post-Operative Progess Note Surgeon (s)/District Attorney (s) Surgeon ALBINO FARIAS DO District Attorney: none Pre-Operative Diagnosis Gastritis, Screening Colonoscopy Post-Operative Diagnosis Gastritis, Duodenitis, Hiatal Hernia Diverticula, Internal hemorrhoids Procedure & Operative Findings Date of Procedure 11/05/17 Procedure Performed/Findings EGD with bx Colonoscopy Anesthesia Type IV sedation by SECURITY AND PRIVACY CONSULTANT Estimated Blood Loss Estimated blood loss (mL): scant Specimens/Packing Specimens Removed Duodenal bx Antral bx GE jxn bx ALBINO FARIAS DO Nov 05, 2017 10:26
--- NOTE | 2017-11-05 10:27 | Endoscopy Discharge Instruct ---
Endo Procedure/Findings Findings 1.: Gastritis 2.: Hiatal Hernia 3.: Diverticulosis 4.: Internal Hemorrhoids Discharge Instructions - Activity: You might feel a little sleepy until tomorrow. This is due to the medicine you received to relax you. Until tomorrow, you should: NOT drive a car, operate machinery or power tools. NOT drink any alcoholic beverages. NOT make any important decisions or sign importortant papers. Do not return to work until tomorrow, unless otherwise instructed. Resume previous activities tomorrow. Diet: Start by taking liquids. If you tolerate liquids, advance to solid food. Make appointment for one week. Notify Physician - If you experience excessive bleeding, unusual abdominal pain, fever, or chest pain, contact your doctor immediately. Follow-Up: - I have received and understand the above instructions and will call my doctor if I have any further questions. Patient Signature Date Nurse Signature Other (Relationship) ALBINO FARIAS DO Nov 05, 2017 10:27
[2017-11-05 10:40] VITALS: BP 101/62
[2017-11-05 11:10] VITALS: BP 113/77
[2017-11-05 11:15] VITALS: BP 113/77
--- NOTE | 2017-11-05 12:52 | OPERATIVE REPORT ---
DATE OF SERVICE: 11/05/2017 PREOPERATIVE DIAGNOSES: 1. Gastritis. 2. Screening colonoscopy. POSTOPERATIVE DIAGNOSES: 1. Gastritis. 2. Duodenitis. 3. Hiatal hernia. 4. Diverticula. 5. Internal hemorrhoids. PROCEDURES: 1. EGD with biopsy. 2. Colonoscopy. SURGEON: Phil Lobo DO. PARCEL WRAPPER: None. ANESTHESIA: IV sedation by the INNOVATION ANALYST. SPECIMEN: Biopsy from the duodenum as well as one from the antrum and one from the GE junction. BLOOD LOSS: Scant. FLUIDS: Per anesthesia. POSTOPERATIVE CONDITION: Stable. INDICATION FOR PROCEDURE: The patient is a 61-year-old female, who has been having some chronic gastritis. She has also not had a colonoscopy and needs one for screening. DESCRIPTION OF PROCEDURE: The patient had some inflammation in the stomach as well as in the duodenum almost looked like areas of ulcers and she had a hiatal hernia with some change in the Z line at the GE junction. Colonoscopy showed some diverticula and some internal hemorrhoids. No other obvious pathology. PROCEDURE NOTE: After informed consent was obtained, the patient was brought to the endoscopy suite and placed in the left lateral decubitus position. She was administered IV sedation by the INNOVATION ANALYST, who then monitored her vitals the entire time, heart rate, blood pressure, pulse ox and the scope was inserted down the mouth into the esophagus and down in the stomach. Upon entering the stomach, noted some inflammation in the antrum, pushed into the duodenum and looked like there was some inflammation here and looked like there may have been like ulcer, did a biopsy of the duodenum, pulled back in the antrum, saw another area that needed biopsy and biopsy of this. Then retroflexed the scope, saw hiatal hernia, took a picture and then pulled into the esophagus at the GE junction, looked like there was some creeping up of this and changes between the stomach and the esophagus, did a biopsy right here at the GE junction, pulled up, the rest of the esophagus looked good and then pulled the scope out. Switched scopes, switched gloves and went to the other side. Inserted the scope into the rectum and then pushed all the way to 140 cm, able to get at the cecum, took a picture of appendiceal orifice, noted the ileocecal valve and then slowly withdrew the scope insufflating to look circumferentially at the purcell, looking at the cecum up the ascending colon to hepatic flexure and then down the transverse colon and splenic flexure, into the descending colon and finally into the sigmoid, saw some very small diverticula in the sigmoid. Continued down into the rectum, retroflexed the rectal vault, saw some very minimal internal hemorrhoids and then removed the scope. The patient tolerated the procedure and she was recovered in the endoscopy suite. Job ID: [id number] DocumentID: [id number] Dictated Date: 11/05/2017 11:09:29 [employer] Developer Date: 11/05/2017 12:51:56 Dictated By: DO PRANEETH LAWLER
--- NOTE | 2017-11-05 13:58 | Anesthesia-General Post-Op ---
MAC Patient Condition Mental Status/LOC: Same as Preop Cardiovascular: Satisfactory Nausea/Vomiting: Absent Respiratory: Satisfactory Pain: Controlled Complications: Absent Post Op Complications Complications None Follow Up Care/Instructions Patient Instructions None needed. Anesthesiology Discharge Order Discharge Order Patient is doing well, no complaints, stable vital signs, no apparent adverse anesthesia problems. No complications reported per nursing. JOSE BUENROSTRO CRNA Nov 05, 2017 13:58
== END 2017-11-05 11:15 | disposition home or self-care (01) ==
LOC: ENDO 08:47
PROVIDERS: ATTEND Surgery
DX: K57.30 Diverticulosis of large intestine without perforation or abscess without bleeding (principal); Z12.11 Encounter for screening for malignant neoplasm of colon; K64.8 Other hemorrhoids; K29.70 Gastritis, unspecified, without bleeding; K29.80 Duodenitis without bleeding; K44.9 Diaphragmatic hernia without obstruction or gangrene; Z86.711 Personal history of pulmonary embolism; Z86.718 Personal history of other venous thrombosis and embolism; Z87.891 Personal history of nicotine dependence

== ENCOUNTER → 2018-02-08 | Outpatient (CLI) | payer MEDICARE, MEDICAID ==
[~2018-02-08] MED LIST changes: +HYDR-4226 PO; -HYDR-757 PO
--- NOTE | 2018-02-08 16:21 | Diagnostic Imaging Report ---
PROCEDURE: US carotid duplex, bilateral. TECHNIQUE: Multiple real-time grayscale images were obtained over the carotid arteries in various projections, bilaterally. Additional duplex Doppler and color Doppler images were also obtained. INDICATION: Stenosis of bilateral carotid arteries. FINDINGS: No significant plaquing is seen in either carotid system. Velocities are normal bilaterally. No significant velocity elevation or stenosis is identified. There is no occlusion. Both vertebral arteries show antegrade flow. Parameters based on the consensus panel Parry-Scale and Doppler ultrasound criteria published February 2003, Radiology, Volume 229. DOPPLER (peak systolic velocity M/S Right Left CCA .73 .76 ICA Proximal .45 .68 ICA Mid .64 .99 ICA Distal .84 .95 RATIO 1.1 1.3 ECA .70 .62 VERT .48 .34 IMPRESSION: No evidence of a hemodynamically significant stenosis. Dictated by: Dictated on workstation # [id number]
== END ==
LOC: RAD 14:45
PROVIDERS: ATTEND Family Medicine
DX: I65.23 Occlusion and stenosis of bilateral carotid arteries (principal); Z86.718 Personal history of other venous thrombosis and embolism
CPT/HCPCS: 93880

== ENCOUNTER → 2018-02-19 | Outpatient (CLI) | payer MEDICARE, MEDICAID ==
[~2018-02-19] MED LIST changes: +IOHEXOL 350 MG/ML 100 ML (OMNIPAQUE 350) VIAL IV ONE; +NS 250 ML (IVPB) BAG IV ONE; +RECEIVED CONTRAST (Hold Metformin) IV SCH
[2018-02-19 12:58] LABS: BUN/CREATININE RATIO 22; CREATININE SERUM 0.88 MG/DL (0.60-1.30); GFR ESTIMATED > 60
--- NOTE | 2018-02-19 13:38 | Diagnostic Imaging Report ---
PROCEDURE: CT chest with contrast only. TECHNIQUE: Multiple contiguous axial images were obtained through the chest after administration of intravenous contrast. INDICATION: Chest pain, shortness of air. COMPARISON: Prior screening chest CT from 05/05/2017. FINDINGS: No axillary lymphadenopathy is seen. No definite hilar or mediastinal lymphadenopathy is seen. No pericardial or pleural fluid is detected. The thoracic aorta is of normal caliber. No dissection is seen. The central pulmonary arteries are unremarkable. The previously noted micronodules in the region of the superior segment of the left lower lobe are no longer appreciated. There is some minimal scarring or atelectasis in the lingula. The nodule more inferiorly in the left lower lobe on the prior study is no longer appreciated. No new parenchymal abnormalities are seen. The upper abdomen is unremarkable. IMPRESSION: Unremarkable CT of the chest with contrast. No thoracic lymphadenopathy or pulmonary mass is seen. The previously noted micronodules in the left lung are no longer identified. Dictated by: Dictated on workstation # [id number]
== END ==
LOC: RAD 12:13
PROVIDERS: ATTEND Internal Medicine Interventional Cardiology
DX: R07.9 Chest pain, unspecified (principal); R06.02 Shortness of breath; Z86.718 Personal history of other venous thrombosis and embolism
CPT/HCPCS: 36415; 71260; 82565; 84520

== ENCOUNTER → 2018-03-05 | Outpatient (CLI) | payer MEDICARE, MEDICAID ==
[~2018-03-05] MED LIST changes: -IOHEXOL 350 MG/ML 100 ML (OMNIPAQUE 350) VIAL IV ONE; -NS 250 ML (IVPB) BAG IV ONE; -RECEIVED CONTRAST (Hold Metformin) IV SCH
--- NOTE | 2018-03-05 11:59 | Diagnostic Imaging Report ---
PROCEDURE: US left lower extremity venous. TECHNIQUE: Multiple real-time grayscale images were obtained over the left lower extremity in various projections. Additional duplex Doppler and color Doppler images were also obtained. INDICATION: Pain, deep venous thrombosis. COMPARISON: 11/02/2017. FINDINGS: Normal flow, compression, and augmentation within the visualized deep venous structures of the left lower extremity. IMPRESSION: No evidence of deep venous thrombosis within the left lower extremity. Dictated by: Dictated on workstation # [id number]
== END ==
LOC: RAD 08:42
PROVIDERS: ATTEND Internal Medicine Interventional Cardiology
DX: M79.89 Other specified soft tissue disorders (principal); I26.99 Other pulmonary embolism without acute cor pulmonale

== ENCOUNTER → 2018-03-18 | Outpatient (CLI) | payer MEDICARE, MEDICAID | LOC: CARD 12:41 | PROVIDERS: ATTEND Internal Medicine Interventional Cardiology | DX: R07.9 Chest pain, unspecified (principal); I82.409 Acute embolism and thrombosis of unspecified deep veins of unspecified lower extremity; E78.5 Hyperlipidemia, unspecified; I26.99 Other pulmonary embolism without acute cor pulmonale; R06.02 Shortness of breath | CPT/HCPCS: 93306 ==

== ENCOUNTER → 2018-05-07 | Outpatient (CLI) | payer MEDICARE, MEDICAID ==
--- NOTE | 2018-05-07 17:28 | Diagnostic Imaging Report ---
INDICATION: Routine screening. COMPARISON: Prior mammogram from 05/05/2017 and 11/15/2013. FINDINGS: 2D and 3D bilateral screening mammography was performed with CAD. The current study was also evaluated with a Computer Aided Detection (CAD) system. FINDINGS: Scattered fibroglandular densities are identified, bilaterally. The parenchymal pattern is stable. No mass or malignant appearing microcalcifications are seen. The axillae are unremarkable. IMPRESSION: No mammographic features suspicious for malignancy are identified. ACR BI-RADS Category 1: Negative. Result letter will be mailed to the patient. Note: At least 10% of breast cancer is not imaged by mammography. Dictated on workstation # [id number]
== END ==
LOC: RAD 09:20
PROVIDERS: ATTEND Family Medicine
DX: Z12.31 Encounter for screening mammogram for malignant neoplasm of breast (principal)
CPT/HCPCS: 77067

== ENCOUNTER → 2018-09-02 | Outpatient (CLI) | payer MEDICARE, MEDICAID ==
--- NOTE | 2018-09-02 20:14 | Diagnostic Imaging Report ---
EXAMINATION: Magnetic resonance imaging of the left ankle without contrast. DATE: September 02, 2018. COMPARISON: MRI left ankle, December 15, 2014. HISTORY: 62-year-old female, left ankle pain and swelling. TECHNIQUE: Magnetic Resonance Imaging sequences were performed of the ankle without contrast. [< >] FINDINGS: TENDONS AND LIGAMENTS: The Achilles tendon is unremarkable. The posterior flexor tendons - tibialis posterior, flexor digitorum longus, flexor hallucis longus - are intact. The peroneal tendons - peroneus longus and peroneus brevis - are intact. The anterior extensor tendons - tibialis anterior, extensor hallucis longus and extensor digitorum longus tendons - are intact. The anterior and posterior syndesmotic ligaments are intact. The anterior talofibular, posterior talofibular, calcaneofibular and deltoid ligaments are intact. The plantar fascia is intact. JOINTS: The ankle mortise is intact. The subtalar and visualized joints of the mid-foot are intact. BONE: The bones all have normal configuration. The bone marrow signal is within normal limits. Specifically, negative for fracture, osteomyelitis, osteonecrosis, or marrow replacing process. The talar dome is intact. BURSAE AND SOFT TISSUES: The bursae and soft tissues surrounding the ankle are unremarkable. IMPRESSION: Unremarkable MRI of the left ankle. Dictated on workstation # [id number]
== END ==
LOC: RAD 12:52
DX: M76.822 Posterior tibial tendinitis, left leg (principal)
CPT/HCPCS: 73721

== ENCOUNTER → 2018-12-24 | Outpatient (CLI) | payer MEDICARE, MEDICAID ==
[~2018-12-24] MED LIST changes: +GADOBUTROL 7.5 MMOL/7.5 ML (GADAVIST) VIAL IV ONE; +RANI-324 PO; +RANI-613 PO; -RANI150T46 PO; -RANI75TA21 PO
--- NOTE | 2018-12-24 10:33 | Diagnostic Imaging Report ---
PROCEDURE: MR imaging of the brain with and without contrast. TECHNIQUE: Multiplanar, multisequence MR imaging of the brain was performed with and without contrast. INDICATION: Meningioma. COMPARISON: Comparison made to prior examination 06/09/2014. FINDINGS: The ventricles and sulci are within normal limits. There is no hydrocephalus. No midline shift. There are no areas of diffusion restriction appreciated to suggest an acute CVA. Note is again made of a small homogeneous enhancing extra-axial mass along the lateral aspect of the posterior right frontal lobe measuring 8 mm. This is unchanged. There is no other mass, hemorrhage, or extra-axial fluid collection. There are no other abnormal areas of contrast enhancement. The frontal ethmoid, sphenoid, and maxillary sinuses are clear. Mastoid air cells are clear. The globes and intraorbital structures are unremarkable. The central arterial and dural venous sinus flow-voids are preserved. IMPRESSION: 1. Unchanged 8 mm homogeneously enhancing extra-axial mass along the posterior lateral right frontal lobe. This remains compatible with meningioma. 2. Otherwise unremarkable MRI brain. Dictated by: Dictated on workstation # [id number]
== END ==
LOC: RAD 08:16
PROVIDERS: ATTEND Internal Medicine
DX: D32.0 Benign neoplasm of cerebral meninges (principal); G93.89 Other specified disorders of brain
CPT/HCPCS: 70553

== ENCOUNTER → 2019-01-27 | Outpatient (CLI) | payer MEDICARE, MEDICAID ==
[~2019-01-27] MED LIST changes: -GADOBUTROL 7.5 MMOL/7.5 ML (GADAVIST) VIAL IV ONE
--- NOTE | 2019-01-27 09:08 | Diagnostic Imaging Report ---
PROCEDURE: US Thyroid. TECHNIQUE: Multiple real-time grayscale images were obtained of the thyroid in various projections. INDICATION: Thyroid nodule, follow-up. Correlation is made with prior thyroid ultrasound from 05/16/2016. Right lobe of the thyroid measures 3.9 x 1.3 x 1.6 cm, and the left lobe measures 3.2 x 1.0 x 1.2 cm. Isthmus is 3 mm in thickness. There is a solid nodule with cystic components in the right lobe measuring 1.6 x 1.1 x 1.1 cm. Differences in size appear to be owing to slight differences in measurement technique. Overall this nodule appears to be very similar to examination from 05/16/2016. No new nodule is identified. IMPRESSION: Stable right lobe thyroid nodule when compared with examination from 05/16/2016. No new thyroid masses detected. Dictated by: Dictated on workstation # [id number]
== END ==
LOC: RAD 07:58
PROVIDERS: ATTEND Internal Medicine
DX: E04.1 Nontoxic single thyroid nodule (principal)
CPT/HCPCS: 76536

== ENCOUNTER → 2019-04-18 | Outpatient (CLI) | payer MEDICARE, MEDICAID ==
--- NOTE | 2019-04-18 14:21 | Diagnostic Imaging Report ---
PROCEDURE: US left lower extremity venous. TECHNIQUE: Multiple real-time grayscale images were obtained over the left lower extremity in various projections. Additional duplex Doppler and color Doppler images were also obtained. INDICATION: Left calf pain. FINDINGS: There is no evidence of a left lower extremity DVT. Left lower extremity deep venous system shows normal compressibility with normal response to augmentation and Valsalva. No fluid collection or mass is detected. IMPRESSION: No evidence of left lower extremity DVT. Dictated by: Dictated on workstation # [id number]
== END ==
LOC: RAD 13:39
PROVIDERS: ATTEND Nurse Practitioner
DX: M79.605 Pain in left leg (principal); Z86.718 Personal history of other venous thrombosis and embolism

== ENCOUNTER → 2022-11-26 | Outpatient (CLI) | payer MEDICARE, MEDICAID ==
--- NOTE | 2022-11-26 11:09 | Diagnostic Imaging Report ---
PROCEDURE: US Gallbladder. TECHNIQUE: Multiple real-time grayscale images were obtained over the right upper quadrant in various projections. INDICATION: Gallstones. FINDINGS: Liver is normal in size at 15 cm. Portal vein is patent and shows normal direction of flow. Gallbladder does contain stones. There is no wall thickening or biliary duct dilatation. Pancreas was obscured by bowel gas. Aorta is nonaneurysmal. IVC is patent. Right kidney is without calculi or hydronephrosis. There is no ascites. IMPRESSION: Cholelithiasis without evidence of acute cholecystitis. Dictated by: Dictated on workstation # [id number]
== END ==
LOC: RAD 07:22
PROVIDERS: ATTEND Internal Medicine
DX: K80.20 Calculus of gallbladder without cholecystitis without obstruction (principal)
CPT/HCPCS: 76705